=== PATIENT | female | born 1980 | race Caucasian/White ===

== ENCOUNTER → 2020-08-01 09:59 | Outpatient (BNVA) | payer OTHER, SELFPAY | PROVIDERS: Visit Provider Advanced Practice Midwife | DX: L73.9 Follicular disorder, unspecified (principal) | CPT/HCPCS: 99213 ==

== ENCOUNTER 2021-01-30 08:29 | Outpatient (REF) | payer OTHER, SELFPAY ==
[2021-01-30 10:42] LABS: HBsAGNum1 0.18 S/CO (0.00-0.99); Hepatitis B Surface Antigen Negative (Negative)
[2021-01-30 10:45] LABS: HIV AB/AG Nonreactive (Nonreactive); HIV Num 1 0.06 S/CO (0.00-0.99); ~HepC Num1 0.08 S/CO (0.00-0.79); ~Hepatitis C Antibody Nonreactive (Nonreactive)
[2021-01-31 04:30] LABS: Syphilis Screen Nonreactive (Nonreactive)
[2021-01-31 10:05] LABS: BV Int Neg Control Negative (Negative)
[2021-01-31 10:06] LABS: BV Int Pos Control Positive (Positive)
[2021-01-31 10:20] LABS: CT PCR NOT DETECTED (Not Detect.); NG PCR NOT DETECTED (Not Detect.)
[2021-02-03 18:51] LABS: HPV mRNA E6/E7 rflx Not Detected (Not Detected)
== END 2021-01-30 08:30 | disposition home or self-care (01) ==
LOC: HO.LAB 08:29
PROVIDERS: PCP Internal Medicine; Visit Provider Advanced Practice Midwife
DX: Z01.419 Encounter for gynecological examination (general) (routine) without abnormal findings (principal); Z11.51 Encounter for screening for human papillomavirus (HPV); Z11.4 Encounter for screening for human immunodeficiency virus [HIV]; Z11.3 Encounter for screening for infections with a predominantly sexual mode of transmission; Z01.84 Encounter for antibody response examination; Z20.2 Contact with and (suspected) exposure to infections with a predominantly sexual mode of transmission; Z87.42 Personal history of other diseases of the female genital tract
CPT/HCPCS: 36415; 86780; 86803; 87340; 87389; 87480; 87491; 87510; 87591; 87624; 87660; 88142

== ENCOUNTER 2021-03-29 08:30 | Outpatient (REF) | payer OTHER, SELFPAY ==
--- NOTE | ~2021-03-29 | MM_ITS ---
EXAMINATION: MM SCREENING DIGITAL BREAST TOMOSYNTHESIS, BILATERAL CLINICAL INFORMATION: Screening. Asymptomatic. Age 40. Family history breast cancer, mother. No prior breast imaging. The lifetime risk of breast cancer based on the Tyrer-Cuzick Model is 13%. COMPARISON: None (current study represents initial baseline exam). TECHNIQUE: Digital breast tomosynthesis is performed in both the craniocaudal and mediolateral oblique views along with computer-aided detection (CAD). Synthesized 2D images are generated from the tomosynthesis. FINDINGS: There are scattered areas of fibroglandular density (ACR BI-RADS breast composition Category b). Breast tissue composition borders on heterogeneously dense. There are no significant masses, abnormal calcifications, or other abnormalities. The axilla and skin contours are unremarkable. MM/MM tomosynthesis screening BI IMPRESSION: No mammographic evidence of malignancy. ASSESSMENT: BI-RADS 1: Negative RECOMMENDATION: Routine annual mammography screening, by age 40 or earlier as clinical risk factors warrant. This patient's information was entered into a reminder system with a target due date for their next mammogram.
== END 2021-03-29 08:31 | disposition home or self-care (01) ==
LOC: HO.MAMMO 08:30
PROVIDERS: Visit Provider Internal Medicine
DX: Z12.31 Encounter for screening mammogram for malignant neoplasm of breast (principal)
CPT/HCPCS: 77063; 77067

== ENCOUNTER 2021-10-09 11:07 | Outpatient (REF) | payer OTHER, SELFPAY ==
[2021-10-09 11:24] LABS: MANUAL DIFF FLAG NO
[2021-10-09 11:46] LABS: Basophils Percent Auto 0.2 % (0-2); Eosinophils Absolute Auto 0.1 X10*3/uL (0.0-0.4); Eosinophils Percent Auto 0.9 % (0-4); Hematocrit 40.1 % (37.0-47.0); Hemoglobin 13.2 g/dl (12.0-16.0); Imm Gran Abs Auto 0.01 X10*3/uL (0.00-0.03); Imm Gran Pct Auto 0.2 % (0.0-0.4); Lymphocytes Absolute Auto 1.5 X10*3/uL (1.2-4.9); Lymphocytes Percent Auto 22.3 % (20-40); Mean Corpuscular HGB Conc 32.9 g/dl (31.0-35.0); Mean Corpuscular Hemoglobin 27.3 pg (27.0-33.0); Mean Platelet Volume 10.3 fL (9.4-12.3); Monocytes Absolute Auto 0.5 X10*3/uL (0.1-1.2); Monocytes Percent Auto 7.7 % (2-11); Neutrophils Absolute Auto 4.5 x10*3/uL (2.0-8.3); Neutrophils Percent Auto 68.7 % (45-73); Platelet Count 237 X10*3/uL (160-400); Red Blood Count 4.83 X10*6/uL (4.20-5.50); Red Cell Distribution Width 13.7 % (11.0-16.0); White Blood Count 6.5 X10*3/uL (4.8-10.8)
[2021-10-09 12:06] LABS: Appearance Urine CLEAR; Color Urine YELLOW; Glucose Urine UA NEG (NEG); Leukocyte Esterase Urine NEG (NEG); Nitrite Urine NEG (NEG); Specific Gravity - Urine >= 1.030 (1.005-1.025); Urine Blood NEG (NEG); Urine Ketones NEG (NEG); Urine Protein NEG (NEG-TRACE)
[2021-10-09 12:10] LABS: Alanine Aminotransferase 18 U/L (0-31); Albumin Level 4.3 g/dL (3.5-5.0); Alkaline Phosphatase 80 U/L (39-117); Anion Gap 9 (12-20); Aspartate Amino Transferase 18 U/L (5-31); Bilirubin Total 0.5 mg/dL (0.0-1.0); Blood Urea Nitrogen 11 mg/dL (9-16); Calcium 9.8 mg/dL (8.4-10.2); Carbon Dioxide 26 mmol/L (22-29); Chloride 107 mmol/L (96-108); Cholesterol 169 mg/dL; Estimated Glomerular Filt Rate > 60; Glucose Fasting 95 mg/dL (60-99); HDL Cholesterol 46 mg/dL; LDL Cholesterol Calculated 105 mg/dl; Potassium 5.1 mmol/L (3.3-5.1); Sodium 137 mmol/L (135-145); Triglycerides 91 mg/dL
[2021-10-09 12:32] LABS: TSH reflex Free T4 0.94 uIU/mL (0.32-4.0); Vitamin D 25-OH Total 12.6 ng/mL (>30)
== END 2021-10-09 11:08 | disposition home or self-care (01) ==
LOC: HO.LAB 11:07
PROVIDERS: PCP Internal Medicine; Visit Provider Internal Medicine
DX: Z00.00 Encounter for general adult medical examination without abnormal findings (principal); E55.9 Vitamin D deficiency, unspecified
CPT/HCPCS: 36415; 80053; 80061; 81003; 82306; 84443; 85025

== ENCOUNTER 2022-02-02 08:25 | Outpatient (REF) | payer OTHER, SELFPAY ==
[2022-02-02 15:40] LABS: CT PCR NOT DETECTED (Not Detect.); NG PCR NOT DETECTED (Not Detect.)
[2022-02-03 15:27] LABS: BV Int Neg Control Negative (Negative); BV Int Pos Control Positive (Positive)
[2022-02-04 19:21] LABS: HPV mRNA E6/E7 rflx Not Detected (Not Detected)
== END 2022-02-02 08:26 | disposition home or self-care (01) ==
LOC: HO.LAB 08:25
PROVIDERS: PCP Internal Medicine; Visit Provider Advanced Practice Midwife
DX: Z01.411 Encounter for gynecological examination (general) (routine) with abnormal findings (principal); Z11.51 Encounter for screening for human papillomavirus (HPV); Z20.2 Contact with and (suspected) exposure to infections with a predominantly sexual mode of transmission; L65.9 Nonscarring hair loss, unspecified; R53.83 Other fatigue; Z98.890 Other specified postprocedural states; Z80.8 Family history of malignant neoplasm of other organs or systems
CPT/HCPCS: 87480; 87491; 87510; 87591; 87624; 87660; 88142

== ENCOUNTER 2022-02-04 10:51 | Outpatient (REF) | payer OTHER, SELFPAY ==
[2022-02-04 11:37] LABS: Hematocrit 40.7 % (37.0-47.0); Mean Corpuscular HGB Conc 31.9 g/dl (31.0-35.0); Mean Corpuscular Hemoglobin 26.7 pg (27.0-33.0); Mean Corpuscular Volume 83.7 fL (80.0-98.0); Mean Platelet Volume 10.2 fL (9.4-12.3); Platelet Count 249 X10*3/uL (160-400); Red Blood Count 4.86 X10*6/uL (4.20-5.50); White Blood Count 6.2 X10*3/uL (4.8-10.8)
[2022-02-04 12:19] LABS: HBsAGNum1 0.17 S/CO (0.00-0.99); HIV AB/AG Nonreactive (Nonreactive); HIV Num 1 0.06 S/CO (0.00-0.99); Hepatitis B Surface Antigen Negative (Negative); ~HepC Num1 0.08 S/CO (0.00-0.79); ~Hepatitis C Antibody Nonreactive (Nonreactive)
[2022-02-04 12:35] LABS: Syphilis Screen Nonreactive (Nonreactive)
[2022-02-04 12:49] LABS: Thyroid Stimulating Hormone 1.32 uIU/mL (0.32-4.0)
== END 2022-02-04 10:52 | disposition home or self-care (01) ==
LOC: HO.LAB 10:51
PROVIDERS: PCP Internal Medicine; Visit Provider Advanced Practice Midwife
DX: Z01.419 Encounter for gynecological examination (general) (routine) without abnormal findings (principal); Z11.4 Encounter for screening for human immunodeficiency virus [HIV]; Z11.59 Encounter for screening for other viral diseases; Z11.8 Encounter for screening for other infectious and parasitic diseases; Z13.29 Encounter for screening for other suspected endocrine disorder; R53.83 Other fatigue; L65.9 Nonscarring hair loss, unspecified; Z98.890 Other specified postprocedural states
CPT/HCPCS: 36415; 84443; 85027; 86780; 86803; 87340; 87389

== ENCOUNTER 2022-11-24 09:56 | Outpatient (REF) | payer OTHER, SELFPAY ==
[2022-11-24 10:16] LABS: MANUAL DIFF FLAG NO
[2022-11-24 10:30] LABS: Basophils Percent Auto 0.4 % (0-2); Eosinophils Absolute Auto 0.1 X10*3/uL (0.0-0.4); Hematocrit 40.8 % (37.0-47.0); Hemoglobin 13.4 g/dl (12.0-16.0); Imm Gran Abs Auto 0.02 X10*3/uL (0.00-0.03); Imm Gran Pct Auto 0.3 % (0.0-0.4); Lymphocytes Absolute Auto 2.4 X10*3/uL (1.2-4.9); Lymphocytes Percent Auto 33.3 % (20-40); Mean Corpuscular HGB Conc 32.8 g/dl (31.0-35.0); Mean Corpuscular Hemoglobin 27.3 pg (27.0-33.0); Mean Corpuscular Volume 83.3 fL (80.0-98.0); Mean Platelet Volume 10.2 fL (9.4-12.3); Monocytes Absolute Auto 0.5 X10*3/uL (0.1-1.2); Monocytes Percent Auto 6.3 % (2-11); Neutrophils Absolute Auto 4.3 x10*3/uL (2.0-8.3); Neutrophils Percent Auto 58.7 % (45-73); Platelet Count 260 X10*3/uL (160-400); Red Cell Distribution Width 13.8 % (11.0-16.0); White Blood Count 7.3 X10*3/uL (4.8-10.8)
[2022-11-24 10:44] LABS: Appearance Urine Clear; Color Urine Yellow; Glucose Urine UA Negative (Negative); Leukocyte Esterase Urine Negative (Negative); Nitrite Urine Negative (Negative); PH 6.5 (5.0-9.0); Urine Blood Negative (Negative); Urine Ketones Negative (Negative); Urine Protein Negative (Neg-Trace)
[2022-11-24 11:08] LABS: Erythrocyte Sedimentation Rate 12 MM/HR (0-20)
[2022-11-24 11:22] LABS: Alanine Aminotransferase 26 U/L (0-31); Albumin Level 4.2 g/dL (3.5-5.0); Alkaline Phosphatase 91 U/L (39-117); Anion Gap 12 (12-20); Aspartate Amino Transferase 19 U/L (5-31); Bilirubin Total 0.6 mg/dL (0.0-1.0); Blood Urea Nitrogen 10 mg/dL (9-16); C Reactive Protein 0.51 mg/dL (< or = 0.50); Calcium 9.5 mg/dL (8.4-10.2); Carbon Dioxide 26 mmol/L (22-29); Chloride 105 mmol/L (96-108); Cholesterol 201 mg/dL; Estimated Glomerular Filt Rate > 60; Glucose Fasting 97 mg/dL (60-99); HDL Cholesterol 50 mg/dL; LDL Cholesterol Calculated 124 mg/dl; Potassium 4.3 mmol/L (3.3-5.1); Sodium 139 mmol/L (135-145); Total Protein 6.9 g/dL (6.5-8.0); Triglycerides 139 mg/dL
[2022-11-24 11:39] LABS: Folate 6.5 ng/mL (> or = 4.0); TSH reflex Free T4 0.95 uIU/mL (0.32-4.0); Vitamin B12 374 pg/mL (200-900); Vitamin D 25-OH Total 10.8 ng/mL (>30)
[2022-11-26 15:04] LABS: Anti Nuclear Antibody Screen NEGATIVE (NEGATIVE)
== END 2022-11-24 09:57 | disposition home or self-care (01) ==
LOC: HO.LAB 09:56
PROVIDERS: PCP Internal Medicine; Visit Provider Internal Medicine
DX: Z00.00 Encounter for general adult medical examination without abnormal findings (principal); R53.83 Other fatigue; R30.0 Dysuria; M25.50 Pain in unspecified joint; E55.9 Vitamin D deficiency, unspecified; E78.00 Pure hypercholesterolemia, unspecified; E53.8 Deficiency of other specified B group vitamins
CPT/HCPCS: 36415; 80053; 80061; 81003; 82306; 82607; 82746; 84443; 85025; 85652; 86038; 86039; 86140

== ENCOUNTER 2022-12-04 15:30 | Outpatient (REF) | payer OTHER, SELFPAY ==
--- NOTE | ~2022-12-04 | MM_ITS ---
EXAMINATION: MM SCREENING DIGITAL BREAST TOMOSYNTHESIS, BILATERAL CLINICAL INFORMATION: Screening. Asymptomatic. The lifetime risk of breast cancer based on the Tyrer-Cuzick Model is 13%. COMPARISON: Mammography: 03/29/2021 (baseline) TECHNIQUE: Digital breast tomosynthesis is performed in both the craniocaudal and mediolateral oblique views along with computer-aided detection (CAD). Synthesized 2D images are generated from the tomosynthesis. FINDINGS: The breasts are heterogeneously dense, which may obscure small masses (ACR BI-RADS breast composition Category c). There are no significant masses, abnormal calcifications, or other abnormalities. Parenchymal pattern is similar to prior baseline exam. No architectural abnormality or significant changes. The axilla are unremarkable. MM/MM tomosynthesis screening BI IMPRESSION: No mammographic evidence of malignancy. ASSESSMENT: BI-RADS 1: Negative RECOMMENDATION: Routine annual mammography screening. This patient's information was entered into a reminder system with a target due date for their next mammogram.
== END 2022-12-04 15:31 | disposition home or self-care (01) ==
LOC: HO.MAMMO 15:30
PROVIDERS: PCP Internal Medicine; Visit Provider Internal Medicine
DX: Z12.31 Encounter for screening mammogram for malignant neoplasm of breast (principal)
CPT/HCPCS: 77063; 77067

== ENCOUNTER 2023-04-08 13:31 | Outpatient (REF) | payer OTHER, SELFPAY ==
[2023-04-09 00:54] LABS: CT PCR NOT DETECTED (Not Detect.); NG PCR NOT DETECTED (Not Detect.)
[2023-04-09 09:33] LABS: BV Int Neg Control Negative (Negative); BV Int Pos Control Positive (Positive)
[2023-04-13 22:13] LABS: HPV mRNA E6/E7 rflx Not Detected (Not Detected)
== END 2023-04-08 13:32 | disposition home or self-care (01) ==
LOC: HO.LNP 13:31
PROVIDERS: PCP Internal Medicine; Visit Provider Advanced Practice Midwife
DX: Z01.419 Encounter for gynecological examination (general) (routine) without abnormal findings (principal); E66.9 Obesity, unspecified; M25.50 Pain in unspecified joint; R53.83 Other fatigue; Z20.2 Contact with and (suspected) exposure to infections with a predominantly sexual mode of transmission; Z80.8 Family history of malignant neoplasm of other organs or systems; Z80.3 Family history of malignant neoplasm of breast; Z98.890 Other specified postprocedural states; Z79.899 Other long term (current) drug therapy
CPT/HCPCS: 0353U; 87480; 87510; 87624; 87660; 88142

== ENCOUNTER 2023-04-21 10:19 | Outpatient (REF) | payer OTHER, SELFPAY ==
[2023-04-21 11:01] LABS: Hematocrit 40.9 % (37.0-47.0); Hemoglobin 13.2 g/dl (12.0-16.0); Mean Corpuscular HGB Conc 32.3 g/dl (31.0-35.0); Mean Corpuscular Hemoglobin 26.8 pg (27.0-33.0); Mean Platelet Volume 10.7 fL (9.4-12.3); Platelet Count 236 X10*3/uL (160-400); Red Blood Count 4.93 X10*6/uL (4.20-5.50); Red Cell Distribution Width 14.5 % (11.0-16.0); White Blood Count 7.8 X10*3/uL (4.8-10.8)
[2023-04-21 11:23] LABS: Glucose Random 93 mg/dL (60-115)
[2023-04-21 11:42] LABS: HBsAGNum1 0.36 S/CO (0.00-0.99); HIV AB/AG Nonreactive (Nonreactive); HIV Num 1 0.05 S/CO (0.00-0.99); Hepatitis B Surface Antigen Negative (Negative); ~HepC Num1 0.09 S/CO (0.00-0.79); ~Hepatitis C Antibody Nonreactive (Nonreactive)
[2023-04-21 11:43] LABS: Syphilis Screen Nonreactive (Nonreactive)
[2023-04-21 11:46] LABS: Thyroid Stimulating Hormone 0.78 uIU/mL (0.32-4.0)
== END 2023-04-21 10:20 | disposition home or self-care (01) ==
LOC: HO.LAB 10:19
PROVIDERS: PCP Internal Medicine; Visit Provider Advanced Practice Midwife
DX: Z12.31 Encounter for screening mammogram for malignant neoplasm of breast (principal); M25.50 Pain in unspecified joint; Z80.8 Family history of malignant neoplasm of other organs or systems; Z98.890 Other specified postprocedural states; R53.83 Other fatigue; Z80.3 Family history of malignant neoplasm of breast; Z20.2 Contact with and (suspected) exposure to infections with a predominantly sexual mode of transmission; E66.9 Obesity, unspecified; Z01.419 Encounter for gynecological examination (general) (routine) without abnormal findings
CPT/HCPCS: 36415; 82947; 84443; 85027; 86780; 86803; 87340; 87389

== ENCOUNTER 2023-05-18 09:47 | Outpatient (AMB) | payer OTHER, SELFPAY ==
--- NOTE | 2023-05-18 09:47 | MHC.PC.OV ---
Vital Signs 05/18/23 09:48 Height 4 ft 11 in Weight 165 lb BMI 33.3 BP 128/80 Blood Pressure Location Lt brachial Position Sitting Pulse 84 Pulse Source Pulse Oximeter Pulse Oximetry (%) 97 Oxygen Delivery Method Room Air Intake Visit Reasons: 6m F/U anxiety, asthma, migraine Forms Designer Required: No Accompanied by: Self / Same As Patient Allergies mold Allergy (Severe, Verified 05/18/23 10:23) SOB, feels really sick Medication List - Last Reconciled 05/18/23 by Samuel Villalta MD baclofen 10 mg PO TID PRN bupropion HCl 150 mg PO QAM 90 days famotidine (Pepcid) 40 mg PO BEDTIME loratadine (Allergy Relief (loratadine)) 10 mg PO DAILY PRN 90 days magnesium citrate 200 mg PO DAILY nicotine 1 patch transdermal Q24H 14 days riboflavin (vitamin B2) ER 200 mg PO DAILY Ventolin HFA 90 mcg/actuation (albuterol sulfate) 2 puffs inhalation Q6H PRN 30 days NS Tobacco use date assessed: 05/18/23 Dental Screening Dental Screen Date: 05/18/23 Did you have a dental visit in the last 12 months?: Yes Did you have a dental problem in the last 6 months where you did not have access to dental care?: No Was dental information given to patient?: Patient has dentist HPI 6m F/U anxiety, asthma, migraine HPI Details Patient comes in today for her follow up visit States that she has been experiencing a lot of problems with her stomach for the past several months Relates that her stools/bowel movements have been erratic and often loose for the past 6 to 7 months (bowel movements were fairly regular previously) States that she has noticed (+) blood in her stool at times over the past couple of months Adds that she's had trouble swallowing at times for past 6 months and notes that this has been occurring more frequently lately States that she's had problems with acid reflux in the past Would like to see if she can be referred for evaluation of her stomach and bowels She has also noticed that the top of both of her feet now feel numb all the time States that she still has noticeable left-sided weakness and increased low back pain lately - has been taking a lot of Ibuprofen over the past few weeks to help relieve her pain and thinks that this is starting to affect her stomach Had an MRI of the lumbar spine done back in 2014 that revealed (+) disc protrusion She denies any headaches or dizziness Denies any chest pains, no shortness of breath No nausea /vomiting and denies any acute urinary symptoms PFSH Medical History Allergic rhinitis Anxiety Asthma History of abnormal cervical Pap smear History of active tuberculosis History of cholelithiasis History of sciatica Migraine Neck pain on left side Obesity (BMI 30-39.9) Seasonal allergies Smoker Surgical History History of bilateral tubal ligation History of loop electrical excision procedure (LEEP) Hx laparoscopic cholecystectomy Family History Father HTN (hypertension) CVD (cardiovascular disease) Diabetes mellitus Prostate cancer Mother Breast cancer Thyroid cancer CVD (cardiovascular disease) Brother Thyroid cancer Social History Housing: Apartment Alcohol intake: current Alcohol intake frequency: a few times a week Alcohol type: wine Patient Tobacco Use Status: Current everyday Tobacco user Cigarettes Per Day: 5 e-Cigarette/Vaping Use: Never Used Second Hand Smoke Exposure: Yes service: No Current 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 status: employed Gender identity: Female Cognitive needs: No Hearing needs: No Vision needs: No Female Reproductive History Menstrual Age of Menarche: 16 Questionnaire PHQ-9 Over the last 2 weeks, how often have you been bothered by any of the following problems? 1. Little interest or pleasure in doing things: not at all 2. Feeling down, depressed, or hopeless: not at all 3. Trouble falling or staying asleep, or sleeping too much: not at all 4. Feeling tired or having little energy: not at all 5. Poor appetite or overeating: not at all 6. Feeling bad about yourself - or that you are a failure or have let yourself or your family down: not at all 7. Trouble concentrating on things, such as reading the newspaper or watching television: not at all 8. Moving or speaking so slowly that other people could have noticed. Or the opposite - being so fidgety or restless that you have been moving around a lot more than usual: not at all 9. Thoughts that you would be better off or of hurting yourself in some way: not at all Total score: 0 Depression Screening Interpretation: Negative 72501 - PHQ-9 Billing: Yes Source: Developed by Drs. Hari Lopez, Thania Pelayo, Koby Arreola and colleagues, with an educational kaitlin from [employer]. Thrive Questionnaire Date Thrive assessed: 05/18/23 I am a: Patient What is your living situation today?: I have a steady place to live Within the past 12 months, did the food you bought not last and you didn't have the money to get more?: Never true Within the past 12 months, did you worry whether your food would run out before you got money to buy more?: Never true Do you have trouble paying for medicines?: No Do you have trouble getting transportation to medical appointments?: No Do you have trouble paying your heating and electricity bill?: No Do you have trouble taking care of your child, family member or friend?: No Do you have trouble with day-to-day activities such as bathing, preparing meals, shopping, managing finances, etc.?: No Are you currently unemployed and looking for a job?: No Are you interested in more education?: No Please select the resources that you would like help with: None Currently or been in a relationship where the following occur: no concerns reported AUDIT C Alcohol Use Questionnaire (AUDIT-C) 1. How often do you have a drink containing alcohol?: 2-3 times a week 2. How many drinks containing alcohol do you have on a typical day when you are drinking?: 1 or 2 3. How often do you have six or more drinks on one occasion?: Never Total Score: 3 Score Reviewed/Action Taken: Yes LATRELL-7 AMB Questionnaire LATRELL-7 Date LATRELL - 7 assessed: 05/18/23 Feeling nervous, anxious, or on edge: 0 = Not at all Not being able to stop or control worryin = Not at all Worrying too much about different things: 0 = Not at all Trouble relaxin = Not at all Being so restless that it is hard to sit still: 0 = Not at all Becoming easily annoyed or irritable: 0 = Not at all Feeling afraid as if something awful might happen: 0 = Not at all Total LATRELL-7 score (0-4 normal; 5-9 mild; 10-14 moderate; 15-21 severe): 0 Source: Developed by Drs. Hari Lopez, Thania Pelayo, Koby Arreola and colleagues, with an educational kaitlin from [employer]. Review of Systems Const Denies chills, Reports fatigue, Denies fever(s), Denies headache(s) and Reports weakness (left-sided) ENT Reports dysphagia (occurring more often lately - see HPI), Denies dizziness, Denies otalgia, Denies headache(s), Denies neck pain, Denies odynophagia and Denies sore throat Card Denies chest pain, Denies palpitations and Denies dyspnea Resp Denies cough and Denies dyspnea GI Reports abdominal pain (on and off), Reports hematochezia (on and off over the past couple of months), Denies constipation, Reports dysphagia (occurring more often lately - see HPI), Denies heartburn, Reports diarrhea (at times), Reports loose stools (often), Denies nausea, Denies odynophagia and Denies vomiting Denies difficulty voiding, Denies nocturia and Denies dysuria Musc Details: (+) left-sided weakness - chronic Reports back pain (over the lower back - chronic), Denies neck pain and Reports numbness (over dorsum of both feet - constant now) Skin/Breast Denies rash Neuro Denies dizziness, Denies headache(s), Reports numbness (over dorsum of both feet - constant now) and Reports weakness (left-sided) Endo Reports fatigue and Denies palpitations Physical exam (Primary Care) Vital Signs: Last Vital Signs Pulse 84 05/18/23 09:48 BP 128/80 05/18/23 09:48 Pulse Ox 97 05/18/23 09:48 Oxygen Delivery Method Room Air 05/18/23 09:48 BMI result Body Mass Index 33.3 Tobacco/Smoking Status: Tobacco use Status Tobacco use date assessed 05/18/23 05/18/23 09:57 Patient Tobacco Use Status Current everyday Tobacco 05/18/23 09:57 e-Cigarette/Vaping Use Never Used 05/18/23 09:57 PHQ-9: PHQ-9 Score PHQ-9: Total score 0 05/18/23 10:26 Depression Screening Interpretation: Negative Thrive Assessment: Date of Thrive Assessment Date Thrive assessed 05/18/23 05/18/23 09:57 Currently or been in a relationship where the following occur: no concerns reported Const General: no acute distress and alert HENMT Throat: Yes posterior oropharynx normal and Yes tonsils normal (no TP congestion) Neck Neck: Yes no lymphadenopathy and Yes supple Resp Auscultation: clear to auscultation bilaterally, no rales and no wheezes Cardio Rate: regular rate Rhythm: regular rhythm Heart sounds: no murmurs GI Palpation (GI): Soft to palpation, nontender and No hepatosplenomegaly present Back/Spine/Pelvis Thoracic/Lumbar Spine: straight leg raise negative bilaterally and lumbar spinal tenderness Skin General skin exam: no rashes or lesions noted Extrem General: Yes no clubbing, cyanosis or edema Assessment and Plan Assessment & Plan (1) Dysphagia: Code(s): R13.10 - Dysphagia, unspecified Qualifiers: Dysphagia type: unspecified Qualified Code(s): R13.10 - Dysphagia, unspecified Plan: Will refer patient to GI for further evaluation and management of both her swallowing as well as her recently increasing stomach and bowel issues (2) Intermittent diarrhea: Code(s): R19.7 - Diarrhea, unspecified Plan: Suspect IBS although her recent (+) blood in her stool as well as her Hx of GERD raises some concerns Will refer her to GI [facility] for further evaluation and management - may need EGD for further evaluation Have advised patient for now to avoid taking any NSAIDs until she is properly evaluated by GI (3) Lumbar disc herniation with radiculopathy: Code(s): M51.16 - Intervertebral disc disorders with radiculopathy, lumbar region Plan: (+) left L3-L4 disc protrusion on MRI done back in 2014 Due to her chronic low back pain, persistent left-sided weakness and bilateral feet numbness, will try sending her for a repeat lumbar spine MRI for further evaluation (4) Bilateral leg numbness: Code(s): R20.0 - Anesthesia of skin Plan: MRI of the brain done back in 2016 came back normal EMG & NCV done in 04/2017 revealed (+) mild left ulnar neuropathy across the elbow, 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 and left mid to lower lumbar radiculopathy Will send patient for a repeat lumbar spine MRI for now for further evaluation Will also send her for some labs [facility] for further evaluation Advised that if her labs and lumbar spine MRI are unrevealing, may need to refer her back to Neurology as well as repeat EMG and NCV for further evaluation (5) Asthma: Code(s): J45.909 - Unspecified asthma, uncomplicated Qualifiers: Asthma severity: mild Asthma persistence: intermittent Asthma complication type: uncomplicated Qualified Code(s): J45.20 - Mild intermittent asthma, uncomplicated Plan: Stable - continue Flovent HFA 44 mcg 1 puff BID and Albuterol HFA 2 puffs 4 times a day as needed (6) Migraine: Code(s): G43.909 - Migraine, unspecified, not intractable, without status migrainosus Qualifiers: Migraine type: unspecified Status migrainosus presence: without status migrainosus Intractability: not intractable Qualified Code(s): G43.909 - Migraine, unspecified, not intractable, without status migrainosus Plan: Continue OTC Excedrin Migraine PRN Follow up with neurology (sees Dr. Reza) as scheduled (7) Allergic rhinitis: Code(s): J30.9 - Allergic rhinitis, unspecified Qualifiers: Allergic rhinitis trigger: fungal spores Allergic rhinitis seasonality: non-seasonal Qualified Code(s): J30.89 - Other allergic rhinitis Plan: Continue Loratadine 10 mg QD PRN (8) Urticaria: Code(s): L50.9 - Urticaria, unspecified Plan: Still has on and off urticaria but states that Loratadine helps keep it in check Was referred back to allergy & immunology for further evaluation and management at her previous visit but patient states that she was never contacted to schedule her appointment and did not wish to pursue this again for now (9) Anxiety: Code(s): F41.9 - Anxiety disorder, unspecified Plan: Continue Bupropion XL 150 mg QD (10) Smoker: Code(s): F17.200 - Nicotine dependence, unspecified, uncomplicated Plan: Counseled again on smoking cessation (11) Obesity (BMI 30-39.9): Code(s): E66.9 - Obesity, unspecified Plan: Reinforced diet/exercise as tolerated/lose weight Plan Follow up in 3 months Orders: Orders MR lumbar spine wo con 05/18/23 M51.16 - Intervertebral disc disorders with radiculopathy, lumbar region, R20.0 - Anesthesia of skin Comprehensive Met. Panel 05/18/23 R20.0 - Anesthesia of skin, R53.83 - Other fatigue Magnesium 05/18/23 E83.42 - Hypomagnesemia, R20.0 - Anesthesia of skin TSH reflex Free T4 05/18/23 R20.0 - Anesthesia of skin, R53.83 - Other fatigue Complete Blood Count Auto Diff 05/18/23 R20.0 - Anesthesia of skin, R53.83 - Other fatigue Erythrocyte Sedimentation Rate 05/18/23 R20.0 - Anesthesia of skin UA CC w/rflx Micro + Cult 05/18/23 R20.0 - Anesthesia of skin, R30.0 - Dysuria Referrals Gastroenterology Referral K92.1 - Melena, R10.9 - Unspecified abdominal pain, R13.10 - Dysphagia, unspecified, R19.7 - Diarrhea, unspecified Coding Level of Care Code Est Pt Level 4 (19709) Diagnoses Dysphagia R13.10 Dysphagia type: unspecified Intermittent diarrhea R19.7 Lumbar disc herniation with radiculopathy M51.16 Bilateral leg numbness R20.0 Asthma J45.20 Asthma severity: mild Asthma persistence: intermittent Asthma complication type: uncomplicated Migraine G43.909 Migraine type: unspecified Status migrainosus presence: without status migrainosus Intractability: not intractable Allergic rhinitis J30.89 Allergic rhinitis trigger: fungal spores Allergic rhinitis seasonality: non-seasonal Urticaria L50.9 Anxiety F41.9 Smoker F17.200 Obesity (BMI 30-39.9) E66.9
[2023-05-18 09:48] VITALS: BP 128/80; PULSE 84; O2SAT 97; BMI 33.3
== END 2023-05-18 10:39 | disposition home or self-care (01) ==
PROVIDERS: PCP Internal Medicine; Visit Provider Internal Medicine
DX: R13.10 Dysphagia, unspecified (principal); G43.909 Migraine, unspecified, not intractable, without status migrainosus; F41.9 Anxiety disorder, unspecified; Z68.33 Body mass index [BMI] 33.0-33.9, adult; E66.9 Obesity, unspecified; R19.7 Diarrhea, unspecified; R20.0 Anesthesia of skin; M51.16 Intervertebral disc disorders with radiculopathy, lumbar region; F17.200 Nicotine dependence, unspecified, uncomplicated; J45.20 Mild intermittent asthma, uncomplicated; J30.89 Other allergic rhinitis; L50.9 Urticaria, unspecified
CPT/HCPCS: 99214

== ENCOUNTER 2023-05-26 14:31 | Outpatient (REF) | payer OTHER, SELFPAY ==
[2023-05-26 16:09] LABS: Alanine Aminotransferase 23 U/L (0-31); Albumin Level 4.1 g/dL (3.5-5.0); Alkaline Phosphatase 89 U/L (39-117); Anion Gap 15 (12-20); Aspartate Amino Transferase 22 U/L (5-31); Bilirubin Total 0.5 mg/dL (0.0-1.0); Blood Urea Nitrogen 8 mg/dL (9-16); Calcium 9.4 mg/dL (8.4-10.2); Carbon Dioxide 20 mmol/L (22-29); Chloride 108 mmol/L (96-108); Estimated Glomerular Filt Rate > 60; Glucose Random 86 mg/dL (60-115); Magnesium 2.1 mg/dL (1.6-2.6); Potassium 3.9 mmol/L (3.3-5.1); Sodium 139 mmol/L (135-145); Total Protein 7.3 g/dL (6.5-8.0)
[2023-05-26 16:27] LABS: TSH reflex Free T4 1.32 uIU/mL (0.32-4.0)
[2023-05-26 18:13] LABS: Appearance Urine Clear; Color Urine Yellow; Glucose Urine UA Negative (Negative); Leukocyte Esterase Urine Trace (Negative); Nitrite Urine Negative (Negative); PH 5.5 (5.0-9.0); UMIC TRIGGER UACC YES; Urine Blood Large (3+) (Negative); Urine Ketones Negative (Negative); Urine Protein Negative (Neg-Trace)
[2023-05-26 18:24] LABS: Bacteria Urine None Seen (None Seen); Hyaline Casts Urine 0-2 /LPF (0-2); RBC Urine >20 /HPF (0-2); UACC Culture Trigger YES
== END 2023-05-26 14:32 | disposition home or self-care (01) ==
LOC: HO.LAB 14:31
PROVIDERS: PCP Internal Medicine; Visit Provider Internal Medicine
DX: K58.2 Mixed irritable bowel syndrome (principal); K21.9 Gastro-esophageal reflux disease without esophagitis; K92.1 Melena; R20.0 Anesthesia of skin; R53.83 Other fatigue; R13.10 Dysphagia, unspecified; R10.9 Unspecified abdominal pain; E55.9 Vitamin D deficiency, unspecified
CPT/HCPCS: 36415; 80053; 81001; 83735; 84443; 87086; 99202

== ENCOUNTER 2023-05-26 15:17 | Outpatient (AMB) | payer OTHER, SELFPAY ==
--- NOTE | 2023-05-26 15:34 | A.OFFVIS_ITS ---
Intake Vital Signs 05/26/23 15:36 Height 4 ft 11 in Weight 166 lb 3.657 oz BMI 33.6 BP 145/88 H Blood Pressure Location Lt brachial Position Sitting Pulse 72 Intake Visit Reasons: dysphagia, abd pain, diarrhea, melena Intake Note: Gladys presents in office as anew.patient for dysphagia, abd pain, diarrhea, melena PT CC: pt reports having dysphagia , abd pain , diarrhea, vomiting, GERD. 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 Patient was sent to us by her PCP for evaluation of multiple GI symptoms. Patient reports postprandial abdominal pain with dyspepsia, heartburn without dysphagia or odynophagia. Patient reports that no matter what she eats she will have epigastric discomfort. Patient reports occasional nausea no vomiting. Patient reports that she will experience postprandial loose stools and then being constipated. Patient also reports postprandial abdominal bloating. Patient reports occasional blood when wiping after bowel movement. Patient denies actual melena or hematochezia. Denies unintentional weight loss or ribbon like stools. Patient states that she is not on any particular diet. PFSH Medical History Allergic rhinitis Anxiety Asthma History of abnormal cervical Pap smear History of active tuberculosis History of cholelithiasis History of sciatica Low back pain Migraine Neck pain on left side Obesity (BMI 30-39.9) Seasonal allergies Smoker Surgical History History of bilateral tubal ligation History of loop electrical excision procedure (LEEP) Hx laparoscopic cholecystectomy Family History Father HTN (hypertension) CVD (cardiovascular disease) Diabetes mellitus Prostate cancer Mother Breast cancer Thyroid cancer CVD (cardiovascular disease) Brother Thyroid cancer Social History Housing: Apartment Alcohol intake: current Alcohol intake frequency: a few times a week Alcohol type: wine Patient Tobacco Use Status: Current everyday Tobacco user Cigarettes Per Day: 5 e-Cigarette/Vaping Use: Never Used Second Hand Smoke Exposure: Yes service: No Current 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 status: employed Gender identity: Female Cognitive needs: No Hearing needs: No Vision needs: No Female Reproductive History Menstrual Age of Menarche: 16 Review of Systems Const Denies weight gain and Denies weight loss ENT Reports no additional complaints, Denies dysphagia and Denies odynophagia Card Reports no additional complaints Resp Reports no additional complaints GI Reports abdominal pain, Denies belching, Denies melena, Reports bloating, Reports constipation, Denies dysphagia, Denies excessive flatus, Reports dyspepsia, Reports heartburn, Denies diarrhea, Reports loose stools, Reports nausea (Occasional), Denies odynophagia and Denies vomiting Reports no additional complaints Musc Reports no additional complaints Neuro Reports no additional complaints Psych Reports no additional complaints Endo Reports no additional complaints Physical Exam Vital Signs: Last Vital Signs Pulse 72 05/26/23 15:36 BP 145/88 H 05/26/23 15:36 BMI result Body Mass Index 33.6 Const General: healthy appearing, no acute distress and well developed Nutritional Appearance: obese Orientation/consciousness: patient oriented x3 HEENT Head: Yes normal to inspection, Yes normocephalic and Yes atraumatic Face and sinus: Yes normal facial exam Mouth: Normal oral and palatal mucosa present Throat: Yes posterior oropharynx normal, Yes tonsils normal and Yes uvula midline Eyes General: appearance normal, both eyes and all related structures Neck Neck: Yes normal visual inspection, Yes full ROM and Yes trachea midline Thyroid: Thyroid normal Resp Effort & Inspection: normal respiratory effort, able to speak in complete sentences, no tracheal deviation and symmetric chest movement Auscultation: clear to auscultation bilaterally Cardio Rate: regular rate Heart sounds: S1 normal heart sound present and S2 normal heart sound present GI Inspection: Yes normal to inspection, No distended and Yes obesity Palpation (GI): Soft to palpation, not firm, nontender and No hepatosplenomegaly present Auscultation: normal bowel sounds General: Yes no CVA tenderness Back/Spine/Pelvis Back: no CVA tenderness Skin General skin exam: elasticity normal, turgor normal and dry skin Neuro General: patient oriented x3 Psych Appearance: grossly normal Mental Status: mental status grossly normal Speech and movement: Normal speech and movement present Assessment & Plan Assessment & Plan (1) Abdominal pain: Code(s): R10.9 - Unspecified abdominal pain Qualifiers: Abdominal location: generalized Qualified Code(s): R10.84 - Generalized abdominal pain Plan: Occasional postprandial abdominal pain. Sometimes patient reports that the pain is the even few hours after she eats. She reports postprandial abdominal bloating. Will check lipase, transglutaminase to rule out pancreatitis and celiac. (2) Dysphagia: Code(s): R13.10 - Dysphagia, unspecified Qualifiers: Dysphagia type: unspecified Qualified Code(s): R13.10 - Dysphagia, unspecified Plan: Patient reports having trouble swallowing certain food. Will start patient on P PI, however patient will wait to take PPI until she does H pylori breath test.. Will do H pylori breath test in the office in 2 weeks. Will treat empirically if positive. (3) GERD (gastroesophageal reflux disease): Code(s): K21.9 - Gastro-esophageal reflux disease without esophagitis Qualifiers: Esophagitis presence: esophagitis presence not specified Qualified Code(s): K21.9 - Gastro-esophageal reflux disease without esophagitis Plan: Epigastric discomfort and occasional dyspepsia with dysphagia. Will start patient on omeprazole daily. Patient is to start that after she does H pylori testing. Patient was encouraged to avoid dietary triggers in late night snacking. Staying upright for minimal 3 hours after meals discussed with patient. (4) IBS (irritable bowel syndrome): Code(s): K58.9 - Irritable bowel syndrome without diarrhea Qualifiers: Irritable bowel syndrome type: with both diarrhea and constipation Qualified Code(s): K58.2 - Mixed irritable bowel syndrome Plan: Occasional postprandial loose stools and then constipation. Patient can start Citrucel in the morning and Senokot at night time to help her eliminate her bowels better. I will see patient in 2 months, sooner on as needed basis. Patient is agreeable to this plan and verbalizes understanding of instructions. She was given the opportunity to ask questions and all questions answered. Thank you for allowing me to participate in her care Orders: Orders H Pylori Breath Test 05/26/23 Vitamin B12 and Folate 05/26/23 R19.7 - Diarrhea, unspecified Hemoglobin A1c 05/26/23 R10.9 - Unspecified abdominal pain, R13.10 - Dysphagia, unspecified Lipase 05/26/23 R10.9 - Unspecified abdominal pain Vitamin D 25-OH (D2 and D3) 05/26/23 E55.9 - Vitamin D deficiency, unspecified Transglutaminase IgA 05/26/23 R10.9 - Unspecified abdominal pain Transglutaminase Ab IgG 05/26/23 R10.9 - Unspecified abdominal pain Medications: New methylcellulose (laxative) (Citrucel) 500 mg PO DAILY 30 tabs 2RF K59.00 - Constipation, unspecified sennosides (Natural Senna Laxative) 8.6 mg PO BEDTIME 90 tabs 3RF constipation K59.00 - Constipation, unspecified omeprazole 20 mg PO DAILY 30 caps 3RF K21.9 - Gastro-esophageal reflux disease without esophagitis Coding Level of Care Code New Pt Level 4 (48012) Diagnoses Abdominal pain R10.84 Abdominal location: generalized Dysphagia R13.10 Dysphagia type: unspecified GERD (gastroesophageal reflux disease) K21.9 Esophagitis presence: esophagitis presence not specified IBS (irritable bowel syndrome) K58.2 Irritable bowel syndrome type: with both diarrhea and constipation Time Spent (min) 45 Comment 30 minutes spent with patient and additional 15 minutes spent reviewing her records
[2023-05-26 15:36] VITALS: BP 145/88; PULSE 72; BMI 33.6
== END 2023-05-26 16:17 | disposition home or self-care (01) ==
PROVIDERS: PCP Internal Medicine; Visit Provider Nurse Practitioner Family
DX: R10.84 Generalized abdominal pain (principal); R13.10 Dysphagia, unspecified; K21.9 Gastro-esophageal reflux disease without esophagitis; K58.2 Mixed irritable bowel syndrome
CPT/HCPCS: 99204

== ENCOUNTER 2023-06-08 08:06 | Outpatient (REF) | payer OTHER, SELFPAY ==
[2023-06-11 16:43] LABS: H Pylori Breath Test Negative (Negative)
== END 2023-06-08 08:07 | disposition home or self-care (01) ==
LOC: HO.LNP 08:06
PROVIDERS: PCP Internal Medicine; Visit Provider Nurse Practitioner Family
DX: Z12.2 Encounter for screening for malignant neoplasm of respiratory organs (principal)
CPT/HCPCS: 83013; 99211

== ENCOUNTER 2023-08-04 15:32 | Outpatient (AMB) | payer OTHER, SELFPAY ==
[2023-08-04 15:40] VITALS: BP 140/84; PULSE 91; BMI 32.9
--- NOTE | 2023-08-04 15:40 | A.OFFVIS_ITS ---
Intake Vital Signs 08/04/23 15:40 Height 4 ft 11 in Weight 163 lb 2.273 oz BMI 32.9 BP 140/84 H Blood Pressure Location Rt brachial Position Sitting Pulse 91 Intake Visit Reasons: 2 month follow up Intake Note: Patient returns to in office visit today in 2 months follow up of diarrhea. CC: Patient c/o epigastric pain, diarrhea, nausea, and vomiting. She states she has try to avoid greasy food and eating better and is doing better from vomits but continues to have nausea.Pt reports Omeprazole has helped with acid reflux, and heartburn. She also states that the bleeding has stopped. 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 Sometimes patient reports that the pain is the even few hours after she eats. She reports postprandial abdominal bloating. Will check lipase, transglutaminase to rule out pancreatitis and celiac. Dysphagia Patient reports having trouble swallowing certain food. Will start patient on PPI, however patient will wait to take PPI until she does H pylori breath test.. Will do H pylori breath test in the office in 2 weeks. Will treat empirically if positive. GERD (gastroesophageal reflux disease) Epigastric discomfort and occasional dyspepsia with dysphagia. Will start patient on omeprazole daily. Patient is to start that after she does H pylori testing. Patient was encouraged to avoid dietary triggers in late night snacking. Staying upright for minimal 3 hours after meals discussed with patient. IBS (irritable bowel syndrome) Occasional postprandial loose stools and then constipation. Patient can start Citrucel in the morning and Senokot at night time to help her eliminate her bowels better. I will see patient in 2 months, sooner on as needed basis. Patient is agreeable to this plan and verbalizes understanding of instructions. She was given the opportunity to ask questions and all questions answered. TODAY'S VISIT Patient is here today for follow-up. Patient reports that since last time I have seen her she has been doing little better. Her symptoms of acid reflux are suppressed for the most part, however she continued to have occasional epigastric discomfort with heartburn with occasional dyspepsia. She no longer feels like she is having trouble swallowing food. Patient states that her symptoms are worse at night time. Sometimes in the morning when she wakes up she feels very nauseous. Patient denies any vomiting. Patient reports that she is moving her bowels better now. Denies melena, hematochezia, unintentional weight loss or ribbon like stools. Patient states that she is trying to change her diet and eating food that it is healthier. Occasional postprandial abdominal bloating depending on what she eats. [facility] Medical History Low back pain Anxiety Neck pain on left side Smoker Obesity (BMI 30-39.9) Allergic rhinitis Migraine Asthma Seasonal allergies History of sciatica History of cholelithiasis History of active tuberculosis History of abnormal cervical Pap smear Surgical History Hx laparoscopic cholecystectomy History of bilateral tubal ligation History of loop electrical excision procedure (LEEP) Family History Father HTN (hypertension) CVD (cardiovascular disease) Diabetes mellitus Prostate cancer Mother Breast cancer Thyroid cancer CVD (cardiovascular disease) Brother Thyroid cancer Social History Housing: Apartment Alcohol intake: current Alcohol intake frequency: a few times a week Alcohol type: wine Patient Tobacco Use Status: Current everyday Tobacco user Cigarettes Per Day: 5 e-Cigarette/Vaping Use: Never Used Second Hand Smoke Exposure: Yes service: No Current 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 status: employed Gender identity: Female Cognitive needs: No Hearing needs: No Vision needs: No Female Reproductive History Menstrual Age of Menarche: 16 Review of Systems Const Denies weight gain and Denies weight loss ENT Reports no additional complaints, Denies dysphagia and Denies odynophagia Card Reports no additional complaints Resp Reports no additional complaints GI Reports abdominal pain (Epigastric), Denies belching, Denies melena, Reports bloating, Denies change in bowel habits, Denies dysphagia, Denies excessive flatus, Denies dyspepsia, Reports heartburn, Denies diarrhea, Denies loose stools, Reports nausea, Denies odynophagia and Denies vomiting Reports no additional complaints Musc Reports no additional complaints Neuro Reports no additional complaints Psych Reports no additional complaints Endo Reports no additional complaints Physical Exam Vital Signs: Last Vital Signs Pulse 91 08/04/23 15:40 BP 140/84 H 08/04/23 15:40 BMI result Body Mass Index 32.9 Const General: healthy appearing, no acute distress and well developed Nutritional Appearance: obese Orientation/consciousness: patient oriented x3 HEENT Head: Yes normal to inspection, Yes normocephalic and Yes atraumatic Face and sinus: Yes normal facial exam Mouth: Normal oral and palatal mucosa present Throat: Yes posterior oropharynx normal, Yes tonsils normal and Yes uvula midline Eyes General: appearance normal, both eyes and all related structures Neck Neck: Yes normal visual inspection, Yes full ROM and Yes trachea midline Thyroid: Thyroid normal Resp Effort & Inspection: normal respiratory effort, able to speak in complete sentences, no tracheal deviation and symmetric chest movement Auscultation: clear to auscultation bilaterally Cardio Rate: regular rate Heart sounds: S1 normal heart sound present and S2 normal heart sound present GI Inspection: Yes normal to inspection, No distended and Yes obesity Palpation (GI): Soft to palpation, not firm, nontender and No hepatosplenomegaly present Auscultation: normal bowel sounds General: Yes no CVA tenderness Back/Spine/Pelvis Back: no CVA tenderness Skin General skin exam: elasticity normal, turgor normal and dry skin Neuro General: patient oriented x3 Psych Appearance: grossly normal Mental Status: mental status grossly normal Assessment & Plan Assessment & Plan (1) Abdominal pain: Code(s): R10.9 - Unspecified abdominal pain Qualifiers: Abdominal location: generalized Qualified Code(s): R10.84 - Generalized abdominal pain (2) Dysphagia: Code(s): R13.10 - Dysphagia, unspecified Qualifiers: Dysphagia type: unspecified Qualified Code(s): R13.10 - Dysphagia, unspecified (3) Intermittent diarrhea: Code(s): R19.7 - Diarrhea, unspecified (4) Blood in stool: Code(s): K92.1 - Melena (5) GERD (gastroesophageal reflux disease): Code(s): K21.9 - Gastro-esophageal reflux disease without esophagitis Qualifiers: Esophagitis presence: esophagitis presence not specified Qualified Code(s): K21.9 - Gastro-esophageal reflux disease without esophagitis (6) IBS (irritable bowel syndrome): Code(s): K58.9 - Irritable bowel syndrome without diarrhea Qualifiers: Irritable bowel syndrome type: with both diarrhea and constipation Qualified Code(s): K58.2 - Mixed irritable bowel syndrome Plan Occasional epigastric discomfort depending on what patient eats. Patient will stop taking famotidine at bedtime and we will start her on sucralfate. Patient was encouraged to eat small meals. I will send her for upper endoscopy to rule out gastritis, duodenitis, esophagitis, gastric or peptic ulcers, H pylori, Weaver's. I will see her after the procedure, sooner on as needed basis. Patient is agreeable to this plan and verbalizes understanding of instructions. She was given the opportunity to ask questions and all questions answered. Thank you for allowing me to participate in her care Medications: New sucralfate 1 g PO BEDTIME 30 tabs 4RF R19.7 - Diarrhea, unspecified Discontinued famotidine Discontinued Reason: Doctor's Order 40 mg PO BEDTIME 30 tabs 2RF Coding Level of Care Code Est Pt Level 4 (73852) Diagnoses Generalized abdominal pain R10.84 Abdominal location: generalized Dysphagia, unspecified type R13.10 Dysphagia type: unspecified Intermittent diarrhea R19.7 Blood in stool K92.1 Gastroesophageal reflux disease, unspecified whether esophagitis present K21.9 Esophagitis presence: esophagitis presence not specified Irritable bowel syndrome with both constipation and diarrhea K58.2 Irritable bowel syndrome type: with both diarrhea and constipation Time Spent (min) 35 Comment 20 minutes spent with patient and additional 15 minutes spent reviewing her records.
== END 2023-08-04 16:10 | disposition home or self-care (01) ==
PROVIDERS: PCP Internal Medicine; Visit Provider Nurse Practitioner Family
DX: R10.84 Generalized abdominal pain (principal); R13.10 Dysphagia, unspecified; R19.7 Diarrhea, unspecified; K92.1 Melena; K21.9 Gastro-esophageal reflux disease without esophagitis; K58.2 Mixed irritable bowel syndrome
CPT/HCPCS: 99214

== ENCOUNTER → 2023-08-04 15:32 | Outpatient (BNVA) | payer OTHER, SELFPAY | PROVIDERS: PCP Internal Medicine; Visit Provider Nurse Practitioner Family | DX: R10.84 Generalized abdominal pain (principal); R19.7 Diarrhea, unspecified; R13.10 Dysphagia, unspecified; K92.1 Melena; K21.9 Gastro-esophageal reflux disease without esophagitis; K58.2 Mixed irritable bowel syndrome | CPT/HCPCS: 99212 ==

== ENCOUNTER 2023-08-13 11:46 | Outpatient (REF) | payer OTHER, SELFPAY ==
--- NOTE | ~2023-08-13 | XR_ITS ---
EXAMINATION: XR LUMBOSACRAL SPINE CLINICAL INFORMATION: Lower back pain. COMPARISON: None available. TECHNIQUE: AP and lateral views of the lumbar spine and lateral view of the lumbosacral junction. FINDINGS: The vertebral bodies and posterior elements are normal. The disc spaces are preserved and the vertebral alignment is normal. The paraspinal soft tissues are normal. There are right upper quadrant surgical clips. XR/XR lumbar spine 2-3V IMPRESSION: Unremarkable examination.
== END 2023-08-13 11:47 | disposition home or self-care (01) ==
LOC: HO.XRAY 11:46
PROVIDERS: PCP Internal Medicine; Visit Provider Internal Medicine
DX: M54.50 Low back pain, unspecified (principal); M51.16 Intervertebral disc disorders with radiculopathy, lumbar region
CPT/HCPCS: 72100

== ENCOUNTER 2023-08-18 10:25 | Outpatient (AMB) | payer OTHER, SELFPAY ==
[2023-08-18 10:27] VITALS: BP 120/80; PULSE 76; O2SAT 98; BMI 33.0
--- NOTE | 2023-08-18 10:27 | MHC.PC.OV ---
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 Accompanied by: Self / Same As Patient Allergies mold Allergy (Severe, Verified 08/18/23 10:27) SOB, feels really sick No Known Drug Allergies Allergy (Unknown, Verified 08/18/23 10:27) none Tobacco use date assessed: 08/18/23 Dental Screening Dental Screen Date: 08/18/23 Did you have a dental visit in the last 12 months?: Yes Did you have a dental problem in the last 6 months where you did not have access to dental care?: No Was dental information given to patient?: Patient has dentist HPI 3mth f/u HPI Details Patient comes in today for her follow up visit States that she continues to experience recurrent abdominal pain and bloating, especially after eating Has been trialed on PPI but states that the Rx has not helped so far Was recently started on Carafate Q HS by GI and she is now scheduled for EGD next month for further evaluation She denies any headaches or dizziness Denies any chest pains, no SOB No nausea/vomiting; still has intermitted loose stools and at other times, has constipation Also still has chronic low back pain and would like to know how her lumbar spine x-rays done last week came out Adds that she also needs to have her immunization titers checked again for school and a chest x-ray repeated due to her Hx of positive PPD PFSH Medical History Low back pain Anxiety Neck pain on left side Smoker Obesity (BMI 30-39.9) Allergic rhinitis Migraine Asthma Seasonal allergies History of sciatica History of cholelithiasis History of active tuberculosis History of abnormal cervical Pap smear Surgical History Hx laparoscopic cholecystectomy History of bilateral tubal ligation History of loop electrical excision procedure (LEEP) Family History Father HTN (hypertension) CVD (cardiovascular disease) Diabetes mellitus Prostate cancer Mother Breast cancer Thyroid cancer CVD (cardiovascular disease) Brother Thyroid cancer Social History Housing: Apartment Alcohol intake: current Alcohol intake frequency: a few times a week Alcohol type: wine Patient Tobacco Use Status: Current everyday Tobacco user Cigarettes Per Day: 5 e-Cigarette/Vaping Use: Never Used Second Hand Smoke Exposure: Yes service: No Current 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 status: employed Gender identity: Female Cognitive needs: No Hearing needs: No Vision needs: No Female Reproductive History Menstrual Age of Menarche: 16 Questionnaire PHQ-9 Over the last 2 weeks, how often have you been bothered by any of the following problems? 1. Little interest or pleasure in doing things: not at all 2. Feeling down, depressed, or hopeless: not at all 3. Trouble falling or staying asleep, or sleeping too much: not at all 4. Feeling tired or having little energy: not at all 5. Poor appetite or overeating: not at all 6. Feeling bad about yourself - or that you are a failure or have let yourself or your family down: not at all 7. Trouble concentrating on things, such as reading the newspaper or watching television: not at all 8. Moving or speaking so slowly that other people could have noticed. Or the opposite - being so fidgety or restless that you have been moving around a lot more than usual: not at all 9. Thoughts that you would be better off or of hurting yourself in some way: not at all Total score: 0 Depression Screening Interpretation: Negative Depression Screening Done: Yes 20400 - PHQ-9 Billing: Yes Source: Developed by Drs. Hari Lopez, Thania Pelayo, Koby Arreola and colleagues, with an educational kaitlin from [employer]. Thrive Questionnaire Date Thrive assessed: 08/18/23 I am a: Patient What is your living situation today?: I have a steady place to live Within the past 12 months, did the food you bought not last and you didn't have the money to get more?: Never true Within the past 12 months, did you worry whether your food would run out before you got money to buy more?: Never true Do you have trouble paying for medicines?: No Do you have trouble getting transportation to medical appointments?: No Do you have trouble paying your heating and electricity bill?: No Do you have trouble taking care of your child, family member or friend?: No Do you have trouble with day-to-day activities such as bathing, preparing meals, shopping, managing finances, etc.?: No Are you currently unemployed and looking for a job?: No Are you interested in more education?: No Please select the resources that you would like help with: None Currently or been in a relationship where the following occur: no concerns reported AUDIT C Alcohol Use Questionnaire (AUDIT-C) 1. How often do you have a drink containing alcohol?: 2-3 times a week 2. How many drinks containing alcohol do you have on a typical day when you are drinking?: 1 or 2 3. How often do you have six or more drinks on one occasion?: Never Total Score: 3 Score Reviewed/Action Taken: Yes LATRELL-7 AMB Questionnaire LATRELL-7 Date LATRELL - 7 assessed: 08/18/23 Feeling nervous, anxious, or on edge: 0 = Not at all Not being able to stop or control worryin = Not at all Worrying too much about different things: 0 = Not at all Trouble relaxin = Not at all Being so restless that it is hard to sit still: 0 = Not at all Becoming easily annoyed or irritable: 0 = Not at all Feeling afraid as if something awful might happen: 0 = Not at all Total LATRELL-7 score (0-4 normal; 5-9 mild; 10-14 moderate; 15-21 severe): 0 Source: Developed by Drs. Hari Lopez, Thania Pelayo, Koby Arreola and colleagues, with an educational kaitlin from [employer]. Review of Systems Const Denies chills, Reports fatigue, Denies fever(s), Denies headache(s) and Reports weakness (left-sided, occasionally) Eyes Denies change in vision ENT Reports dysphagia (on and off), Denies dizziness, Denies otalgia, Denies headache(s), Denies neck pain, Denies odynophagia and Denies sore throat Card Denies chest pain, Denies palpitations and Denies dyspnea Resp Denies cough and Denies dyspnea GI Reports abdominal pain (on and off), Reports bloating (on and off), Denies constipation, Reports dysphagia (on and off), Denies heartburn, Reports diarrhea (at times, usually after eating), Reports loose stools (often), Denies nausea, Denies odynophagia and Denies vomiting Denies difficulty voiding, Denies nocturia and Denies dysuria Musc Details: (+) left-sided weakness - chronic Reports back pain (over the lower back - chronic), Denies neck pain and Reports numbness (over dorsum of both feet - constant now) Skin/Breast Denies rash Neuro Denies dizziness, Denies headache(s), Reports numbness (over dorsum of both feet - constant now) and Reports weakness (left-sided, occasionally) Endo Reports fatigue and Denies palpitations Physical exam (Primary Care) Vital Signs: Last Vital Signs Pulse 76 08/18/23 10:27 BP 120/80 08/18/23 10:27 Pulse Ox 98 08/18/23 10:27 Oxygen Delivery Method Room Air 08/18/23 10:27 BMI result Body Mass Index 33.0 Tobacco/Smoking Status: Tobacco use Status Tobacco use date assessed 08/18/23 08/18/23 10:36 Patient Tobacco Use Status Current everyday Tobacco 08/18/23 10:36 e-Cigarette/Vaping Use Never Used 08/18/23 10:36 PHQ-9: PHQ-9 Score PHQ-9: Total score 0 08/18/23 10:36 Depression Screening Interpretation: Negative Thrive Assessment: Date of Thrive Assessment Date Thrive assessed 08/18/23 08/18/23 10:36 Currently or been in a relationship where the following occur: no concerns reported Const General: no acute distress and alert HENMT Ears: TM's normal bilaterally and EAC's normal Throat: Yes posterior oropharynx normal and Yes tonsils normal (no TP congestion) Neck Neck: Yes no lymphadenopathy and Yes supple Resp Auscultation: clear to auscultation bilaterally, no rales and no wheezes Cardio Rate: regular rate Rhythm: regular rhythm Heart sounds: no murmurs GI Palpation (GI): Soft to palpation and nontender Auscultation: normal bowel sounds Back/Spine/Pelvis Thoracic/Lumbar Spine: straight leg raise negative bilaterally and lumbar spinal tenderness Skin Rashes: no rashes Extrem General: Yes no clubbing, cyanosis or edema Results Reviewed Results Reviewed: Laboratory Tests 04/21/23 05/26/23 05/26/23 10:40 15:12 15:12 WBC 7.8 Hgb 13.2 Hct 40.9 Plt Count 236 Sodium 139 Potassium 3.9 Creatinine Estimated GFR Random Glucose 86 Calcium 9.4 Magnesium 2.1 AST 22 ALT 23 TSH 1.32 Ur Specific [place] Urine Protein Urine Glucose (UA) Urine Blood 05/26/23 05/26/23 05/26/23 15:12 16:10 16:10 WBC Hgb Hct Plt Count Sodium Potassium Creatinine 0.76 Estimated GFR > 60 Random Glucose Calcium Magnesium AST ALT TSH Ur Specific [place] 1.010 Urine Protein Negative Urine Glucose (UA) Negative Urine Blood Large (3+) H Assessment and Plan Assessment & Plan (1) Dysphagia: Code(s): R13.10 - Dysphagia, unspecified Qualifiers: Dysphagia type: unspecified Qualified Code(s): R13.10 - Dysphagia, unspecified Plan: She was referred to and is now seeing GI for further evaluation and management of her GI issues H.pylori breath test done back in May 2023 came back negative She has been started on Omeprazole 20 mg QD - seems to have helped with her dysphagia somewhat but not so much with her other stomach symptoms She was started on Carafate 1 gm Q HS by GI recently and is now scheduled for EGD next month (2) Intermittent diarrhea: Code(s): R19.7 - Diarrhea, unspecified Plan: Suspect IBS although the (+) blood in her stool as well as her Hx of GERD raises some concerns She has been referred to GI and is now scheduled for EGD next month for further evaluation Have advised patient to continue avoiding any NSAIDs (3) Lumbar disc herniation with radiculopathy: Code(s): M51.16 - Intervertebral disc disorders with radiculopathy, lumbar region Plan: (+) left L3-L4 disc protrusion on MRI done back in 2014 Due to her chronic low back pain, persistent left-sided weakness and bilateral feet numbness, we have tried sending her for a repeat lumbar spine MRI for further evaluation but this was denied by insurance She had repeat lumbar spine x-rays done at [facility] last week - report is still pending at this time (4) Bilateral leg numbness: Code(s): R20.0 - Anesthesia of skin Plan: MRI of the brain done back in 2016 came back normal EMG & NCV done in 04/2017 revealed (+) mild left ulnar neuropathy across the elbow, 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 and left mid to lower lumbar radiculopathy Repeat lumbar spine MRI requested recently for further evaluation was denied by her insurance Labs done a few months ago came back grossly normal May need to consider repeat EMG and NCV for further evaluation if her symptoms persist (5) Asthma: Code(s): J45.909 - Unspecified asthma, uncomplicated Qualifiers: Asthma severity: mild Asthma persistence: intermittent Asthma complication type: uncomplicated Qualified Code(s): J45.20 - Mild intermittent asthma, uncomplicated Plan: Stable - continue Flovent HFA 44 mcg 1 puff BID and Albuterol HFA 2 puffs 4 times a day as needed (6) Migraine: Code(s): G43.909 - Migraine, unspecified, not intractable, without status migrainosus Qualifiers: Migraine type: unspecified Status migrainosus presence: without status migrainosus Intractability: not intractable Qualified Code(s): G43.909 - Migraine, unspecified, not intractable, without status migrainosus Plan: Continue OTC Excedrin Migraine PRN Follow up with neurology (sees Dr. Reza) as scheduled (7) Allergic rhinitis: Code(s): J30.9 - Allergic rhinitis, unspecified Qualifiers: Allergic rhinitis trigger: fungal spores Allergic rhinitis seasonality: non-seasonal Qualified Code(s): J30.89 - Other allergic rhinitis Plan: Continue Loratadine 10 mg QD PRN (8) Urticaria: Code(s): L50.9 - Urticaria, unspecified Plan: Still has on and off urticaria but states that Loratadine helps keep it in check Was referred back to allergy & immunology for further evaluation and management at her previous visit but patient states that she was never contacted to schedule her appointment and did not wish to pursue this again for now (9) Anxiety: Code(s): F41.9 - Anxiety disorder, unspecified Plan: Continue Bupropion XL 150 mg QD (10) Smoker: Code(s): F17.200 - Nicotine dependence, unspecified, uncomplicated Plan: Counseled again on smoking cessation (11) Obesity (BMI 30-39.9): Code(s): E66.9 - Obesity, unspecified Plan: Reinforced diet/exercise as tolerated/lose weight (12) History of positive PPD: Code(s): Z92.89 - Personal history of other medical treatment Plan: Will send patient for repeat (yearly) chest x-rays for further evaluation due to her Hx of positive PPD (13) Incomplete immunization status: Code(s): Z28.39 - Other underimmunization status Plan: Per request, will send her to the lab to recheck her immunization titers (for school enrollment purposes) Plan Follow up in 4 months Orders: Orders Varicella IgG Antibody Today Z28.39 - Other underimmunization status MMR IgG Measles Mumps Rubella Today Z28.39 - Other underimmunization status Hepatitis B Profile Today Z.39 - Other underimmunization status XR chest 2V Today Z92.89 - Personal history of other medical treatment Coding Level of Care Code Est Pt Level 4 (48098) Diagnoses Dysphagia, unspecified type R13.10 Dysphagia type: unspecified Intermittent diarrhea R19.7 Lumbar disc herniation with radiculopathy M51.16 Bilateral leg numbness R20.0 Mild intermittent asthma without complication J45.20 Asthma severity: mild Asthma persistence: intermittent Asthma complication type: uncomplicated Migraine without status migrainosus, not intractable, unspecified migraine type G43.909 Migraine type: unspecified Status migrainosus presence: without status migrainosus Intractability: not intractable Non-seasonal allergic rhinitis due to fungal spores J30.89 Allergic rhinitis trigger: fungal spores Allergic rhinitis seasonality: non-seasonal Urticaria L50.9 Anxiety F41.9 Smoker F17.200 Obesity (BMI 30-39.9) E66.9 History of positive PPD Z92.89 Incomplete immunization status Z28.39
== END 2023-08-18 11:09 | disposition home or self-care (01) ==
PROVIDERS: PCP Internal Medicine; Visit Provider Internal Medicine
DX: R13.10 Dysphagia, unspecified (principal); R19.7 Diarrhea, unspecified; M51.16 Intervertebral disc disorders with radiculopathy, lumbar region; R20.0 Anesthesia of skin; J45.20 Mild intermittent asthma, uncomplicated; G43.909 Migraine, unspecified, not intractable, without status migrainosus; J30.89 Other allergic rhinitis; L50.9 Urticaria, unspecified; F41.9 Anxiety disorder, unspecified; F17.200 Nicotine dependence, unspecified, uncomplicated; E66.9 Obesity, unspecified; Z92.89 Personal history of other medical treatment
CPT/HCPCS: 99214

== ENCOUNTER 2023-08-18 11:18 | Outpatient (REF) | payer OTHER, SELFPAY ==
--- NOTE | ~2023-08-18 | XR_ITS ---
EXAMINATION: XR CHEST CLINICAL INFORMATION: Personal history of other medical treatment. COMPARISON: Prior chest radiographs, most recently 08/05/2018. TECHNIQUE: Frontal and lateral views of the chest were obtained. FINDINGS: The heart, great vessels, pulmonary vasculature and mediastinum are normal. The lungs show no focal infiltrate, effusion or pneumothorax. There is linear scar/subsegmental atelectasis in the right perihilar region and the bases. No acute osseous abnormality is seen. There are right upper quadrant surgical clips. XR/XR chest 2V IMPRESSION: 1. No focal infiltrate or congestive heart failure is seen. 2. There is interim appearance of bilateral scattered foci of linear scar/subsegmental atelectasis, most pronounced in the right perihilar region. Recommend short-term follow-up chest radiographs to ensure stability/clearance and exclude the possibility of underlying obstructive process.
[2023-08-18 11:33] LABS: MANUAL DIFF FLAG NO
[2023-08-18 11:58] LABS: Basophils Percent Auto 0.5 % (0-2); Eosinophils Absolute Auto 0.2 X10*3/uL (0.0-0.4); Eosinophils Percent Auto 2.1 % (0-4); Hematocrit 40.2 % (37.0-47.0); Imm Gran Abs Auto 0.02 X10*3/uL (0.00-0.03); Imm Gran Pct Auto 0.2 % (0.0-0.4); Lymphocytes Absolute Auto 2.4 X10*3/uL (1.2-4.9); Lymphocytes Percent Auto 29.3 % (20-40); Mean Corpuscular HGB Conc 32.3 g/dl (31.0-35.0); Mean Corpuscular Volume 83.6 fL (80.0-98.0); Mean Platelet Volume 10.3 fL (9.4-12.3); Monocytes Absolute Auto 0.6 X10*3/uL (0.1-1.2); Monocytes Percent Auto 7.1 % (2-11); Neutrophils Percent Auto 60.8 % (45-73); Platelet Count 282 X10*3/uL (160-400); Red Blood Count 4.81 X10*6/uL (4.20-5.50); Red Cell Distribution Width 14.3 % (11.0-16.0); White Blood Count 8.2 X10*3/uL (4.8-10.8)
[2023-08-18 12:34] LABS: Appearance Urine Clear; Color Urine Yellow; Glucose Urine UA Negative (Negative); Leukocyte Esterase Urine Negative (Negative); Nitrite Urine Negative (Negative); Urine Blood Negative (Negative); Urine Ketones Negative (Negative); Urine Protein Negative (Neg-Trace)
[2023-08-18 12:51] LABS: Erythrocyte Sedimentation Rate 13 MM/HR (0-20)
[2023-08-18 13:10] LABS: HBS Num1 > 1000.00 mIU/mL (0-7.99); HBc Num1 0.07 S/CO (0.00-0.79); HBsAGNum1 0.42 S/CO (0.00-0.99); Hepatitis B Core Antibody Nonreactive (Nonreactive); Hepatitis B Surface Antigen Negative (Negative); ~Hepatitis B Surface Antibody REACTIVE (Nonreactive)
[2023-08-20 17:39] LABS: Rubella IgG Antibody 2.77 Index
== END 2023-08-18 11:19 | disposition home or self-care (01) ==
LOC: HO.XRAY 11:18
PROVIDERS: PCP Internal Medicine; Visit Provider Internal Medicine
DX: R20.0 Anesthesia of skin (principal); R53.83 Other fatigue; R30.0 Dysuria; Z28.39 Other underimmunization status; Z92.89 Personal history of other medical treatment
CPT/HCPCS: 36415; 71046; 81003; 85025; 85652; 86704; 86706; 86735; 86762; 86765; 86787; 87340

== ENCOUNTER 2023-10-07 08:48 | Day surgery (SDC) | payer OTHER, SELFPAY ==
[2023-10-05 14:50] VITALS: BMI 32.9
--- NOTE | 2023-10-06 09:42 | P.CONAN_ITS ---
Documented by User: Haylee Mcclure NP 10/06/23 09:43 HPI - Anesthesia Eval Consult details Narrative: 43yo F for Upper Endoscopy PMFSH Active Problems Active Problems: All Active Problems (Updated 10/05/23 @ 14:47 by Nydia Jiménez RN) Incomplete immunization status (Acute) History of positive PPD (Acute) Bilateral leg numbness (Acute) Lumbar disc herniation with radiculopathy (Acute) Blood in stool (Acute) Intermittent diarrhea (Acute) Abdominal pain (Acute) Dysphagia (Acute) Breast cancer screening by mammogram (Acute) Arthralgia (Acute) Family history of thyroid cancer (Acute) Hair thinning (Acute) Fatigue (Acute) Annual physical exam (Acute) Vaginal itching (Acute) Well woman exam with routine gynecological exam (Acute) Family history of breast cancer (Acute) Potential exposure to STD (Acute) Urticaria (Acute) Folliculitis (Acute) Migraine headache with aura (Acute) Low back pain (Acute) History of loop electrical excision procedure (LEEP) (Acute) Anxiety (Acute) Neck pain on left side (Acute) Smoker (Acute) Obesity (BMI 30-39.9) (Acute) Allergic rhinitis (Acute) Migraine (Acute) Asthma (Acute) Seasonal allergies (Acute) Past Medical History Medical History Positive PPD Low back pain Anxiety Neck pain on left side Smoker Obesity (BMI 30-39.9) Allergic rhinitis Migraine Asthma Seasonal allergies History of sciatica History of cholelithiasis History of active tuberculosis History of abnormal cervical Pap smear Family History Family History Father HTN (hypertension) CVD (cardiovascular disease) Diabetes mellitus Prostate cancer Mother Breast cancer Thyroid cancer CVD (cardiovascular disease) Brother Thyroid cancer Surgical History Surgical History Hx laparoscopic cholecystectomy History of bilateral tubal ligation History of loop electrical excision procedure (LEEP) Social History Social History Housing: Apartment Alcohol intake: current Alcohol intake frequency: a few times a week Alcohol type: wine Patient Tobacco Use Status: Current everyday Tobacco user Tobacco use type: Cigarette Cigarettes Per Day: 5 Smoked in Last 30 Days: Yes e-Cigarette/Vaping Use: Never Used Patient Interested in Nicotine Replacement: No Second Hand Smoke Exposure: Yes Are you DNR?: No Advance Directives: No Advance Directives Information Provided: Yes Nutrition Risks: No Nutritional Risk FDLMP: currently menstruati service: No Current 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 status: employed Gender identity: Female Cognitive needs: No Hearing needs: No Vision needs: No Meds Allergies Allergy/AdvReac Type Severity Reaction Status Date / Time mold Allergy Severe SOB, feels Verified 10/07/23 09:11 really sick No Known Drug Allergies Allergy Unknown none Verified 08/18/23 10:27 Home Medications Medication Instructions Recorded Confirmed Last Taken Type magnesium citrate 100 mg tablet 200 mg PO DAILY 08/01/20 05/18/23 Unknown History riboflavin (vitamin B2) 250 mg 200 mg PO DAILY 08/01/20 05/18/23 Unknown History tablet,extended release latanoprost 0.005 % eye drops 1 drp ophthalmic (eye) BEDTIME 08/04/23 Unknown History Exam Height,Weight and Vital Signs: Height 4 ft 11 in Weight 73.936 kg Pertinent Lab Results Pertinent Lab Results: Laboratory Tests 05/26/23 08/18/23 15:12 11:32 WBC 8.2 Hgb 13.0 Hct 40.2 Plt Count 282 Sodium 139 Potassium 3.9 Chloride 108 Carbon Dioxide 20 L BUN 8 L Creatinine 0.76 Assessment and Plan Assessment Anesthesia Assessment: Chart Reviewed Documented by User: Jad Barth MD 10/07/23 09:13 PENDING SALE TO [facility] Past Medical History Medical History Positive PPD Low back pain Anxiety Neck pain on left side Smoker Obesity (BMI 30-39.9) Allergic rhinitis Migraine Asthma Seasonal allergies History of sciatica History of cholelithiasis History of active tuberculosis History of abnormal cervical Pap smear Family History Family History Father HTN (hypertension) CVD (cardiovascular disease) Diabetes mellitus Prostate cancer Mother Breast cancer Thyroid cancer CVD (cardiovascular disease) Brother Thyroid cancer Family history of problems with anesthesia: No Surgical History Surgical History Hx laparoscopic cholecystectomy History of bilateral tubal ligation History of loop electrical excision procedure (LEEP) History of Problems with Anesthesia: No Social History Social History Housing: Apartment Alcohol intake: current Alcohol intake frequency: a few times a week Alcohol type: wine Patient Tobacco Use Status: Current everyday Tobacco user Tobacco use type: Cigarette Cigarettes Per Day: 5 Smoked in Last 30 Days: Yes e-Cigarette/Vaping Use: Never Used Patient Interested in Nicotine Replacement: No Second Hand Smoke Exposure: Yes Are you DNR?: No Advance Directives: No Advance Directives Information Provided: Yes Nutrition Risks: No Nutritional Risk FDLMP: currently menstruati service: No Current 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 status: employed Gender identity: Female Cognitive needs: No Hearing needs: No Vision needs: No Meds Allergies Allergy/AdvReac Type Severity Reaction Status Date / Time mold Allergy Severe SOB, feels Verified 10/07/23 09:11 really sick No Known Drug Allergies Allergy Unknown none Verified 08/18/23 10:27 Home Medications Medication Instructions Recorded Confirmed Last Taken Type magnesium citrate 100 mg tablet 200 mg PO DAILY 08/01/20 05/18/23 Unknown History riboflavin (vitamin B2) 250 mg 200 mg PO DAILY 08/01/20 05/18/23 Unknown History tablet,extended release latanoprost 0.005 % eye drops 1 drp ophthalmic (eye) BEDTIME 08/04/23 Unknown History Exam Airway Mallampati Class: III TM Dist: <=3cm Neck ROM: Limited Heart: rrr Lungs: cta Assessment and Plan Assessment Anesthesia Assessment: Anesthesia Plan Discussed Final Anesthetic Review Family History of Problems with Anesthesia: No History of Problems with Anesthesia: No NPO: Yes ASA Class: III Final Preanesthetic Review: No Changes in Pt Med Stat, Meds/Allgs Chart Reviewed, Consent Obtained/Reviewed and Anes Risks/Benef Reviewed Patient Risk: Intermediate Procedure Risk: Intermediate Anesthetic Plan Anesthetic Plan: GA and Agree w/ Assess. and Plan Disposition: Standard PACU
[2023-10-07 09:09] VITALS: BMI 33.3
[2023-10-07] MEDS: Lactated Ringers 1,000 ML 100 ML IVCONT (09:21)
[2023-10-07 09:32] VITALS: BP 133/69; PULSE 64; RESP 18; TEMP 36.6; O2SAT 98
--- NOTE | 2023-10-07 10:34 | MHC.SHP ---
Pre-Procedural Eval Section A Date of Service: 10/07/23 Section B Chief Complaint: Epigastric pain Details of Present Illness: dysphagia, Fh thyroid cancer Relevant Family History (Specify if Yes): Yes Relevant Social History: Tobacco Use Present Medications: see Short Stay Collaborative assessment Medical History: Significant History (Positive PPD Low back pain Anxiety Neck pain on left side Smoker Obesity (BMI 30-39.9) Allergic rhinitis Migraine Asthma Seasonal allergies History of sciatica History of cholelithiasis History of active tuberculosis History of abnormal cervical Pap smear) History of Previous Operations: Relevant previous surgery/procedure and date(s) ( Hx laparoscopic cholecystectomy History of bilateral tubal ligation History of loop electrical excision procedure (LEEP)) Allergies: Allergies Allergy/AdvReac Type Severity Reaction Status Date / Time mold Allergy Severe SOB, feels Verified 10/07/23 09:11 really sick No Known Drug Allergies Allergy Unknown none Verified 08/18/23 10:27 Review of Systems Sugical H&P ROS: Negative: Constitution, Cardiovascular, Respiratory, Neurological, Psychiatric, Hem-Onc, Allergic/Immunologic, Gastrointestinal, Genitourinary, Musculoskeletal, Integumentary, Endocrine and Eyes/Ears/Nose/Throat Exam Surgical H&P Exam: Normal: HEENT, Normal: Heart, Normal: Lungs, Normal: Extremities, Normal: Abdomen, Normal: Skin and Normal: Neurological Plan Diagnosis/Plan: Unchanged I have reviewed the history and physical and performed a pertinent physical examination on my patient. No changes have occurred unless specified. Time Spent With Patient Time: Total time managing care of this patient today ____ minutes.
--- NOTE | 2023-10-07 10:57 | W.PM.OPN ---
Operative Note Operative Note Date of Service: 10/07/23 Narrative: Procedure Description: EGD Indication: dysphagia, epigastric pain Anesthesia: MAC FLEXIBLE TRANSORAL UPPER GASTROINTESTINAL ENDOSCOPY UPPER ENDOSCOPY Consent: Indications for the procedure and potential complications of bleeding, perforation, reaction to medications and missed diagnosis were discussed with the patient and informed consent was obtained. Instrument: Olympus GIF H 190 J mid size upper endoscope Monitoring: Vital signs and clinical assessment, continuous EKG monitoring, Pulse oximetry, Carbon Dioxide monitoring and blood pressure monitoring were done throughout the procedure. Procedure: The patient was placed in the left lateral decubitis position and pre-procedure medications were administered and a bite block was placed. The endoscope was inserted into the mouth and advanced under direct vision to the third part of duodenum. A careful inspection was made as the upper endoscope was withdrawn including a retroflexed examination of the proximal stomach; Findings and interventions are described below. Findings: Larynx:normal Esophagus: GE junction at 33 cm, diaphragm hiatus at 35 cm, consistent with 2 cm sliding hiatal hernia, schatzki ring noted, balloon dilation doen at LES and UES to 20 mm, no tears seen Stomach: normal mucosa. Biopsies were obtained. Grade 2 flap valve on retroflexed examination of the cardia. there was reduced motility, pylorus was dilated to 20 mm, no tears seen. Duodenum: Mild bulbar duodenitis, bx taken Intervention: Biopsies as noted above, balloon dilation Impression/Findings: hiatal hernia schatzki ring duodenitis possible gastroparesis PLAN: await BX consider GES if ongoing sx GERd precautions smoking cessation
[2023-10-07 11:04] VITALS: BP 111/73; PULSE 91; RESP 16; TEMP 36.5; O2SAT 97
[2023-10-07 11:19] VITALS: BP 130/91; PULSE 92; RESP 18; TEMP 36.5; O2SAT 94
== END 2023-10-07 12:01 | disposition home or self-care (01) ==
PROVIDERS: PCP Internal Medicine; Visit Provider Internal Medicine Gastroenterology
PROC: 0DJ08ZZ Inspection of Upper Intestinal Tract, Via Natural or Artificial Opening Endoscopic (ICD-10-PCS; CPT 43235; principal; 2023-10-07 11:50)
DX: K29.80 Duodenitis without bleeding (principal); K22.2 Esophageal obstruction; K44.9 Diaphragmatic hernia without obstruction or gangrene; K21.9 Gastro-esophageal reflux disease without esophagitis; R13.10 Dysphagia, unspecified; J45.909 Unspecified asthma, uncomplicated; K92.1 Melena; K58.9 Irritable bowel syndrome, unspecified; F17.210 Nicotine dependence, cigarettes, uncomplicated; E66.9 Obesity, unspecified; Z68.32 Body mass index [BMI] 32.0-32.9, adult; Z79.899 Other long term (current) drug therapy
CPT/HCPCS: 43249; 43245; 43239; 88305; 88342; C1726; J2704

== ENCOUNTER → 2023-10-07 08:48 | Outpatient (BNV) | payer OTHER, SELFPAY | PROVIDERS: PCP Internal Medicine; Visit Provider Internal Medicine Gastroenterology | DX: K22.2 Esophageal obstruction (principal); K29.80 Duodenitis without bleeding | CPT/HCPCS: 43239; 43245; 43249 ==

== ENCOUNTER 2023-10-29 13:36 | Outpatient (AMB) | payer OTHER, SELFPAY ==
--- NOTE | 2023-10-29 13:50 | A.OFFVIS_ITS ---
Intake Vital Signs 10/29/23 13:54 Height 4 ft 11 in Weight 160 lb BMI 32.3 BP 118/75 Blood Pressure Location Lt brachial Position Sitting Pulse 69 Intake Visit Reasons: s/P EGD;; Dr. Ash Intake Note: Patient follow up for EGD results. Patient cc: N/V, abdominal pain with bloating also between diarrhea and constipation. 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 Ash HPI Details LAST VISIT: Abdominal pain Dysphagia Intermittent diarrhea Blood in stool GERD (gastroesophageal reflux disease) IBS (irritable bowel syndrome) Plan Occasional epigastric discomfort depending on what patient eats. Patient will stop taking famotidine at bedtime and we will start her on sucralfate. Patient was encouraged to eat small meals. I will send her for upper endoscopy to rule out gastritis, duodenitis, esophagitis, gastric or peptic ulcers, H pylori, Weaver's. I will see her after the procedure, sooner on as needed basis. Patient is agreeable to this plan and verbalizes understanding of instructions. She was given the opportunity to ask questions and all questions answered. ? Thank you for allowing me to participate in her care Medications New sucralfate 1 g PO BEDTIME 30 tabs 4RF R19.7 Discontinued famotidine Discontinued Reason: Doctor's Order 40 mg PO BEDTIME 30 tabs 2RF UPPER ENDOSCOPY Findings: Larynx:normal Esophagus: GE junction at 33 cm, diaphragm hiatus at 35 cm, consistent with 2 cm sliding hiatal hernia, schatzki ring noted, balloon dilation doen at LES and UES to 20 mm, no tears seen Stomach: normal mucosa. Biopsies were obtained. Grade 2 flap valve on retroflexed examination of the cardia. there was reduced motility, pylorus was dilated to 20 mm, no tears seen. Duodenum: Mild bulbar duodenitis, bx taken Intervention: Biopsies as noted above, balloon dilation Impression/Findings: hiatal hernia schatzki ring duodenitis possible gastroparesis PLAN: await BX consider GES if ongoing sx GERd precautions smoking cessation PATHOLOGY RESULTS Diagnosis A. Duodenum, biopsy: Duodenal mucosa with predominantly preserved villi and focal mild changes consistent with chronic/non-specific duodenitis. B. Stomach, biopsy: Gastric antral mucosa with focal minimal chronic inactive inflamation; negative for H pylori, intestinal metaplasia and dysplasia. C. Esophago-gastric junction, biopsy: Squamous mucosa with no specific changes; no columnar mucosa present. D. Esophagus, distal, biopsy: Squamous mucosa with no specific changes; no columnar mucosa present. E. Esophagus, proximal, biopsy: Squamous mucosa with no specific changes; no columnar mucosa present TODAY'S VISIT: Patient is here today for follow-up and to discuss upper endoscopy results. Patient reports that he continue stool have symptoms of epigastric discomfort postprandially. Occasional nausea. Postprandial abdominal bloating. Patient does report occasional loose stools and then constipation. Patient reports that omeprazole has been helping, however she continues to have epigastric pain. Patient is trying to avoid spicy or fried food. Take sucralfate at bedtime and reports that her symptoms are better. Upper endoscopy and biopsy results discussed with patient. As mentioned above balloon dilation performed, hiatal hernia found. Gastric emptying study ordered by Dr. Ash, awaiting appointment. [facility] Medical History Positive PPD Low back pain Anxiety Neck pain on left side Smoker Obesity (BMI 30-39.9) Allergic rhinitis Migraine Asthma Seasonal allergies History of sciatica History of cholelithiasis History of active tuberculosis History of abnormal cervical Pap smear Surgical History (Updated 10/29/23 @ 09:07 by Reba Mo) History of esophagogastroduodenoscopy (EGD) Hx laparoscopic cholecystectomy History of bilateral tubal ligation History of loop electrical excision procedure (LEEP) Family History Father HTN (hypertension) CVD (cardiovascular disease) Diabetes mellitus Prostate cancer Mother Breast cancer Thyroid cancer CVD (cardiovascular disease) Brother Thyroid cancer Social History Housing: Apartment Alcohol intake: current Alcohol intake frequency: a few times a week Alcohol type: wine Patient Tobacco Use Status: Current everyday Tobacco user Tobacco use type: Cigarette Cigarettes Per Day: 5 e-Cigarette/Vaping Use: Never Used Second Hand Smoke Exposure: Yes service: No Current 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 status: employed Gender identity: Female Cognitive needs: No Hearing needs: No Vision needs: No Female Reproductive History Menstrual Age of Menarche: 16 Physical Exam Vital Signs: Last Vital Signs Pulse 69 10/29/23 13:54 BP 118/75 10/29/23 13:54 BMI result Body Mass Index 32.3 Const General: healthy appearing, no acute distress and well developed Nutritional Appearance: obese Orientation/consciousness: patient oriented x3 Resp Effort & Inspection: normal respiratory effort, able to speak in complete sentences, no tracheal deviation and symmetric chest movement Auscultation: clear to auscultation bilaterally Cardio Rate: regular rate GI Inspection: Yes normal to inspection, No distended and Yes obesity Palpation (GI): Soft to palpation, not firm, nontender and No hepatosplenomegaly present Auscultation: normal bowel sounds General: Yes no CVA tenderness Back/Spine/Pelvis Back: no CVA tenderness Skin General skin exam: elasticity normal, turgor normal and dry skin Neuro General: patient oriented x3 Psych Appearance: grossly normal Mental Status: mental status grossly normal Assessment & Plan Assessment & Plan (1) Intermittent diarrhea: Code(s): R19.7 - Diarrhea, unspecified (2) Abdominal pain: Code(s): R10.9 - Unspecified abdominal pain Qualifiers: Abdominal location: generalized Qualified Code(s): R10.84 - Generalized abdominal pain (3) Dysphagia: Code(s): R13.10 - Dysphagia, unspecified Qualifiers: Dysphagia type: unspecified Qualified Code(s): R13.10 - Dysphagia, unspecified (4) GERD (gastroesophageal reflux disease): Code(s): K21.9 - Gastro-esophageal reflux disease without esophagitis Qualifiers: Esophagitis presence: without esophagitis Qualified Code(s): K21.9 - Gastro-esophageal reflux disease without esophagitis (5) IBS (irritable bowel syndrome): Code(s): K58.9 - Irritable bowel syndrome without diarrhea Qualifiers: Irritable bowel syndrome type: with both diarrhea and constipation Qualified Code(s): K58.2 - Mixed irritable bowel syndrome (6) Hiatal hernia: Code(s): K44.9 - Diaphragmatic hernia without obstruction or gangrene (7) Schatzki's ring: Code(s): K22.2 - Esophageal obstruction Plan Continue Citrucel once or twice a day to help bulk stools. Will change PPI to Nexium. Patient can take sucralfate twice a day. Avoid dietary triggers and late night snacking. Staying upright for minimum 3 hours after meals discussed with patient. Patient will continue taking senna at bedtime to help her eliminate her bowels better. Please help patient schedule gastric emptying study, I will see her in 3 months, sooner on as needed basis. Patient is agreeable to this plan and verbalizes understanding of instructions. She was given the opportunity to ask questions and all questions answered. Thank you for allowing me to participate in her care Medications: New esomeprazole magnesium (Nexium) 40 mg PO DAILY 30 caps 5RF K21.9 - Gastro- esophageal reflux disease without esophagitis Changed From sucralfate 1 g PO BEDTIME 30 tabs 4RF R19.7 - Diarrhea, unspecified To sucralfate 1 g PO BID 60 tabs 4RF R19.7 - Diarrhea, unspecified Discontinued omeprazole Discontinued Reason: Doctor's Order 20 mg PO DAILY 90 caps 1RF K21.9 - Gastro-esophageal reflux disease without esophagitis Coding Level of Care Code Est Pt Level 4 (24411) Diagnoses Intermittent diarrhea R19.7 Generalized abdominal pain R10.84 Abdominal location: generalized Dysphagia, unspecified type R13.10 Dysphagia type: unspecified Gastroesophageal reflux disease without esophagitis K21.9 Esophagitis presence: without esophagitis Irritable bowel syndrome with both constipation and diarrhea K58.2 Irritable bowel syndrome type: with both diarrhea and constipation Hiatal hernia K44.9 Schatzki's ring K22.2 Time Spent (min) 35 Comment 20 minutes spent with patient and additional 15 minutes spent reviewing her records
[2023-10-29 13:54] VITALS: BP 118/75; PULSE 69; BMI 32.3
== END 2023-10-29 14:16 | disposition home or self-care (01) ==
PROVIDERS: PCP Internal Medicine; Visit Provider Nurse Practitioner Family
DX: R19.7 Diarrhea, unspecified (principal); R10.84 Generalized abdominal pain; R13.10 Dysphagia, unspecified; K21.9 Gastro-esophageal reflux disease without esophagitis; K58.2 Mixed irritable bowel syndrome; K44.9 Diaphragmatic hernia without obstruction or gangrene; K22.2 Esophageal obstruction
CPT/HCPCS: 99214

== ENCOUNTER → 2023-10-29 13:36 | Outpatient (BNVA) | payer OTHER, SELFPAY | PROVIDERS: PCP Internal Medicine; Visit Provider Nurse Practitioner Family | DX: K21.9 Gastro-esophageal reflux disease without esophagitis (principal); K58.2 Mixed irritable bowel syndrome; K44.9 Diaphragmatic hernia without obstruction or gangrene; K22.2 Esophageal obstruction; R19.7 Diarrhea, unspecified; R10.84 Generalized abdominal pain; R13.10 Dysphagia, unspecified | CPT/HCPCS: 99212 ==

== ENCOUNTER → 2023-11-30 08:24 | Outpatient (REF) | payer OTHER, SELFPAY ==
--- NOTE | ~2023-11-30 | NM_ITS ---
EXAMINATION: NM RADIONUCLIDE SOLID FOOD GASTRIC EMPTYING 4-HOUR STUDY CLINICAL INFORMATION: Early satiety. COMPARISON: None TECHNIQUE: A standard meal consisting of 4 oz of Egg Beaters brand tagged with 1000 microcuries Tc-99m Sulfur Colloid, 8 oz water and 2 slices of toast with jelly was administered orally to the patient. Images were obtained using a dual head gamma camera in the anterior and posterior projections over of the stomach immediately post ingestion and at hourly intervals up to 4 hours post ingestion. The anterior and posterior counts at each time interval were averaged using the geometric mean and expressed as percentage of the immediate post ingestion counts. FINDINGS: There is good visualization of activity in the stomach immediately post ingestion. As the study progresses, there is good clearance of activity from the stomach and visualization of progressively increasing small bowel activity. By the end of the study, there is almost no retention noted in the stomach. Retention in the stomach at each time interval was: 1 hour 69% (normal 37%-90%) 2 hours 19% (normal 30%-60%) 3 hours 2% 4 hours estimation was not performed since only 2% retention was noted at 3 hours interval. NM/NM gastric emptying study IMPRESSION: Normal 4-hour solid food gastric emptying study. For solid meal, rapid gastric emptying is less than 30% at 60 minutes. Delayed gastric emptying criteria is more than 60% remaining at 120 minutes or more than 10% at 240 minutes. The 4-hour value is the best discriminator of a normal or abnormal result). Gastric emptying study grading per JNMT Consensus Recommendations in 2008 (https://tech.snmjournals.org/content/36/1/44) Grade 1 (mild retention): 11-20% at 4h Grade 2 (moderate retention): 21-35% at 4h Grade 3 (severe retention): 36-50% at 4h Grade 4 (very severe retention): >50% retention at 4h
== END ==
LOC: HO.NUCMED 08:24
PROVIDERS: PCP Internal Medicine; Visit Provider Internal Medicine Gastroenterology
DX: R68.81 Early satiety (principal)
CPT/HCPCS: 78264; A9541

== ENCOUNTER 2023-12-18 09:36 | Outpatient (REF) | payer OTHER, SELFPAY | END 2023-12-18 09:37 | disposition home or self-care (01) | LOC: HO.MAMMO 09:36 | PROVIDERS: PCP Internal Medicine; Visit Provider Internal Medicine | DX: Z12.31 Encounter for screening mammogram for malignant neoplasm of breast (principal) | CPT/HCPCS: 77063; 77067 ==

== ENCOUNTER → 2023-12-18 10:00 | Outpatient (BNV) | payer OTHER, SELFPAY | PROVIDERS: PCP Internal Medicine; Visit Provider Radiology Diagnostic Radiology | DX: Z12.31 Encounter for screening mammogram for malignant neoplasm of breast (principal) | CPT/HCPCS: 77063; 77067 ==

== ENCOUNTER 2023-12-20 10:30 | Outpatient (AMB) | payer OTHER, SELFPAY ==
--- NOTE | 2023-12-20 10:33 | MHC.PC.OV ---
Vital Signs 12/20/23 10:41 Height 4 ft 11 in Weight 164 lb 2 oz BMI 33.1 BP 120/64 Blood Pressure Location Lt brachial Position Sitting Pulse 91 Pulse Source Pulse Oximeter Pulse Oximetry (%) 98 Oxygen Delivery Method Room Air Intake Visit Reasons: 4mth f/u Intake Note: Patient is here to follow up on lower back pain, migraine, Asthma. Db2 Dba Required: No Stubber: Not Required per policy Accompanied by: Self / Same As Patient Allergies mold Allergy (Severe, Verified 02/01/26 08:01) SOB, feels really sick lisinopril Allergy (Unknown, Verified 02/01/26 08:01) Cough No Known Drug Allergies Allergy (Unknown, Verified 02/01/26 08:01) none Tobacco use date assessed: 12/20/23 Dental Screening Dental Screen Date: 12/20/23 Did you have a dental visit in the last 12 months?: Yes Did you have a dental problem in the last 6 months where you did not have access to dental care?: No Was dental information given to patient?: Patient has dentist COUNTS INCLUDE 234 BEDS AT [facility] Medical History Positive PPD History of sciatica History of cholelithiasis History of active tuberculosis History of abnormal cervical Pap smear Surgical History Hx of colonoscopy History of esophagogastroduodenoscopy (EGD) Hx laparoscopic cholecystectomy History of bilateral tubal ligation Family History Father HTN (hypertension) CVD (cardiovascular disease) Diabetes mellitus Prostate cancer Mother Breast cancer Thyroid cancer CVD (cardiovascular disease) Brother Thyroid cancer Social History Housing: Apartment Alcohol intake: current Alcohol intake frequency: holidays/special occasions only Alcohol type: wine Patient Tobacco Use Status: Current everyday Tobacco user Tobacco use type: Cigarette Cigarette Packs Per Day: 0.25 Cigarettes Per Day: 3 e-Cigarette/Vaping Use: Never Used Second Hand Smoke Exposure: Yes service: No 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 2. Feeling down, depressed, or hopeless: not at all 3. Trouble falling or staying asleep, or sleeping too much: not at all 4. Feeling tired or having little energy: not at all 5. Poor appetite or overeating: not at all 6. Feeling bad about yourself - or that you are a failure or have let yourself or your family down: not at all 7. Trouble concentrating on things, such as reading the newspaper or watching television: not at all 8. Moving or speaking so slowly that other people could have noticed. Or the opposite - being so fidgety or restless that you have been moving around a lot more than usual: not at all Depression Screening Interpretation: Negative Depression Screening Done: Yes Source: Developed by Drs. Hari Lopez, Thania Pelayo, Koby Arreola and colleagues, with an educational kaitlin from [employer]. Thrive Questionnaire Date Thrive assessed: 08/18/23 I am a: Patient What is your living situation today?: I have a steady place to live Within the past 12 months, did the food you bought not last and you didn't have the money to get more?: Never true Within the past 12 months, did you worry whether your food would run out before you got money to buy more?: Never true Do you have trouble paying for medicines?: No Do you have trouble getting transportation to medical appointments?: No Do you have trouble paying your heating and electricity bill?: No Do you have trouble taking care of your child, family member or friend?: No Do you have trouble with day-to-day activities such as bathing, preparing meals, shopping, managing finances, etc.?: No Are you currently unemployed and looking for a job?: No Are you interested in more education?: No Currently or been in a relationship where the following occur: no concerns reported THRIVE Score: 0 AUDIT C Alcohol Use Questionnaire (AUDIT-C) 1. How often do you have a drink containing alcohol?: 2-4 times a month 2. How many drinks containing alcohol do you have on a typical day when you are drinking?: 1 or 2 3. How often do you have six or more drinks on one occasion?: Never Total Score: 2 LATRELL-7 AMB Questionnaire LATRELL-7 Date LATRELL - 7 assessed: 12/20/23 Feeling nervous, anxious, or on edge: 0 = Not at all Not being able to stop or control worryin = Not at all Worrying too much about different things: 0 = Not at all Trouble relaxin = Not at all Being so restless that it is hard to sit still: 0 = Not at all Becoming easily annoyed or irritable: 0 = Not at all Feeling afraid as if something awful might happen: 0 = Not at all Total LATRELL-7 score (0-4 normal; 5-9 mild; 10-14 moderate; 15-21 severe): 0 Source: Developed by Drs. Hari Lopez, Thania Pelayo, Koby Arreola and colleagues, with an educational kaitlin from [employer]. Physical exam (Primary Care) Vital Signs: Last Vital Signs Pulse 91 12/20/23 10:41 BP 120/64 12/20/23 10:41 Pulse Ox 98 12/20/23 10:41 Oxygen Delivery Method Room Air 12/20/23 10:41 BMI result Body Mass Index 33.1 Tobacco/Smoking Status: Tobacco use Status Tobacco use date assessed 12/20/23 12/20/23 10:46 Patient Tobacco Use Status Current everyday Tobacco 12/20/23 10:46 Tobacco use type Cigarette 12/20/23 10:46 e-Cigarette/Vaping Use Never Used 12/20/23 10:46 Depression Screening Interpretation: Negative Thrive Assessment: Date of Thrive Assessment Date Thrive assessed 08/18/23 12/20/23 10:46 Currently or been in a relationship where the following occur: no concerns reported Coding Level of Care Code Admin Sign Off/No Billing Diagnoses Dysphagia, unspecified type R13.10 Dysphagia type: unspecified Intermittent diarrhea R19.7 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
[2023-12-20 10:41] VITALS: BP 120/64; PULSE 91; O2SAT 98; BMI 33.1
== END 2023-12-20 11:33 | disposition home or self-care (01) ==
PROVIDERS: PCP Internal Medicine; Visit Provider Internal Medicine
DX: R13.10 Dysphagia, unspecified (principal); R19.7 Diarrhea, unspecified; M51.16 Intervertebral disc disorders with radiculopathy, lumbar region; R20.0 Anesthesia of skin; J45.20 Mild intermittent asthma, uncomplicated; G43.909 Migraine, unspecified, not intractable, without status migrainosus; J30.89 Other allergic rhinitis; L50.9 Urticaria, unspecified; F41.9 Anxiety disorder, unspecified; F17.200 Nicotine dependence, unspecified, uncomplicated; E66.9 Obesity, unspecified
CPT/HCPCS: 99499

== ENCOUNTER 2023-12-21 11:31 | Outpatient (REF) | payer OTHER, SELFPAY ==
--- NOTE | ~2023-12-21 | XR_ITS ---
EXAMINATION: XR CHEST CLINICAL INFORMATION: Atelectasis, bilateral perihilar infiltrates. Patient had COVID in June 2023. COMPARISON: Chest of 08/18/2023. TECHNIQUE: 2 views of the chest were obtained. FINDINGS: Lung volumes are low. There is no gross pneumothorax. Heart size is normal. No pleural effusion. Increased streaky opacities best appreciated in the retrocardiac region on the lateral view may represent subsegmental scar/atelectasis although an infectious/inflammatory process cannot be excluded. The right perihilar linear scar/atelectasis is identified on the exam of 08/20/2023 shows some improvement. No pleural effusion. Surgical clips in the upper abdomen. XR/XR chest 2V IMPRESSION: 1. Increased streaky opacities best appreciated in the retrocardiac region on the lateral view may represent subsegmental scar/atelectasis although an infectious/inflammatory process cannot be excluded. 2. The right perihilar linear scar/atelectasis is identified on the exam of 08/20/[address] scan of the chest could be considered for further evaluation.
== END 2023-12-21 11:32 | disposition home or self-care (01) ==
LOC: HO.XRAY 11:31
PROVIDERS: PCP Internal Medicine; Visit Provider Internal Medicine
DX: J98.11 Atelectasis (principal)
CPT/HCPCS: 71046

== ENCOUNTER 2023-12-31 13:39 | Outpatient (AMB) | payer OTHER, SELFPAY ==
[2023-12-31 13:42] VITALS: BP 125/82; PULSE 101; BMI 33.2
--- NOTE | 2023-12-31 13:42 | MHC.OFFVIS ---
Intake Vital Signs 12/31/23 13:42 Height 4 ft 11 in Weight 164 lb 7.437 oz BMI 33.2 BP 125/82 Blood Pressure Location Rt brachial Position Sitting Pulse 101 H Pulse Source Pulse Oximeter Intake Visit Reasons: 2 month follow up Intake Note: Patient here for 2m f/u IBS. Reports she does get constipation occassionally but states she has more issues with diarrhea than constipation. She states her GERD is doing better as long as so is aware of the foods that bother her. Pt states she will sometimes get nausea and vomiting but states it usually happens more in the morning time. Patient c/o: Allergies mold Allergy (Severe, Verified 12/31/23 13:43) SOB, feels really sick No Known Drug Allergies Allergy (Unknown, Verified 12/31/23 13:43) none HPI 2 month follow up HPI Details LAST VIVIT: Intermittent diarrhea Abdominal pain Dysphagia GERD (gastroesophageal reflux disease) IBS (irritable bowel syndrome) Hiatal hernia Schatzki's ring Plan Continue Citrucel once or twice a day to help bulk stools. Will change PPI to Nexium. Patient can take sucralfate twice a day. Avoid dietary triggers and late night snacking. Staying upright for minimum 3 hours after meals discussed with patient. Patient will continue taking senna at bedtime to help her eliminate her bowels better. Please help patient schedule gastric emptying study, I will see her in 3 months, sooner on as needed basis. Patient is agreeable to this plan and verbalizes understanding of instructions. She was given the opportunity to ask questions and all questions answered. ? Thank you for allowing me to participate in her care Medications New esomeprazole magnesium (Nexium) 40 mg PO DAILY 30 caps 5RF K21.9 Changed Changed From sucralfate 1 g PO BEDTIME 30 tabs 4RF R19.7 Changed To sucralfate 1 g PO BID 60 tabs 4RF R19.7 Discontinued omeprazole Discontinued Reason: Doctor's Order 20 mg PO DAILY 90 caps 1RF K21.9 TODAY'S VISIT Patient is here today for follow-up. Patient reports that she is doing little better than before. Taking Nexium in the morning and sucralfate at noon and at bedtime. Patient does report however occasional dyspepsia with nausea. Trouble swallowing at times and epigastric discomfort. Patient had upper endoscopy in September where she had pyloric stricture dilated as well as Schatzki ring. Patient reports with occasionally loose stools then constipation. Patient does report occasional blood in his stool. Patient reports that her brother was diagnosed with colon polyps and was told that he required to go for colonoscopies every year. Patient denies any issues with anesthesia in the past. No history of sleep apnea. Not on any anticoagulation medication. No cardiac or respiratory symptoms. [facility] Medical History Positive PPD Low back pain Anxiety Neck pain on left side Smoker Obesity (BMI 30-39.9) Allergic rhinitis Migraine Asthma Seasonal allergies History of sciatica History of cholelithiasis History of active tuberculosis History of abnormal cervical Pap smear Surgical History History of esophagogastroduodenoscopy (EGD) Hx laparoscopic cholecystectomy History of bilateral tubal ligation History of loop electrical excision procedure (LEEP) Family History Father HTN (hypertension) CVD (cardiovascular disease) Diabetes mellitus Prostate cancer Mother Breast cancer Thyroid cancer CVD (cardiovascular disease) Brother Thyroid cancer Social History Housing: Apartment Alcohol intake: current Alcohol intake frequency: a few times a week Alcohol type: wine Patient Tobacco Use Status: Current everyday Tobacco user Tobacco use type: Cigarette Cigarettes Per Day: 5 e-Cigarette/Vaping Use: Never Used Second Hand Smoke Exposure: Yes service: No 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 Gender identity: Female Cognitive needs: No Hearing needs: No Vision needs: Yes (Glass) Female Reproductive History Menstrual Age of Menarche: 16 Review of Systems Const Denies weight gain and Denies weight loss ENT Reports no additional complaints, Denies dysphagia and Denies odynophagia Card Reports no additional complaints Resp Reports no additional complaints GI Denies abdominal pain, Denies belching, Denies melena, Reports bloating, Denies change in bowel habits, Denies dysphagia, Denies excessive flatus, Denies dyspepsia, Reports heartburn, Denies diarrhea, Reports loose stools, Reports nausea, Denies odynophagia and Denies vomiting Reports no additional complaints Musc Reports no additional complaints Neuro Reports no additional complaints Psych Reports no additional complaints Endo Reports no additional complaints Physical Exam Vital Signs: Last Vital Signs Pulse 101 H 12/31/23 13:42 BP 125/82 12/31/23 13:42 BMI result Body Mass Index 33.2 Const General: healthy appearing, no acute distress and well developed Nutritional Appearance: obese Orientation/consciousness: patient oriented x3 Resp Effort & Inspection: normal respiratory effort, able to speak in complete sentences, no tracheal deviation and symmetric chest movement Auscultation: clear to auscultation bilaterally Cardio Rate: regular rate GI Inspection: Yes normal to inspection, No distended and Yes obesity Palpation (GI): Soft to palpation, not firm, nontender and No hepatosplenomegaly present Auscultation: normal bowel sounds General: Yes no CVA tenderness Back/Spine/Pelvis Back: no CVA tenderness Skin General skin exam: elasticity normal, turgor normal and dry skin Neuro General: patient oriented x3 Psych Appearance: grossly normal Mental Status: mental status grossly normal Assessment & Plan Assessment & Plan (1) Intermittent diarrhea: Code(s): R19.7 - Diarrhea, unspecified (2) Abdominal pain: Code(s): R10.9 - Unspecified abdominal pain Qualifiers: Abdominal location: generalized Qualified Code(s): R10.84 - Generalized abdominal pain (3) Dysphagia: Code(s): R13.10 - Dysphagia, unspecified Qualifiers: Dysphagia type: unspecified Qualified Code(s): R13.10 - Dysphagia, unspecified (4) GERD (gastroesophageal reflux disease): Code(s): K21.9 - Gastro-esophageal reflux disease without esophagitis Qualifiers: Esophagitis presence: esophagitis presence not specified Qualified Code(s): K21.9 - Gastro-esophageal reflux disease without esophagitis (5) IBS (irritable bowel syndrome): Code(s): K58.9 - Irritable bowel syndrome without diarrhea Qualifiers: Irritable bowel syndrome type: with both diarrhea and constipation Qualified Code(s): K58.2 - Mixed irritable bowel syndrome (6) Hiatal hernia: Code(s): K44.9 - Diaphragmatic hernia without obstruction or gangrene (7) Schatzki's ring: Code(s): K22.2 - Esophageal obstruction Plan Patient will continue Nexium and sucralfate. Continue avoiding dietary triggers in late night snacking. Patient continues to have epigastric discomfort feeling like she is having trouble swallowing. Will send her for upper endoscopy to see if she needs to be dilated again. Patient continues with irregular bowels and occasional rectal bleeding. Patient will be sent for colonoscopy. Patient reports that his brother was told he has polyps and he have to return for colonoscopies every year. What to expect before during and after the procedure discussed with patient. Clear liquid diet day before procedure as well as good bowel prep discussed with patient. Patient denies any cardiac or respiratory symptoms. No issues with anesthesia in the past. No history of sleep apnea. Not on any anticoagulation medication. Medications: New bisacodyl (Dulcolax (bisacodyl)) take 4 tabs at noon the day before your colonoscopy 20 mg (4 x 5 mg) PO ONCE 1 day 4 tabs 0RF Z12.11 - Encounter for screening for malignant neoplasm of colon polyethylene glycol 3350 (Miralax) As directed by gastroenterology department at [facility] 238 grams PO ONCE 238 grams 0RF Z12.11 - Encounter for screening for malignant neoplasm of colon Coding Level of Care Code Est Pt Level 4 (08986) Diagnoses Intermittent diarrhea R19.7 Generalized abdominal pain R10.84 Abdominal location: generalized Dysphagia, unspecified type R13.10 Dysphagia type: unspecified Gastroesophageal reflux disease, unspecified whether esophagitis present K21.9 Esophagitis presence: esophagitis presence not specified Irritable bowel syndrome with both constipation and diarrhea K58.2 Irritable bowel syndrome type: with both diarrhea and constipation Hiatal hernia K44.9 Schatzki's ring K22.2 Time Spent (min) 40 Comment 25 minutes spent with patient and additional 15 minutes spent reviewing her records
== END 2023-12-31 14:12 | disposition home or self-care (01) ==
PROVIDERS: PCP Internal Medicine; Visit Provider Nurse Practitioner Family
DX: R19.7 Diarrhea, unspecified (principal); R10.84 Generalized abdominal pain; R13.10 Dysphagia, unspecified; K21.9 Gastro-esophageal reflux disease without esophagitis; K58.2 Mixed irritable bowel syndrome; K44.9 Diaphragmatic hernia without obstruction or gangrene; K22.2 Esophageal obstruction
CPT/HCPCS: 99214

== ENCOUNTER → 2023-12-31 13:39 | Outpatient (BNVA) | payer OTHER, SELFPAY | PROVIDERS: PCP Internal Medicine; Visit Provider Nurse Practitioner Family | DX: K21.9 Gastro-esophageal reflux disease without esophagitis (principal); K58.2 Mixed irritable bowel syndrome; K44.9 Diaphragmatic hernia without obstruction or gangrene; K22.2 Esophageal obstruction; R19.7 Diarrhea, unspecified; R10.84 Generalized abdominal pain | CPT/HCPCS: 99212 ==

== ENCOUNTER 2024-03-30 09:32 | Day surgery (SDC) | payer OTHER, SELFPAY ==
[2024-03-28 15:55] VITALS: BMI 33.2
--- NOTE | 2024-03-29 10:45 | HO.ANESPROP2 ---
Documented by User: aHylee Mcclure NP 03/29/24 10:46 HPI - Anesthesia Eval Consult details Narrative: 43yo F for Upper Endoscopy and Colonoscopy PMFSH Active Problems Active Problems: All Active Problems Incomplete immunization status (Acute) History of positive PPD (Acute) Bilateral leg numbness (Acute) Lumbar disc herniation with radiculopathy (Acute) Blood in stool (Acute) Intermittent diarrhea (Acute) Abdominal pain (Acute) Dysphagia (Acute) Breast cancer screening by mammogram (Acute) Arthralgia (Acute) Family history of thyroid cancer (Acute) Hair thinning (Acute) Fatigue (Acute) Annual physical exam (Acute) Vaginal itching (Acute) Well woman exam with routine gynecological exam (Acute) Family history of breast cancer (Acute) Potential exposure to STD (Acute) Urticaria (Acute) Folliculitis (Acute) Migraine headache with aura (Acute) Low back pain (Acute) History of loop electrical excision procedure (LEEP) (Acute) Anxiety (Acute) Neck pain on left side (Acute) Smoker (Acute) Obesity (BMI 30-39.9) (Acute) Allergic rhinitis (Acute) Migraine (Acute) Asthma (Acute) Seasonal allergies (Acute) Past Medical History Medical History Positive PPD Low back pain Anxiety Neck pain on left side Smoker Obesity (BMI 30-39.9) Allergic rhinitis Migraine Asthma Seasonal allergies History of sciatica History of cholelithiasis History of active tuberculosis History of abnormal cervical Pap smear Family History Family History Father HTN (hypertension) CVD (cardiovascular disease) Diabetes mellitus Prostate cancer Mother Breast cancer Thyroid cancer CVD (cardiovascular disease) Brother Thyroid cancer Family history of problems with anesthesia: No Surgical History Surgical History History of esophagogastroduodenoscopy (EGD) Hx laparoscopic cholecystectomy History of bilateral tubal ligation History of loop electrical excision procedure (LEEP) History of Problems with Anesthesia: No Social History Social History Housing: Apartment Alcohol intake: current Alcohol intake frequency: holidays/special occasions only Alcohol type: wine Patient Tobacco Use Status: Former Tobacco user Tobacco use type: Cigarette Cigarettes Per Day: 5 e-Cigarette/Vaping Use: Never Used Second Hand Smoke Exposure: Yes Are you DNR?: No Advance Directives: No Advance Directives Information Provided: Yes Patient : No service: No 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 Gender identity: Female Cognitive needs: No Hearing needs: No Vision needs: Yes (Glass) Meds Allergies Allergy/AdvReac Type Severity Reaction Status Date / Time mold Allergy Severe SOB, feels Verified 12/31/23 13:43 really sick No Known Drug Allergies Allergy Unknown none Verified 12/31/23 13:43 Home Medications ?Medication ?Instructions ?Recorded ?Confirmed ?Last Taken ?Type magnesium citrate 100 mg tablet 200 mg PO DAILY 08/01/20 05/18/23 Unknown History riboflavin (vitamin B2) 250 mg 200 mg PO DAILY 08/01/20 05/18/23 Unknown History tablet,extended release latanoprost 0.005 % eye drops 1 drp ophthalmic (eye) BEDTIME 08/04/23 Unknown History Exam Height,Weight and Vital Signs: Height 4 ft 11 in Weight 74.6 kg Assessment and Plan Assessment Anesthesia Assessment: Chart Reviewed Final Anesthetic Review Family History of Problems with Anesthesia: No History of Problems with Anesthesia: No Documented by User: Mary Amor MD 03/30/24 10:51 HPI - Anesthesia Eval Consult details Narrative: 43yo F for Upper Endoscopy and Colonoscopy. EGD 09/2023 for abdominal pain. Now also diarrhea sometimes blood streaked. PMFSH Active Problems Active Problems: All Active Problems Incomplete immunization status (Acute) History of positive PPD (Acute) Bilateral leg numbness (Acute) Lumbar disc herniation with radiculopathy (Acute) Blood in stool (Acute) Intermittent diarrhea (Acute) Abdominal pain (Acute) Dysphagia (Acute) Breast cancer screening by mammogram (Acute) Arthralgia (Acute) Family history of thyroid cancer (Acute) Hair thinning (Acute) Fatigue (Acute) Annual physical exam (Acute) Vaginal itching (Acute) Well woman exam with routine gynecological exam (Acute) Family history of breast cancer (Acute) Potential exposure to STD (Acute) Urticaria (Acute) Folliculitis (Acute) Migraine headache with aura (Acute) Low back pain (Acute) History of loop electrical excision procedure (LEEP) (Acute) Anxiety (Acute) Neck pain on left side (Acute) Smoker (Acute)- Quit 3 months ago Obesity (BMI 30-39.9) (Acute) Allergic rhinitis (Acute) Migraine (Acute). Tylenol prn Asthma (Acute). Stable. No attacks for years Seasonal allergies (Acute) Past Medical History Medical History Positive PPD Low back pain Anxiety Neck pain on left side Smoker Obesity (BMI 30-39.9) Allergic rhinitis Migraine Asthma Seasonal allergies History of sciatica History of cholelithiasis History of active tuberculosis History of abnormal cervical Pap smear Family History Family History Father HTN (hypertension) CVD (cardiovascular disease) Diabetes mellitus Prostate cancer Mother Breast cancer Thyroid cancer CVD (cardiovascular disease) Brother Thyroid cancer Family history of problems with anesthesia: No Surgical History Surgical History History of esophagogastroduodenoscopy (EGD) Hx laparoscopic cholecystectomy History of bilateral tubal ligation History of loop electrical excision procedure (LEEP) History of Problems with Anesthesia: No Social History Social History Housing: Apartment Alcohol intake: current Alcohol intake frequency: holidays/special occasions only Alcohol type: wine Patient Tobacco Use Status: Former Tobacco user Tobacco use type: Cigarette Cigarettes Per Day: 5 e-Cigarette/Vaping Use: Never Used Second Hand Smoke Exposure: Yes Are you DNR?: No Advance Directives: No Advance Directives Information Provided: Yes Patient : No service: No 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 Gender identity: Female Cognitive needs: No Hearing needs: No Vision needs: Yes (Glass) Meds Allergies Allergy/AdvReac Type Severity Reaction Status Date / Time mold Allergy Severe SOB, feels Verified 12/31/23 13:43 really sick No Known Drug Allergies Allergy Unknown none Verified 12/31/23 13:43 Home Medications ?Medication ?Instructions ?Recorded ?Confirmed ?Last Taken ?Type magnesium citrate 100 mg tablet 200 mg PO DAILY 08/01/20 05/18/23 Unknown History riboflavin (vitamin B2) 250 mg 200 mg PO DAILY 08/01/20 05/18/23 Unknown History tablet,extended release latanoprost 0.005 % eye drops 1 drp ophthalmic (eye) BEDTIME 08/04/23 Unknown History Exam Height,Weight and Vital Signs: Height 4 ft 11 in Weight 74.6 kg Vital Signs Temp Pulse Resp BP Pulse Ox O2 Del Method 03/30/24 09:49 134/82 03/30/24 09:42 98.4 F 84 18 98 Room Air Airway Mallampati Class: II TM Dist: >3cm Neck ROM: Full Loose/Missing/Broken Teeth: Yes (Missing teeth back. Denies broken, loose, missing teeth) Heart: RRR Lungs: CTAB Assessment and Plan Assessment Anesthesia Assessment: Anesthesia Plan Discussed and Chart Reviewed Final Anesthetic Review Family History of Problems with Anesthesia: No History of Problems with Anesthesia: No NPO: Yes ASA Class: II Final Preanesthetic Review: No Changes in Pt Med Stat, Meds/Allgs Chart Reviewed, Consent Obtained/Reviewed and Anes Risks/Benef Reviewed Patient Risk: Intermediate Procedure Risk: Low Assessment/Block/Sedation in SS: Assess/Block/Sedation-SS Anesthetic Plan Anesthetic Plan: GA and TIVA Disposition: Standard PACU
[2024-03-30 09:42] VITALS: PULSE 84; RESP 18; TEMP 36.9; O2SAT 98; BMI 33.7
[2024-03-30 09:49] VITALS: BP 134/82
[2024-03-30] MEDS: Lactated Ringers 1,000 ML 100 ML IVCONT (09:53)
--- NOTE | 2024-03-30 10:39 | MHC.SHP ---
Pre-Procedural Eval Section A - 24 Hr Update-Section A only Date of Service: 03/30/24 Section B - Complete if H&P > 30 days Chief Complaint: IBS,gerd Details of Present Illness: dysphagia Relevant Family History (Specify if Yes): No Relevant Social History: None Present Medications: see Short Stay Collaborative assessment Medical History: Significant History (Positive PPD Low back pain Anxiety Neck pain on left side Smoker Obesity (BMI 30-39.9) Allergic rhinitis Migraine Asthma Seasonal allergies History of sciatica History of cholelithiasis History of active tuberculosis History of abnormal cervical Pap smear) History of Previous Operations: Relevant previous surgery/procedure and date(s) (History of esophagogastroduodenoscopy (EGD) Hx laparoscopic cholecystectomy History of bilateral tubal ligation History of loop electrical excision procedure (LEEP)) Allergies: Allergies Allergy/AdvReac Type Severity Reaction Status Date / Time mold Allergy Severe SOB, feels Verified 12/31/23 13:43 really sick No Known Drug Allergies Allergy Unknown none Verified 12/31/23 13:43 Review of Systems Sugical H&P ROS: Negative: Constitution, Cardiovascular, Respiratory, Neurological, Psychiatric, Hem-Onc, Allergic/Immunologic, Gastrointestinal, Genitourinary, Musculoskeletal, Integumentary, Endocrine and Eyes/Ears/Nose/Throat Exam Surgical H&P Exam: Normal: HEENT, Normal: Heart, Normal: Lungs, Normal: Extremities, Normal: Abdomen, Normal: Skin and Normal: Neurological Plan Diagnosis/Plan: Unchanged I have reviewed the history and physical and performed a pertinent physical examination on my patient. No changes have occurred unless specified. Time Spent With Patient Time: Total time managing care of this patient today ____ minutes.
--- NOTE | 2024-03-30 11:32 | P.OPN-COLO_ITS ---
Colonoscopy Operative Note Operative Note Date of Service: 03/30/24 Narrative: Operative Information Procedure Description: EGD, Colonoscopy Indication: abn bowel habit, rectal bleeding, and dysphagia Anesthesia: MAC FLEXIBLE TRANSORAL UPPER GASTROINTESTINAL ENDOSCOPY AND COLONOSCOPY PROCEDURE NOTE UPPER ENDOSCOPY Consent: Indications for the procedure and potential complications of bleeding, perforation, reaction to medications and missed diagnosis were discussed with the patient and informed consent was obtained. Instrument: Olympus GIF H 190 J mid size upper endoscope Monitoring: Vital signs and clinical assessment, continuous EKG monitoring, Pulse oximetry, Carbon Dioxide monitoring and blood pressure monitoring were done throughout the procedure. Procedure: The patient was placed in the left lateral decubitis position and pre-procedure medications were administered and a bite block was placed. The endoscope was inserted into the mouth and advanced under direct vision to the third part of duodenum. A careful inspection was made as the upper endoscope was withdrawn including a retroflexed examination of the proximal stomach; Findings and interventions are described below. Findings: Larynx:normal Esophagus: GE junction at 31 cm, diaphragm hiatus at 34 cm, consistent with 3 cm sliding hiatal hernia, schatzki ring noted, balloon dilation done at UES and LES to 20 mm, no tears seen--bx taken from GEJ, distal and proximal esophagus Stomach: Mild erythema. Biopsies were obtained. Grade 2 flap valve on retroflexed examination of the cardia. Duodenum: Normal bulb and descending duodenum, Intervention: Biopsies as noted above, balloon dilation COLONOSCOPY Instrument: Olympus variable stiffness pediatric scope 190L Colonoscopy Monitoring: Vital signs and clinical assessment, continuous EKG monitoring, Pulse oximetry, Carbon Dioxide monitoring and blood pressure monitoring were done throughout the procedure. Colon withdrawal time was 9 minutes. Procedure: The patient was placed in the left lateral decubitis position and pre-procedure medications were administered. After a digital rectal examination of the ano-rectum, the video colonoscope was inserted into the rectum and advanced through the colon to the cecum/TI. The colonoscope was slowly withdrawn in a retrograde panoramic fashion and the colon mucosa was carefully examined including a retroflexed view of the rectum. Findings and interventions are described below. Procedure Difficulty:moderate Findings: Terminal Ileum-normal, randombx taken Random bx taken from right and left colon and rectum in spearate jars Cecum:normal Right sided retroflexion- normal Ascending Colon: normal Transverse Colon -normal Descending Colon:normal Sigmoid Colon: normal Rectum: Retroflexion with small internal hemorrhoids, grade I, patchy erythema and nodularity bx taken Anorectum - normal Colon preparation: [place] Bowel Preparation Scale Right colon; 3 Transverse colon: 3 Left colon; 3 (0 = Unprepared colon segment with mucosa not seen due to solid stool that cannot be cleared. 1 = Portion of mucosa of the colon segment seen, but other areas of the colon segment not well seen due to staining, residual stool and/or opaque liquid. 2 = Minor amount of residual staining, small fragments of stool and/or opaque liquid, but mucosa of colon segment seen well. 3 = Entire mucosa of colon segment seen well with no residual staining, small fragments of stool or opaque liquid) Impression and Post Procedure Diagnosis: Endoscopy Findings: schatzki ring hiatal hernia gastritis Colonoscopy Findings: non specific erythema, rectum ? prep artifact internal hemorrhoids Plan: Await Pathology results Repeat Colonoscopy in 5 years deu to [facility] of colon polyps or earlier if clinically indicated High fiber diet leaflet avoid straining at stool, epsom salts and sitz bath, anusol supps or cream if h pylori pos then treat Above findings were reviewed with the patient and relevant handouts were provided if indicated.
[2024-03-30 11:43] VITALS: BP 107/72; PULSE 89; RESP 16; TEMP 36.4; O2SAT 99
[2024-03-30 11:58] VITALS: BP 118/73; PULSE 75; RESP 18; TEMP 36.6; O2SAT 95
== END 2024-03-30 13:00 | disposition home or self-care (01) ==
PROVIDERS: PCP Internal Medicine; Visit Provider Internal Medicine Gastroenterology
PROC: (CPT 45380; principal; 2024-03-30 12:20)
DX: K62.5 Hemorrhage of anus and rectum (principal); R19.4 Change in bowel habit; K64.8 Other hemorrhoids; K22.2 Esophageal obstruction; K29.70 Gastritis, unspecified, without bleeding; K44.9 Diaphragmatic hernia without obstruction or gangrene; K21.9 Gastro-esophageal reflux disease without esophagitis
CPT/HCPCS: 45380; 43249; 43239; 88305; 88313; 88342; C1726

== ENCOUNTER → 2024-03-30 09:32 | Outpatient (BNV) | payer OTHER, SELFPAY | PROVIDERS: PCP Internal Medicine; Visit Provider Internal Medicine Gastroenterology | DX: R19.4 Change in bowel habit (principal); K62.5 Hemorrhage of anus and rectum; K62.89 Other specified diseases of anus and rectum; K64.0 First degree hemorrhoids; K22.2 Esophageal obstruction; K29.70 Gastritis, unspecified, without bleeding | CPT/HCPCS: 43239; 43249; 45380 ==

== ENCOUNTER 2024-04-18 12:32 | Outpatient (AMB) | payer OTHER, SELFPAY ==
[2024-04-18 11:54] VITALS: BP 126/88; PULSE 96; O2SAT 99; BMI 33.3
--- NOTE | 2024-04-18 11:54 | A.OFFPC_ITS ---
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 Required: No Allergies mold Allergy (Severe, Verified 04/18/24 12:55) SOB, feels really sick No Known Drug Allergies Allergy (Unknown, Verified 04/18/24 12:55) none Medication List - Last Reconciled 04/18/24 by Samuel Villalta MD baclofen 10 mg PO TID PRN bupropion HCl XL 150 mg PO QAM 90 days esomeprazole magnesium (Nexium) 40 mg PO DAILY latanoprost 0.005% 1 drp ophthalmic (eye) BEDTIME loratadine (Allergy Relief (loratadine)) 10 mg PO DAILY PRN 90 days magnesium citrate 200 mg PO DAILY riboflavin (vitamin B2) ER 200 mg PO DAILY sennosides (Natural Senna Laxative) 8.6 mg PO BEDTIME sucralfate 1 g PO BID Ventolin HFA 90 mcg/actuation (albuterol sulfate) 2 puffs inhalation Q6H PRN 30 days NS Tobacco use date assessed: 12/20/23 Dental Screening Dental Screen Date: 12/20/23 HPI 4 month f/u- REPEAT PHQ9 HPI0 Details Patient comes in today for her follow up visit States that she currently feels okay Had EGD done back in September 2023 and was advised that her procedure came out okay other than some findings of gastritis States that her abdominal symptoms have improved a lot on her current Rx - is on Nexium 40 mg QD and Carafate 1 gm BID She also apparently had dilatation of the esophagus done, which relieved her swallowing symptoms and she's had no issues with her swallowing since She denies any headaches or dizziness Denies any chest pains, no SOB No nausea/vomiting and no change in bowel habits noted Adds that she's had some prominent veins on both of her lower legs for a couple of years now and has noticed that some of them appear to have gotten bigger recently and they are now painful at times - would like to see if she can be referred to a specialist to have these addressed Also needs her Bupropion XL Rx refilled [facility] Medical History Positive PPD Low back pain Anxiety Neck pain on left side Obesity (BMI 30-39.9) Allergic rhinitis Migraine Asthma Seasonal allergies History of sciatica History of cholelithiasis History of active tuberculosis History of abnormal cervical Pap smear Surgical History Hx of colonoscopy History of esophagogastroduodenoscopy (EGD) Hx laparoscopic cholecystectomy History of bilateral tubal ligation History of loop electrical excision procedure (LEEP) Family History Father HTN (hypertension) CVD (cardiovascular disease) Diabetes mellitus Prostate cancer Mother Breast cancer Thyroid cancer CVD (cardiovascular disease) Brother Thyroid cancer Social History Housing: Apartment Alcohol intake: current Alcohol intake frequency: holidays/special occasions only Alcohol type: wine Patient Tobacco Use Status: Former Tobacco user Tobacco use type: Cigarette Cigarettes Per Day: 5 e-Cigarette/Vaping Use: Never Used Second Hand Smoke Exposure: Yes service: No 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 1. Little interest or pleasure in doing things: not at all 2. Feeling down, depressed, or hopeless: not at all 3. Trouble falling or staying asleep, or sleeping too much: not at all 4. Feeling tired or having little energy: not at all 5. Poor appetite or overeating: not at all 6. Feeling bad about yourself - or that you are a failure or have let yourself or your family down: not at all 7. Trouble concentrating on things, such as reading the newspaper or watching television: not at all 8. Moving or speaking so slowly that other people could have noticed. Or the opposite - being so fidgety or restless that you have been moving around a lot more than usual: not at all 9. Thoughts that you would be better off or of hurting yourself in some way: not at all Total score: 0 Depression Screening Interpretation: Negative Depression Screening Done: Yes 36441 - PHQ-9 Billing: Yes Source: Developed by Drs. Hari Lopez, Thania Pelayo, Koby Arreola and colleagues, with an educational kaitlin from [employer]. Thrive Questionnaire Date Thrive assessed: 04/18/24 I am a: Patient What is your living situation today?: I have a steady place to live Within the past 12 months, did the food you bought not last and you didn't have the money to get more?: Never true Within the past 12 months, did you worry whether your food would run out before you got money to buy more?: Never true Do you have trouble paying for medicines?: No Do you have trouble getting transportation to medical appointments?: No Do you have trouble paying your heating and electricity bill?: No Do you have trouble taking care of your child, family member or friend?: No Do you have trouble with day-to-day activities such as bathing, preparing meals, shopping, managing finances, etc.?: No Are you currently unemployed and looking for a job?: No Are you interested in more education?: No Currently or been in a relationship where the following occur: no concerns reported THRIVE Score: 0 AUDIT C Alcohol Use Questionnaire (AUDIT-C) 1. How often do you have a drink containing alcohol?: 2-4 times a month 2. How many drinks containing alcohol do you have on a typical day when you are drinking?: 1 or 2 3. How often do you have six or more drinks on one occasion?: Never Total Score: 2 Score Reviewed/Action Taken: Yes LATRELL-7 AMB Questionnaire LATRELL-7 Date LATRELL - 7 assessed: 04/18/24 Feeling nervous, anxious, or on edge: 0 = Not at all Not being able to stop or control worryin = Not at all Worrying too much about different things: 0 = Not at all Trouble relaxin = Not at all Being so restless that it is hard to sit still: 0 = Not at all Becoming easily annoyed or irritable: 0 = Not at all Feeling afraid as if something awful might happen: 0 = Not at all Total LATRELL-7 score (0-4 normal; 5-9 mild; 10-14 moderate; 15-21 severe): 0 Source: Developed by Drs. Hari Lopez, Thania Pelayo, Koby Arreola and colleagues, with an educational kaitlin from [employer]. LATRELL-7 Assessment Billing LATRELL-7 Assessment Tool: LATRELL-7 Assessment 62188 Review of Systems Const Denies chills, Denies fatigue, Denies fever(s) and Denies headache(s) ENT Denies dysphagia (improved with dilatation), Denies dizziness, Denies otalgia, Denies headache(s), Denies neck pain, Denies odynophagia and Denies sore throat Card Denies chest pain, Denies palpitations and Denies dyspnea Resp Denies cough and Denies dyspnea GI Denies abdominal pain, Denies bloating, Denies constipation, Denies dysphagia (improved with dilatation), Denies heartburn, Reports diarrhea (at times, usually after eating), Denies nausea, Denies odynophagia and Denies vomiting Denies difficulty voiding, Denies nocturia, Denies dysuria and Denies urinary urgency Musc Details: (+) left-sided weakness - chronic Reports back pain (over the lower back - chronic), Denies neck pain and Reports numbness (over dorsum of both feet - constant ) Skin/Breast Denies rash Neuro Denies dizziness, Denies headache(s) and Reports numbness (over dorsum of both feet - constant ) Endo Denies fatigue and Denies palpitations Physical exam (Primary Care) Vital Signs: Last Vital Signs Pulse 96 04/18/24 11:54 BP 126/88 04/18/24 11:54 Pulse Ox 99 04/18/24 11:54 Oxygen Delivery Method Room Air 04/18/24 11:54 BMI result Body Mass Index 33.3 Tobacco/Smoking Status: Tobacco use Status Tobacco use date assessed 12/20/23 04/18/24 11:56 Patient Tobacco Use Status Former Tobacco user 04/18/24 13:08 Tobacco use type Cigarette 04/18/24 13:08 e-Cigarette/Vaping Use Never Used 04/18/24 13:08 PHQ-9: PHQ-9 Score PHQ-9: Total score 0 04/18/24 13:15 Depression Screening Interpretation: Negative Thrive Assessment: Date of Thrive Assessment Date Thrive assessed 04/18/24 04/18/24 11:56 Currently or been in a relationship where the following occur: no concerns reported Const General: no acute distress and alert HENMT Ears: TM's normal bilaterally and EAC's normal Throat: Yes posterior oropharynx normal and Yes tonsils normal (no TP congestion) Neck Neck: Yes no lymphadenopathy and Yes supple Thyroid: Thyroid normal Resp Auscultation: clear to auscultation bilaterally, no rales and no wheezes Cardio Rate: regular rate Rhythm: regular rhythm Heart sounds: no murmurs GI Palpation (GI): Soft to palpation and nontender Auscultation: normal bowel sounds General: Yes no CVA tenderness Back/Spine/Pelvis Back: no CVA tenderness Thoracic/Lumbar Spine: straight leg raise negative bilaterally and lumbar spinal tenderness Skin Rashes: no rashes Extrem General: Yes no clubbing, cyanosis or edema Assessment and Plan Assessment & Plan (1) Dysphagia: Code(s): R13.10 - Dysphagia, unspecified Qualifiers: Dysphagia type: unspecified Qualified Code(s): R13.10 - Dysphagia, unspecified Plan: This is mostly due to her sliding hiatal hernia and Schatzski's ring noted on her EGD Patient states that her swallowing issues have resolved with the balloon dilation that she received back in September 2023 H.pylori breath test done back in May 2023 came back negative Continue Esomeprazole 40 mg QD and Carafate 1 gm BID Follow up with GI as scheduled (2) Intermittent diarrhea: Code(s): R19.7 - Diarrhea, unspecified Plan: Possibly due to IBS; patient states that her diarrhea has subsided and have not recurred often lately EGD done in September 2023 revealed (+) hiatal hernia, Schatzki ring, duodenitis and possible gastroparesis Have advised patient again to continue to avoid taking any NSAIDs (3) Lumbar disc herniation with radiculopathy: Code(s): M51.16 - Intervertebral disc disorders with radiculopathy, lumbar region Plan: (+) left L3-L4 disc protrusion on MRI done back in 2014 Reinforced activity and weight-lifting restrictions Due to her chronic low back pain, persistent left-sided weakness and bilateral feet numbness, we have tried sending her for a repeat lumbar spine MRI for further evaluation but this was denied by insurance Repeat lumbar spine x-rays done at [facility] back in July 2023 came out normal (4) Bilateral leg numbness: Code(s): R20.0 - Anesthesia of skin Plan: MRI of the brain done back in 2016 came back normal EMG & NCV done in 04/2017 revealed (+) mild left ulnar neuropathy across the elbow, 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 and left mid to lower lumbar radiculopathy Repeat lumbar spine MRI requested recently for further evaluation was denied by her insurance Labs done a few months ago came back grossly normal May need to consider repeat EMG and NCV for further evaluation if her symptoms persist (5) Asthma: Code(s): J45.909 - Unspecified asthma, uncomplicated Qualifiers: Asthma complication type: uncomplicated Asthma persistence: intermittent Asthma severity: mild Qualified Code(s): J45.20 - Mild intermittent asthma, uncomplicated Plan: Stable - continue Albuterol HFA 2 puffs 4 times a day as needed (6) Migraine: Code(s): G43.909 - Migraine, unspecified, not intractable, without status migrainosus Qualifiers: Intractability: not intractable Migraine type: unspecified Status migrainosus presence: without status migrainosus Qualified Code(s): G43.909 - Migraine, unspecified, not intractable, without status migrainosus Plan: Continue OTC Excedrin Migraine PRN Follow up with neurology (sees Dr. Reza) as scheduled (7) Allergic rhinitis: Code(s): J30.9 - Allergic rhinitis, unspecified Qualifiers: Allergic rhinitis seasonality: non-seasonal Allergic rhinitis trigger: fungal spores Qualified Code(s): J30.89 - Other allergic rhinitis Plan: Continue Loratadine 10 mg QD PRN (8) Urticaria: Code(s): L50.9 - Urticaria, unspecified Plan: States that this has finally subsided; she was taking Loratadine QD PRN to help keep it in check when this was occurring She was referred back to allergy & immunology for further evaluation and management - states that she was eventually seen and had some testing done and was advised that she was allergic only to molds (9) Anxiety: Code(s): F41.9 - Anxiety disorder, unspecified Plan: Continue Bupropion XL 150 mg QD - Rx refilled (10) Obesity (BMI 30-39.9): Code(s): E66.9 - Obesity, unspecified Plan: Reinforced diet/exercise as tolerated/lose weight Plan To return in 4 months for her annual physical examination Will have patient get her follow up labs done in 4 months BEFORE she comes in for her annual PE Orders: Orders Complete Blood Count Auto Diff 4 Months D64.9 - Anemia, unspecified, Z00.00 - Encounter for general adult medical examination without abnormal findings Lipid Panel 4 Months E78.00 - Pure hypercholesterolemia, unspecified, Z00.00 - Encounter for general adult medical examination without abnormal findings TSH reflex Free T4 4 Months E78.00 - Pure hypercholesterolemia, unspecified, Z00.00 - Encounter for general adult medical examination without abnormal findings Comprehensive [place]. Panel Fast 4 Months E78.00 - Pure hypercholesterolemia, un specified, Z00.00 - Encounter for general adult medical examination without abnormal findings UA CC w/rflx Micro + Cult 4 Months R30.0 - Dysuria, Z00.00 - Encounter for gene ral adult medical examination without abnormal findings Vitamin D 25-OH Total 4 Months E55.9 - Vitamin D deficiency, unspecified, Z00.00 - Encounter for general adult medical examination without abnormal findings Referrals Vascular Surgery Referral I83.813 - Varicose veins of bilateral lower extremities with pain Medications: Refilled bupropion HCl XL 150 mg PO QAM 90 days 90 tabs 1RF Coding Level of Care Code Est Pt Level 4 (03719) Diagnoses Dysphagia, unspecified type R13.10 Dysphagia type: unspecified Intermittent diarrhea R19.7 Lumbar disc herniation with radiculopathy M51.16 Bilateral leg numbness R20.0 Mild intermittent asthma without complication J45.20 Asthma complication type: uncomplicated Asthma persistence: intermittent Asthma severity: mild Migraine without status migrainosus, not intractable, unspecified migraine type G43.909 Intractability: not intractable Migraine type: unspecified Status migrainosus presence: without status migrainosus Non-seasonal allergic rhinitis due to fungal spores J30.89 Allergic rhinitis seasonality: non-seasonal Allergic rhinitis trigger: fungal spores Urticaria L50.9 Anxiety F41.9 Obesity (BMI 30-39.9) E66.9 Additional Codes LATRELL-7 Assessment Billing - LATRELL-7 Assessment Tool: LATRELL-7 Assessment 61576 ([id number])
== END 2024-04-18 13:19 | disposition home or self-care (01) ==
PROVIDERS: PCP Internal Medicine; Visit Provider Internal Medicine
DX: R13.10 Dysphagia, unspecified (principal); E66.9 Obesity, unspecified; Z68.33 Body mass index [BMI] 33.0-33.9, adult; R19.7 Diarrhea, unspecified; M51.16 Intervertebral disc disorders with radiculopathy, lumbar region; R20.0 Anesthesia of skin; G43.909 Migraine, unspecified, not intractable, without status migrainosus; J45.20 Mild intermittent asthma, uncomplicated; J30.89 Other allergic rhinitis; L50.9 Urticaria, unspecified; F41.9 Anxiety disorder, unspecified
CPT/HCPCS: 99214

== ENCOUNTER 2024-04-26 11:20 | Outpatient (AMB) | payer MEDICAID, SELFPAY ==
[2024-04-26 11:33] VITALS: BP 130/72; BMI 34.1
--- NOTE | 2024-04-26 11:33 | A.OFFVIS_ITS ---
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 Document Improvement Specialist Required: No Document Improvement Specialist Services: Document Improvement Specialist Present Information Interpreted: clinical only Consumer Affairs Director: Consumer Affairs Director Present Allergies mold Allergy (Severe, Verified 04/26/24 11:33) SOB, feels really sick No Known Drug Allergies Allergy (Unknown, Verified 04/26/24 11:33) none Medication List - Last Reconciled 04/26/24 by Carmelita Mcdonnell CNM baclofen 10 mg PO TID PRN bupropion HCl XL 150 mg PO QAM 90 days esomeprazole magnesium (Nexium) 40 mg PO DAILY latanoprost 0.005% 1 drp ophthalmic (eye) BEDTIME loratadine (Allergy Relief (loratadine)) 10 mg PO DAILY PRN 90 days magnesium citrate 200 mg PO DAILY riboflavin (vitamin B2) ER 200 mg PO DAILY sennosides (Natural Senna Laxative) 8.6 mg PO BEDTIME sucralfate 1 g PO BID Ventolin HFA 90 mcg/actuation (albuterol sulfate) 2 puffs inhalation Q6H PRN 30 days NS Is last menstrual period known: Yes Last menstrual period: 04/11/24 Do you need a note to return to daycare/school/sports/work: No HPI HPI 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 She just signed up for new membership were renewed at [employer] in [place] and just went and exercised yesterday there and swam and that felt good she is hoping that helps. Her periods are regular she had a history of abnormal Pap smears but it was many years ago in her last 3 were normal. [facility] Medical History Positive PPD Low back pain Anxiety Neck pain on left side Obesity (BMI 30-39.9) Allergic rhinitis Migraine Asthma Seasonal allergies History of sciatica History of cholelithiasis History of active tuberculosis History of abnormal cervical Pap smear Surgical History Hx of colonoscopy History of esophagogastroduodenoscopy (EGD) Hx laparoscopic cholecystectomy History of bilateral tubal ligation History of loop electrical excision procedure (LEEP) Family History Father HTN (hypertension) CVD (cardiovascular disease) Diabetes mellitus Prostate cancer Mother Breast cancer Thyroid cancer CVD (cardiovascular disease) Brother Thyroid cancer Social History Housing: Apartment Alcohol intake: current Alcohol intake frequency: holidays/special occasions only Alcohol type: wine Patient Tobacco Use Status: Former Tobacco user Tobacco use type: Cigarette Cigarettes Per Day: 5 e-Cigarette/Vaping Use: Never Used Second Hand Smoke Exposure: Yes service: No 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 Gender identity: Female Cognitive needs: No Hearing needs: No Vision needs: Yes (Glass) Female Reproductive History Menstrual Age of Menarche: 16 Duration of menses: 3-5 days Date of last menstrual period: 04/11/24 control method: permanent sterilization Total pregnancies: 5 Full term: 3 Date of last pap smear: 04/09/23 (neg,previous pap, 2021,neg) History of abnormal pap smear: Yes (2010) Date of Mammogram: 12/18/23 (negative) History of abnormal mammogram: No Physical Exam Vital Signs: Last Vital Signs BP 130/72 04/26/24 11:33 BMI result Body Mass Index 34.1 Const General: healthy appearing, comfortable, no acute distress, well developed and alert Nutritional Appearance: average body habitus Orientation/consciousness: patient oriented x3 Limitations: no limitations HEENT Head: Yes normocephalic Neck Neck: Yes normal visual inspection Chest Chest palpation & inspection: normal inspection of the chest Breast/axilla inspection: normal inspection of the breasts and normal inspection of the axillae Breast/axilla palpation: normal palpation of the breasts and normal palpation of the axillae Resp Effort & Inspection: normal respiratory effort GI Inspection: Yes normal to inspection, No Abdominal wall edema and No distended Palpation (GI): Soft to palpation and nontender General: Yes bladder normal to palpation External Female Exam: normal external appearance and normal appearance of the urethra Speculum Exam - Vagina: normal appearance of the vagina, normal palpation and normal vaginal discharge Speculum Exam - Cervix: normal appearance of the cervix, normal palpation and nontender Bimanual exam- vagina & uterus: normal bimanual exam, normal palpation, uterine size normal, bladder normal to palpation, consistency normal, normal palpation, uterine mobility normal, uterine shape normal, No Cervical tenderness present, non-tender and no cervical motion tenderness Bimanual Exam- Adnexa, other: normal adnexae, no masses, normal and No adnexal tenderness Neuro General: patient oriented x3 Results Reviewed Results Reviewed: : Gladys Barcenas Age/Sex: 42/F Attending: Carmelita Mcdonnell CNM : 1980 Submitted by: Carmelita Mcdonnell CNM Copies to: Samuel Villalta MD MR #: [id number] Status: DEP REF Collected: 04/08/23 Location: [facility] Received: 04/09/23 Interpretation Satisfactory for evaluation. No endocervical cells seen. Negative for intraepithelial lesion or malignancy. HPV mRNA E6/E7: NOT DETECTED This assay detects E6/E7 viral messenger RNA (mRNA) from 14 high-risk HPV types (16, 18, 31, 33, 35, 39, 45, 51, 52, 56, 58, 59, 66, 68) HPV testing performed by [facility], [place], [place]. See reference laboratory pion of the EMR for entire report. Clinical Information LMP: 03/29/23 Previous PAP test: 02/03/22, Abnormal Material Received ThinPrep-Cervical Copies To Samuel Villalta MD [address] [place] [id number] Carmelita Mcdonnell CNM [address] [place] [address] [address] [place] [address] Electronically Signed By: RAKESH Gonzáles ([facility]) 05/03/23 4219 The Pap Test is a screening procedure with the inherent possibility of both false negative and false positive results. Results should be interpreted in the context of historic and current clinical findings. Reliability of the Pap Test is enhanced by performing the test on a regular repetitive basis. Patient: Gladys Barcenas Age/Sex: 42/F MR#: [id number] Page 1 of 1 Name: Gladys Barcenas Age/Sex: 41/F Attending: Carmelita Mcdonnell CNM : 1980 Submitted by: Carmelita Mcdonnell CNM Copies to: Samuel Villalta MD MR #: [id number] Status: DEP REF Collected: 02/02/22 Location: [facility]LAB Received: 02/03/22 Interpretation Satisfactory for evaluation. Mild inflammation. Blood. Negative for intraepithelial lesion or malignancy. HPV mRNA E6/E7: NOT DETECTED This assay detects E6/E7 viral messenger RNA (mRNA) from 14 high-risk HPV types (16, 18, 31, 33, 35, 39, 45, 51, 52, 56, 58, 59, 66, 68) HPV testing performed by [facility], [place], [place]. See reference laboratory pion of the EMR for entire report. Clinical Information LMP: 01/28/2022 Previous PAP test: 2019, WNL Other history: 2017, Abn. pap leep BEBE II Material Received ThinPrep-Cervical Copies To Samuel Villalta MD [address] [facility] [address] [place], [place] [id number] Carmelita Mcdonnell CNM [address] [place], [place] [address]Kaden Lopez [address] [place] [address] [phone] Electronically Signed By: RAKESH Gonzáles ([facility]) 02/12/22 1059 The Pap Test is a screening procedure with the inherent possibility of both false negative and false positive results. Results should be interpreted in the context of historic and current clinical findings. Reliability of the Pap Test is enhanced by performing the test on a Patient: Gladys Barcenas Age/Sex: 41/F MR#: [id number] Page 1 of 2 Name: Gladys Barcenas Age/Sex: 40/F Attending: Carmelita Mcdonnell CNM : 1980 Submitted by: Carmelita Mcdonnell CNM Copies to: Samuel Villalta MD MR #: [id number] Status: DEP REF Collected: 01/30/21 Location: [facility] Received: 01/31/21 Interpretation Satisfactory for evaluation. Negative for intraepithelial lesion or malignancy. Fungal organisms consistent with So species. HPV mRNA E6/E7: NOT DETECTED This assay detects E6/E7 viral messenger RNA (mRNA) from 14 high-risk HPV types (16, 18, 31, 33, 35, 39, 45, 51, 52, 56, 58, 59, 66, 68) HPV testing performed by [facility], [place], [place]. See reference laboratory portion of the EMR for entire report. Clinical Information LMP: 01/03/21 Previous PAP test: Unknown Date, abnormal Material Received ThinPrep Cervical Copies To Samuel Villalta MD [address] [place] [address] Lopez [address] [place] [address] [phone] Electronically Signed By: Alison Ferrari 02/07/21 8767 The Pap Test is a screening procedure with the inherent possibility of both false negative and false positive results. Results should be interpreted in the context of historic and current clinical findings. Re liability of the Pap Test is enhanced by performing the test on a regular repetitive basis. Patient: Gladys Barcenas Age/Sex: 40/F MR#: [id number] Page 1 of 1- Assessment & Plan Assessment & Plan (1) Breast cancer screening by mammogram: Comment: Patient states she had negative mammogram in November. Code(s): Z12.31 - Encounter for screening mammogram for malignant neoplasm of breast Category: Medical (2) Family history of thyroid cancer: Code(s): Z80.8 - Family history of malignant neoplasm of other organs or systems Category: Medical (3) Fatigue: Code(s): R53.83 - Other fatigue Category: Medical (4) Well woman exam with routine gynecological exam: Code(s): Z01.419 - Encounter for gynecological examination (general) (routine) without abnormal findings Category: Medical (5) History of loop electrical excision procedure (LEEP): Comment: x2, cx stenotic, pap done 01/30/21= neg, w neg hpv,, and 02/02/22= neg, neg hpv.; extremely difficult to visualize cervix though cervix palpable (smooth firm no palpable os) Pap done somewhat blindly..... 04/08/2023= negative with negative HPV. Code(s): Z98.890 - Other specified postprocedural states Category: Surgical (6) Intermittent diarrhea: Code(s): R19.7 - Diarrhea, unspecified Category: Medical (7) Encounter for screening examination for sexually transmitted disease: Code(s): Z11.3 - Encounter for screening for infections with a predominantly sexual mode of transmission Category: Medical Plan -----Discussed in this visit the following: healthy balanced diet, regular and consistent exercise, getting recommended health screens, doing the best she can for her particular health concerns, kegel exercises, pap smear screening and followup recommendations, mammography screening and SBE, normal changes in c ycles in her life stage--- . Reviewed that her last 3 Pap smears were all within normal limits. So she has not due for Pap smear today. Offered testing for STIs she was not concerned but accepted vaginal testing she and her got back together again 2 years ago and she does not have any recent concerns and believe she got tested since then but never check the results I did offer to place orders so that she can get with her fasting labs when she goes she will be getting her thyroid checked in fasting blood sugar among other things per her PCC. She has quit smoking and she has down to the smallest low-dose patch and she knows that she is probably gained weight since then. She does not know she is over weight enough to qualify for weight management programs. Discussed that perhaps it is best to check that out with her PCC and get her GI issues checked out 1st reviewed our mutual love of vegetables and healthy eating. She had good ideas for recipes with vegetables. She just renewed her membership at the gym and is trying to exercise more and work out. She does thinks she is getting enough sleep sometimes after working 3x12 hour shifts she is find she does need a day to recover from that. She is up-to-date on her mammograms. She voiced wisdom about many diagnoses being descriptive such as fibromyalgia, which she does not have the label for, and IBS, which she has been told she has. Orders: Orders Hepatitis B Surface Antigen Today Z11.3 - Encounter for screening for infections with a predominantly sexual mode of transmission Hepatitis C Antibody Today Z11.3 - Encounter for screening for infections with a predominantly sexual mode of transmission HIV Ab/Ag Today Z11.3 - Encounter for screening for infections with a predominantly sexual mode of transmission Syphilis Screen Today Z11.3 - Encounter for screening for infections with a predominantly sexual mode of transmission Coding Level of Care Code Est Pt Prev Care 40-64y([id number]) Diagnoses Breast cancer screening by mammogram Z12.31 Family history of thyroid cancer Z80.8 Fatigue R53.83 Well woman exam with routine gynecological exam Z01.419 History of loop electrical excision procedure (LEEP) Z98.890 Intermittent diarrhea R19.7 Encounter for screening examination for sexually transmitted disease Z11.3
== END 2024-04-26 11:59 | disposition home or self-care (01) ==
LOC: HO.HWSM 11:20
PROVIDERS: PCP Internal Medicine; Visit Provider Advanced Practice Midwife
DX: Z12.31 Encounter for screening mammogram for malignant neoplasm of breast (principal); Z80.8 Family history of malignant neoplasm of other organs or systems; R53.83 Other fatigue; Z01.419 Encounter for gynecological examination (general) (routine) without abnormal findings; Z98.890 Other specified postprocedural states; R19.7 Diarrhea, unspecified; Z11.3 Encounter for screening for infections with a predominantly sexual mode of transmission
CPT/HCPCS: 99396

== ENCOUNTER 2024-04-26 11:20 | Outpatient (REF) | payer MEDICAID, SELFPAY ==
[2024-04-27 05:54] LABS: CT PCR NOT DETECTED (Not Detect.); NG PCR NOT DETECTED (Not Detect.)
[2024-04-27 09:11] LABS: Bacterial Vaginosis PCR POSITIVE (Negative); Candida Group PCR NOT DETECTED (Not Detect); Candida glab krusei PCR NOT DETECTED (Not Detect); Trichomonas vaginalis PCR NOT DETECTED (Not Detect)
== END 2024-04-26 11:21 | disposition home or self-care (01) ==
LOC: HO.LAB 11:20
PROVIDERS: PCP Internal Medicine; Visit Provider Advanced Practice Midwife
DX: Z11.3 Encounter for screening for infections with a predominantly sexual mode of transmission (principal); N89.8 Other specified noninflammatory disorders of vagina; R13.10 Dysphagia, unspecified; R19.7 Diarrhea, unspecified; R10.84 Generalized abdominal pain; K21.9 Gastro-esophageal reflux disease without esophagitis; K58.0 Irritable bowel syndrome with diarrhea; K44.9 Diaphragmatic hernia without obstruction or gangrene; K22.2 Esophageal obstruction
CPT/HCPCS: 0352U; 87491; 87591; 99212; 99396

== ENCOUNTER 2024-04-26 14:48 | Outpatient (AMB) | payer MEDICAID, SELFPAY ==
--- NOTE | 2024-04-26 14:56 | MHC.OFFVIS ---
Vital Signs 04/26/24 14:57 Height 4 ft 11 in Weight 167 lb 15.876 oz BMI 33.9 BP 144/86 H Blood Pressure Location Lt brachial Position Sitting Pulse 82 Pulse Source Pulse Oximeter Pulse Oximetry (%) 98 Oxygen Delivery Method Room Air Intake Visit Reasons: s/p colo and egd Intake Note: Gladys presents in office today for a scheduled post double s/p CC; Pt reports that the procedure went well without any complications afterwards. Pt did experience minor sore throat for approximately 24 hours afterwards which quickly subsided. Hospital Insurance Representative Required: No Allergies mold Allergy (Severe, Verified 04/26/24 14:57) SOB, feels really sick No Known Drug Allergies Allergy (Unknown, Verified 04/26/24 14:57) none HPI HPI s/p colo and egd: Details: LAST VISIT: Intermittent diarrhea Abdominal pain Dysphagia GERD (gastroesophageal reflux disease) IBS (irritable bowel syndrome) Hiatal hernia Schatzki's ring Plan Patient will continue Nexium and sucralfate. Continue avoiding dietary triggers in late night snacking. Patient continues to have epigastric discomfort feeling like she is having trouble swallowing. Will send her for upper endoscopy to see if she needs to be dilated again. Patient continues with irregular bowels and occasional rectal bleeding. Patient will be sent for colonoscopy. Patient reports that his brother was told he has polyps and he have to return for colonoscopies every year. What to expect before during and after the procedure discussed with patient. Clear liquid diet day before procedure as well as good bowel prep discussed with patient. Patient denies any cardiac or respiratory symptoms. No issues with anesthesia in the past. No history of sleep apnea. Not on any anticoagulation medication. Medications New bisacodyl (Dulcolax (bisacodyl)) take 4 tabs at noon the day before your colonoscopy 20 mg (4 x 5 mg) PO ONCE 1 day 4 tabs 0RF Z12.11 polyethylene glycol 3350 (Miralax) As directed by gastroenterology department at [facility] 238 grams PO ONCE 238 grams 0RF Z12.11 UPPER ENDOSCOPY AND COLONOSCOPY Endoscopy Findings: Larynx:normal Esophagus: GE junction at 31 cm, diaphragm hiatus at 34 cm, consistent with 3 cm sliding hiatal hernia, schatzki ring noted, balloon dilation done at [facility] and LES to 20 mm, no tears seen--bx taken from GEJ, distal and proximal esophagus Stomach: Mild erythema. Biopsies were obtained. Grade 2 flap valve on retroflexed examination of the cardia. Duodenum: Normal bulb and descending duodenum, Intervention: Biopsies as noted above, balloon dilation Colonoscopy Findings: Terminal Ileum-normal, randombx taken Random bx taken from right and left colon and rectum in spearate jars Cecum:normal Right sided retroflexion- normal Ascending Colon: normal Transverse Colon -normal Descending Colon:normal Sigmoid Colon: normal Rectum: Retroflexion with small internal hemorrhoids, grade I, patchy erythema and nodularity bx taken Anorectum - normal Colon preparation: [place] Bowel Preparation Scale Right colon; 3 Transverse colon: 3 Left colon; 3 (0 = Unprepared colon segment with mucosa not seen due to solid stool that cannot be cleared. 1 = Portion of mucosa of the colon segment seen, but other areas of the colon segment not well seen due to staining, residual stool and/or opaque liquid. 2 = Minor amount of residual staining, small fragments of stool and/or opaque liquid, but mucosa of colon segment seen well. 3 = Entire mucosa of colon segment seen well with no residual staining, small fragments of stool or opaque liquid) Impression and Post Procedure Diagnosis: Endoscopy Findings: schatzki ring hiatal hernia gastritis Colonoscopy Findings: non specific erythema, rectum ? prep artifact internal hemorrhoids Plan: Await Pathology results Repeat Colonoscopy in 5 years deu to [facility] of colon polyps or earlier if clinically indicated High fiber diet leaflet avoid straining at stool, epsom salts and sitz bath, anusol supps or cream if h pylori pos then treat PATHOLOGY RESULTS Diagnosis A. Terminal ileum, biopsy: Ileal mucosa with no specific change. B. Colon, right, biopsy: Colonic mucosa with lymphoid aggregate and no specific change. C. Colon, left, biopsy: Colonic mucosa with lymphoid aggregates and no specific change. D. Colon, rectum, biopsy: Colonic mucosa with no specific change. E. Duodenum, biopsy: Duodenal mucosa with preserved villi and no specific change. F. Stomach, biopsy: Gastric antral mucosa with minimal chronic inactive gastritis; negative for H pylori, intestinal metaplasia and dysplasia. D. Esophagogastric junction, biopsy: Squamocolumnar mucosa with mild chronic inflammation; negative for intestinal metaplasia and dysplasia. H. Esophagus, distal, biopsy: Squamous mucosa with no specific change; no columnar mucosa present. I. Esophagus, proximal, biopsy: Squamous mucosa with no specific change; no columnar mucosa present. TODAY'S VISIT Patient is here today for follow-up and to discuss upper endoscopy and colonoscopy. Patient had no polyps, colonoscopy in 5 years due to family history of colon polyps. Mild chronic inflammation in patient's stomach and at the GE junction. No esophagitis. No Barretts. Patient reports that she has been feeling better. Is trying to eat better. States that Nexium has been helpful. Patient denies any epigastric pain. Denies any dyspepsia, dysphagia or odynophagia. Patient does admit to have occasional abdominal bloating and postprandial loose stools. Patient states that she is not taking sucralfate. Patient reports that she took that initially once and then she was not taking it. Patient does realize that she is post cholecystectomy and any time that she eats something that is high in fat she will have loose stools [facility] Medical History Positive PPD Low back pain Anxiety Neck pain on left side Obesity (BMI 30-39.9) Allergic rhinitis Migraine Asthma Seasonal allergies History of sciatica History of cholelithiasis History of active tuberculosis History of abnormal cervical Pap smear Surgical History Hx of colonoscopy History of esophagogastroduodenoscopy (EGD) Hx laparoscopic cholecystectomy History of bilateral tubal ligation History of loop electrical excision procedure (LEEP) Family History Father HTN (hypertension) CVD (cardiovascular disease) Diabetes mellitus Prostate cancer Mother Breast cancer Thyroid cancer CVD (cardiovascular disease) Brother Thyroid cancer Social History Housing: Apartment Alcohol intake: current Alcohol intake frequency: holidays/special occasions only Alcohol type: wine Patient Tobacco Use Status: Former Tobacco user Tobacco use type: Cigarette Cigarettes Per Day: 5 e-Cigarette/Vaping Use: Never Used Second Hand Smoke Exposure: Yes service: No 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 Gender identity: Female Cognitive needs: No Hearing needs: No Vision needs: Yes (Glass) Female Reproductive History Menstrual Age of Menarche: 16 Review of Systems Const Denies weight gain and Denies weight loss ENT Reports no additional complaints, Denies dysphagia and Denies odynophagia Card Reports no additional complaints Resp Reports no additional complaints GI Denies abdominal pain, Denies belching, Denies melena, Denies bloating, Denies change in bowel habits, Denies dysphagia, Denies excessive flatus, Denies dyspepsia, Reports heartburn, Denies diarrhea, Reports loose stools (Postprandially), Denies nausea, Denies odynophagia and Denies vomiting Musc Reports no additional complaints Neuro Reports no additional complaints Psych Reports no additional complaints Endo Reports no additional complaints Physical Exam Vital Signs: Last Vital Signs Pulse 82 04/26/24 14:57 BP 144/86 H 04/26/24 14:57 Pulse Ox 98 04/26/24 14:57 Oxygen Delivery Method Room Air 04/26/24 14:57 BMI result Body Mass Index 33.9 Assessment & Plan Assessment & Plan (1) Dysphagia: Code(s): R13.10 - Dysphagia, unspecified Category: Medical Qualifiers: Dysphagia type: unspecified Qualified Code(s): R13.10 - Dysphagia, unspecified (2) Intermittent diarrhea: Code(s): R19.7 - Diarrhea, unspecified Category: Medical (3) Abdominal pain: Code(s): R10.9 - Unspecified abdominal pain Category: Medical Qualifiers: Abdominal location: generalized Qualified Code(s): R10.84 - Generalized abdominal pain (4) GERD (gastroesophageal reflux disease): Code(s): K21.9 - Gastro-esophageal reflux disease without esophagitis Qualifiers: Esophagitis presence: esophagitis presence not specified Qualified Code(s): K21.9 - Gastro-esophageal reflux disease without esophagitis (5) IBS (irritable bowel syndrome): Code(s): K58.9 - Irritable bowel syndrome without diarrhea Qualifiers: Irritable bowel syndrome type: with diarrhea Qualified Code(s): K58.0 - Irritable bowel syndrome with diarrhea (6) Hiatal hernia: Code(s): K44.9 - Diaphragmatic hernia without obstruction or gangrene (7) Schatzki's ring: Code(s): K22.2 - Esophageal obstruction Plan Patient is not taking senna as she does have loose stools postprandially. Patient feels like she empties her bowels completely. Continue Nexium and avoiding dietary triggers and late night snacking. Staying upright for minimum 3 hours after meals discussed with patient. Continue low FODMAP diet. Avoid food high in fat even male or avocados that could also cause her postprandial loose stools. Patient can take sucralfate twice a day after lunch and after dinner. Colonoscopy endoscopy results discussed with patient. Colonoscopy in 5 years due to family history of colon polyps. Patient will return to the office in 4 months, sooner on as needed basis. She is agreeable to this plan and verbalizes understanding of instructions. She was given the opportunity to ask questions and all questions answered. Thank you for allowing me to participate in her care Medications: Discontinued sennosides (Natural Senna Laxative) Discontinued Reason: Duplicate 8.6 mg PO BEDTIME 90 tabs 3RF constipation K59.00 - Constipation, unspecified Coding Level of Care Code Est Pt Level 3 (51683) Diagnoses Dysphagia, unspecified type R13.10 Dysphagia type: unspecified Intermittent diarrhea R19.7 Generalized abdominal pain R10.84 Abdominal location: generalized Gastroesophageal reflux disease, unspecified whether esophagitis present K21.9 Esophagitis presence: esophagitis presence not specified Irritable bowel syndrome with diarrhea K58.0 Irritable bowel syndrome type: with diarrhea Hiatal hernia K44.9 Schatzki's ring K22.2 Time Spent (min) 30 Comment 20 minutes spent with patient and additional 10 minutes spent reviewing her records
[2024-04-26 14:57] VITALS: BP 144/86; PULSE 82; O2SAT 98; BMI 33.9
== END 2024-04-26 15:30 | disposition home or self-care (01) ==
PROVIDERS: PCP Internal Medicine; Visit Provider Nurse Practitioner Family
DX: R13.10 Dysphagia, unspecified (principal); R19.7 Diarrhea, unspecified; R10.84 Generalized abdominal pain; K21.9 Gastro-esophageal reflux disease without esophagitis; K58.0 Irritable bowel syndrome with diarrhea; K44.9 Diaphragmatic hernia without obstruction or gangrene; K22.2 Esophageal obstruction
CPT/HCPCS: 99213

== ENCOUNTER 2024-05-12 09:45 | Outpatient (REF) | payer OTHER, SELFPAY ==
[2024-05-13 03:31] LABS: Syphilis Screen Nonreactive (Nonreactive)
[2024-05-13 03:56] LABS: HBsAGNum1 0.25 S/CO (0.00-0.99); HIV AB/AG Nonreactive (Nonreactive); HIV Num 1 0.05 S/CO (0.00-0.99); Hepatitis B Surface Antigen Negative (Negative); ~HepC Num1 0.19 S/CO (0.00-0.79); ~Hepatitis C Antibody Nonreactive (Nonreactive)
== END 2024-05-12 09:46 | disposition home or self-care (01) ==
LOC: HO.LAB 09:45
PROVIDERS: PCP Internal Medicine; Visit Provider Advanced Practice Midwife
DX: Z11.3 Encounter for screening for infections with a predominantly sexual mode of transmission (principal)
CPT/HCPCS: 36415; 86780; 86803; 87340; 87389

== ENCOUNTER 2024-06-22 11:30 | Outpatient (AMB) | payer OTHER, SELFPAY ==
[2024-06-22 11:29] VITALS: BP 116/88; BMI 33.7
--- NOTE | 2024-06-22 11:29 | A.OFFVIS_ITS ---
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 Pt states both of her legs have been bothering her but states the right is worse. Pt states she wears support stockings but doesn't think it helps. Pt states she gets swelling especially when shes on her feet for longer periods of time. Pt states she does have itching in her legs as well. 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 Complaints include pain over varicosities, swelling of lower extremities, cramping, fatigue, and heaviness of the lower extremities. 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 It is noted more so in right leg. She notes a cluster in the posterior calf near the popliteal fossa Patient denies any previous venous surgery or injections. Patient denies any history of DVT/ PE. Patient denies any history of phlebitis. Trial of compression includes - [id number] They now present for vascular evaluation regarding their varicose veins. [facility] Medical History Positive PPD Low back pain Anxiety Neck pain on left side Obesity (BMI 30-39.9) Allergic rhinitis Migraine Asthma Seasonal allergies History of sciatica History of cholelithiasis History of active tuberculosis History of abnormal cervical Pap smear Surgical History Hx of colonoscopy History of esophagogastroduodenoscopy (EGD) Hx laparoscopic cholecystectomy History of bilateral tubal ligation History of loop electrical excision procedure (LEEP) Family History Father HTN (hypertension) CVD (cardiovascular disease) Diabetes mellitus Prostate cancer Mother Breast cancer Thyroid cancer CVD (cardiovascular disease) Brother Thyroid cancer Social History Housing: Apartment Alcohol intake: current Alcohol intake frequency: holidays/special occasions only Alcohol type: wine Patient Tobacco Use Status: Former Tobacco user Tobacco use type: Cigarette Cigarettes Per Day: 5 e-Cigarette/Vaping Use: Never Used Second Hand Smoke Exposure: Yes service: No 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 Gender identity: Female Cognitive needs: No Hearing needs: No Vision needs: Yes (Glass) Female Reproductive History Menstrual Age of Menarche: 16 Review of Systems Const Reports as per HPI ENT Reports no additional complaints Card Denies chest pain, Denies chest pain at rest and Denies chest pain with activity Resp Denies chest congestion and Denies cough GI Reports no additional complaints Musc Details: pain over varicosities, aching of lower extremities, swelling, cramping, heaviness and tiredness, itching Denies abnormal gait Skin/Breast Reports pruritus and Denies wounds Neuro Reports no additional complaints and Denies abnormal gait Psych Denies no additional complaints Physical Exam Vital Signs: Last Vital Signs BP 116/88 06/22/24 11:29 BMI result Body Mass Index 33.7 Const General: cooperative, healthy appearing and comfortable Orientation/consciousness: oriented to person, oriented to place and oriented to time Neck Carotids: no bruits Chest Chest palpation & inspection: normal inspection of the chest and normal palpation of entire chest wall Resp Effort & Inspection: normal respiratory effort and able to speak in complete sentences Cardio Rate: regular rate Heart sounds: S1 normal heart sound present and S2 normal heart sound present Peripheral pulses: Peripheral pulses 2+ throughout GI Inspection: Yes normal to inspection Skin Other: +2 edema, CEAP Classification C4 - skin color changes Ep - Etiology Primary As - superficial veins P - reflux General skin exam: dry skin Neuro General: oriented to person, oriented to place and oriented to time Extrem Right lower extremity: full ROM, normal capillary refill and edema Left lower extremity: full ROM, normal capillary refill and edema Psych Mental Status: mental status grossly normal Assessment & Plan Assessment & Plan (1) Varicose veins of right lower extremity with inflammation: Code(s): I83.11 - Varicose veins of right lower extremity with inflammation Category: Medical Plan: In short, the patient has evidence of venous insufficiency. I have discussed the pathophysiology with the patient. In addition I have provided informational material regarding venous disease to the patient. We have discussed conservative measures including compression, elevation, and exercise. I have also provided a handout regarding appropriate use of compression stockings and where to purchase good compression stockings as well. I have taken the liberty of ordering venous insufficiency testing with the patient. They will follow up with me after testing. The patient had an opportunity to ask questions regarding the treatment plan. All questions were answered. Imaging studies, laboratory studies and physical exam results were discussed and reviewed in detail. No major barriers to understanding were identified. The patient expressed understanding and agreement with the above treatment plan. The patient is aware they should contact our office by phone for worsening of the current condition or the appe arance of new symptoms. Thank you for allowing me to participate in the vascular care of this patient. If you have any questions or concerns regarding the treatment for the above condition please do not hesitate to contact me. The office telephone contact is [phone]. This note is constructed using voice recognition software. While every effort has been made to ensure accuracy, financial sales representative errors may have been included. Thank you for allowing me to participate in the care of your patient. Yours sincerely, Kemar Bernal MD, FACS, R.P.V.I. Orders: Orders US venous duplex LE BI 1 Week I83.11 - Varicose veins of right lower extremity with inflammation Coding Level of Care Code New Pt Level 4 (80420) Diagnoses Varicose veins of right lower extremity with inflammation I83.11
== END 2024-06-22 12:13 | disposition home or self-care (01) ==
PROVIDERS: PCP Internal Medicine; Visit Provider Surgery Vascular Surgery
DX: I83.11 Varicose veins of right lower extremity with inflammation (principal)
CPT/HCPCS: 99203

== ENCOUNTER → 2024-06-22 11:30 | Outpatient (BNVA) | payer OTHER, SELFPAY | PROVIDERS: PCP Internal Medicine; Visit Provider Surgery Vascular Surgery | DX: I83.11 Varicose veins of right lower extremity with inflammation (principal) | CPT/HCPCS: 99202 ==

== ENCOUNTER 2024-07-07 08:32 | Outpatient (REF) | payer OTHER, SELFPAY ==
--- NOTE | ~2024-07-07 | US_ITS ---
EXAMINATION: US LOWER EXTREMITY VENOUS (REFLUX EXAM), BILATERAL CLINICAL INDICATION: Varicose veins of right lower extremity with inflammation COMPARISON: None. TECHNIQUE: Color flow triplex imaging and compression Doppler was performed to evaluate both the deep and the superficial systems bilaterally. To evaluate the superficial system, the examination was performed in the upright position. Color-flow Doppler ultrasound and compression ultrasound were utilized. In addition, maneuvers were utilized to demonstrate reflux. FINDINGS: 1. DEEP VENOUS ULTRASOUND OF THE RIGHT LOWER EXTREMITY: Common Femoral Vein: Compressible, normal respiratory variation and augmented flow. Femoral Vein: Compressible, normal color flow and augmentation. Popliteal Vein: Compressible, normal augmentation. Deep Reflux: There is no evidence of reflux in the deep system in either the common femoral vein, superficial femoral or the popliteal vein. There is no evidence of a Sainz's cyst. 2. SUPERFICIAL ULTRASOUND WITH DOPPLER OF RIGHT LOWER EXTREMITY: GREAT SAPHENOUS VEIN: Saphenofemoral Junction: 0.4 cm; Reflux: 0 ms Proximal Thigh: 0.3 cm; Reflux: 0 ms Mid Thigh: 0.3 cm; Reflux: 0 ms Above Knee: 0.3 cm; Reflux: 0 ms At Knee: 0.2 cm; Reflux: 0 ms Below Knee: 0.2 cm; Reflux: 0 ms Mid Calf: 0.2 cm; Reflux: 0 ms Ankle: 0.2 cm; Reflux: 0 ms SMALL SAPHENOUS VEIN: Saphenopopliteal Junction: 0.2 cm; Reflux: 0 ms Proximal: 0.2 cm; Reflux: 0 ms Distal: 0.2 cm; Reflux: 0 ms VARICOSITIES: Location: Proximal thigh Size: 0.5; Reflux: 0 ms 3. DEEP VENOUS ULTRASOUND OF THE LEFT LOWER EXTREMITY: Common Femoral Vein: Compressible, normal respiratory variation and augmented flow. Femoral Vein: Compressible, normal color flow and augmentation. Popliteal Vein: Compressible, normal augmentation. Deep Reflux: There is no evidence of reflux in the deep system in either the common femoral vein, superficial femoral or the popliteal vein. There is no evidence of a Sainz's cyst. 4. SUPERFICIAL ULTRASOUND WITH DOPPLER OF LEFT LOWER EXTREMITY: GREAT SAPHENOUS VEIN: Saphenofemoral Junction: 1.0 cm; Reflux: 0 ms Proximal Thigh: 0.4 cm; Reflux: 0 ms Mid Thigh: 0.2 cm; Reflux: 0 ms Above Knee: 0.2 cm; Reflux: 0 ms At Knee: 0.3 cm; Reflux: 0 ms Below Knee: 0.2 cm; Reflux: 0 ms Mid Calf: 0.14 cm; Reflux: 0 ms Ankle: 0.15 cm; Reflux: 0 ms DUPLICATED LATERAL GREAT SAPHENOUS VEIN: Saphenofemoral Junction: 0.2 cm; Reflux: 0 ms Mid Thigh: 0.2 cm; Reflux: 0 ms SMALL SAPHENOUS VEIN: Saphenopopliteal Junction: 0.3 cm; Reflux: 0 ms Proximal: 0.3 cm; Reflux: 0 ms Distal: 0.2 cm; Reflux: 0 ms US/US venous duplex LE BI IMPRESSION: 1. No evidence of deep venous thrombosis or deep venous reflux. 2. No evidence of superficial venous reflux. 3. Small varicosity in the proximal right thigh. Electronically signed by: Ingrid Ely MD 07/11/2024 03:55 PM EDT RP Workstation: [id number]
[2024-07-07 09:39] LABS: MANUAL DIFF FLAG NO
[2024-07-07 09:56] LABS: Basophils Percent Auto 0.3 % (0-2); Eosinophils Absolute Auto 0.1 X10*3/uL (0.0-0.4); Eosinophils Percent Auto 1.1 % (0-4); Hematocrit 36.7 % (37.0-47.0); Hemoglobin 11.9 g/dl (12.0-16.0); Imm Gran Abs Auto 0.03 X10*3/uL (0.00-0.03); Imm Gran Pct Auto 0.4 % (0.0-0.4); Lymphocytes Percent Auto 29.1 % (20-40); Mean Corpuscular HGB Conc 32.4 g/dl (31.0-35.0); Mean Corpuscular Hemoglobin 25.9 pg (27.0-33.0); Monocytes Absolute Auto 0.4 X10*3/uL (0.1-1.2); Monocytes Percent Auto 5.5 % (2-11); Neutrophils Absolute Auto 4.4 x10*3/uL (2.0-8.3); Neutrophils Percent Auto 63.6 % (45-73); Platelet Count 269 X10*3/uL (160-400); Red Blood Count 4.59 X10*6/uL (4.20-5.50); Red Cell Distribution Width 14.8 % (11.0-16.0)
[2024-07-07 10:37] LABS: Alanine Aminotransferase 23 U/L (0-31); Albumin Level 4.3 g/dL (3.5-5.0); Alkaline Phosphatase 96 U/L (39-117); Anion Gap 12 (12-20); Aspartate Amino Transferase 17 U/L (5-31); Bilirubin Total 0.2 mg/dL (0.0-1.0); Blood Urea Nitrogen 12 mg/dL (9-16); Calcium 9.4 mg/dL (8.4-10.2); Carbon Dioxide 25 mmol/L (22-29); Chloride 107 mmol/L (96-108); Cholesterol 185 mg/dL (<200); Estimated Glomerular Filt Rate > 60; Glucose Fasting 98 mg/dL (60-99); HDL Cholesterol 52 mg/dL (>40); LDL Cholesterol Calculated 104 mg/dL (<100); Potassium 4.5 mmol/L (3.3-5.1); Sodium 139 mmol/L (135-145); Total Protein 7.6 g/dL (6.5-8.0); Triglycerides 147 mg/dL (<150)
[2024-07-07 10:42] LABS: Appearance Urine Clear; Color Urine Yellow; Glucose Urine UA Negative (Negative); Leukocyte Esterase Urine Negative (Negative); Nitrite Urine Negative (Negative); PH 5.5 (5.0-9.0); Specific Gravity - Urine 1.025 (1.005-1.025); Urine Blood Negative (Negative); Urine Ketones Trace mg/dL (Negative); Urine Protein Negative (Neg-Trace)
[2024-07-07 10:51] LABS: TSH reflex Free T4 1.03 uIU/mL (0.32-4.0); Vitamin D 25-OH Total 12.6 ng/mL (>30)
== END 2024-07-07 08:33 | disposition home or self-care (01) ==
LOC: HO.US 08:32
PROVIDERS: Absent Provider Internal Medicine; PCP Internal Medicine; Visit Provider Surgery Vascular Surgery
DX: Z00.00 Encounter for general adult medical examination without abnormal findings (principal); I83.11 Varicose veins of right lower extremity with inflammation; E78.00 Pure hypercholesterolemia, unspecified; R30.0 Dysuria; D64.9 Anemia, unspecified; E55.9 Vitamin D deficiency, unspecified
CPT/HCPCS: 36415; 80053; 80061; 81003; 82306; 84443; 85025; 93970

== ENCOUNTER 2024-08-01 10:51 | Outpatient (AMB) | payer OTHER, SELFPAY ==
[2024-08-01 10:53] VITALS: BMI 33.7
--- NOTE | 2024-08-01 10:53 | A.OFFVIS_ITS ---
Vital Signs 08/01/24 10:53 Height 4 ft 11 in Weight 167 lb BMI 33.7 Intake Visit Reasons: follow up 07/07/24 Intake Note: Follow up 07/07/24 for bilateral LE swelling. Pt states she gets itching in bilateral LE but Right LE worse than Left LE. Has tried compression stocking but states they cut in right where she has a VV and it's painful. LE swelling is worse when she is on her feet all day. 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 She states the pain is worse in the back of her knees, where the compression stockings push into the varicose veins. She states the right leg is slightly worse than the left. She denies any pain when she is not working. She has not been as active outside of work due to fatigue. She denies shortness of breath/diff breathing/CP. She denies any swelling of her lower extremities other than when she is working. [facility] Medical History Positive PPD Low back pain Anxiety Neck pain on left side Obesity (BMI 30-39.9) Allergic rhinitis Migraine Asthma Seasonal allergies History of sciatica History of cholelithiasis History of active tuberculosis History of abnormal cervical Pap smear Surgical History Hx of colonoscopy History of esophagogastroduodenoscopy (EGD) Hx laparoscopic cholecystectomy History of bilateral tubal ligation History of loop electrical excision procedure (LEEP) Family History Father HTN (hypertension) CVD (cardiovascular disease) Diabetes mellitus Prostate cancer Mother Breast cancer Thyroid cancer CVD (cardiovascular disease) Brother Thyroid cancer Social History Housing: Apartment Alcohol intake: current Alcohol intake frequency: holidays/special occasions only Alcohol type: wine Patient Tobacco Use Status: Former Tobacco user Tobacco use type: Cigarette Cigarettes Per Day: 5 e-Cigarette/Vaping Use: Never Used Second Hand Smoke Exposure: Yes service: No 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 Gender identity: Female Cognitive needs: No Hearing needs: No Vision needs: Yes (Glass) Female Reproductive History Menstrual Age of Menarche: 16 Review of Systems Const Reports as per HPI and Denies weakness ENT Reports Normal hearing present and Denies dizziness Card Reports as per HPI, Denies chest pain, Denies chest pain at rest, Denies chest pain with activity, Denies dyspnea and Denies dyspnea on exertion Resp Reports as per HPI, Denies cough, Denies dyspnea and Denies dyspnea on exertion GI Reports as per HPI, Denies abdominal pain, Denies nausea and Denies vomiting Musc Details: Aching/pain/fatigue of lower extremities, swelling Denies numbness Skin/Breast Reports as per HPI, Denies erythema and Denies wounds Neuro Reports Normal hearing present, Denies dizziness, Denies numbness, Denies Sensory deficit (Neuro) and Denies weakness Psych Reports no additional complaints Endo Reports no additional complaints Physical Exam Vital Signs: BMI result Body Mass Index 33.7 Const General: healthy appearing and no acute distress Orientation/consciousness: patient oriented x3 HEENT Head: Yes normal to inspection Ears: hearing grossly normal bilaterally Mouth: Normal oral and palatal mucosa present Resp Effort & Inspection: normal respiratory effort and able to speak in complete sentences Auscultation: clear to auscultation bilaterally Cardio Jugular venous distension: no JVD Rate: regular rate Rhythm: regular rhythm Heart sounds: S1 normal heart sound present and S2 normal heart sound present Bruits: no abdominal aortic bruits, no carotid bruits, no femoral bruits and no renal bruits Peripheral pulses: Peripheral pulses 2+ throughout GI Inspection: Yes normal to inspection Palpation (GI): No Abdominal aortic bruit present Skin Other: No edema noted CEAP: C - slight skin discoloration noted E - primary etiology A - superficial veins P- reflux General skin exam: no rashes or lesions noted Wounds: no wounds Hair: normal Neuro General: patient oriented x3 Cranial nerves: Yes CN's II-XII intact bilaterally and Yes Normal hearing present Cognition (Neuro): normal cognition Gait exam (Neuro): Normal gait present Motor exam (neuro): 5/5 motor strength present throughout Sensory Exam: No Sensory deficit (Neuro) Extrem General: Yes normal to inspection, Yes full ROM, Yes capillary refill normal and Yes normal gait Results Reviewed Results Reviewed: Reviewed results from [facility] from 07/07/24 Assessment & Plan Assessment & Plan (1) Varicose veins of right lower extremity with inflammation: Code(s): I83.11 - Varicose veins of right lower extremity with inflammation Category: Medical Plan: see below (2) Varicose veins of bilateral lower extremities with pain: Code(s): I83.813 - Varicose veins of bilateral lower extremities with pain Category: Medical Plan: see below Plan Gladys is presenting today for a follow up to [facility] as well as continuing bilateral lower extremity fatigue, heaviness, pain, and swelling. She has been w earing compression stockings daily, which she states helps with the pain and swelling but states has been pushing into the veins behind her knees, causing more pain. She has also been elevating her legs at night. She denies pain and swelling in her legs when she is not working. She states she needs to be more active and walk, but has not been, due to working more hours/fatigue. She denies any numbness/tingling in her legs/feet. She currently is an everyday smoker but has been using the patch and doing much better, we will encourage this. We reviewed the results of the [facility], which were negative. We discussed with the pt to continue with conservative measures, including the compression stockings, elevation, and walking. The pt is understanding and is in agreement to the plan. We discussed to obtain shorter compression stockings to avoid getting the pain in the back of her knees or using the ones she has and folding down the top portion of the stocking so it is not digging into her knee, this should help with that pain. We discussed that if the pain or swelling continues or worsens despite treatment with conservative measures, to reach back out to our office. Thank you for allowing me to participate in your care and please follow up if anything changes. Patient Instructions: Continue with compression stockings, elevation, and walking/increased activity outside of work. Follow up with us if anything changes. Coding Level of Care Code Established Pt Est Pt Level 4 (50229) Established Pt Complex EM visit Add On G2211 Patient Type Established Diagnoses Varicose veins of right lower extremity with inflammation I83.11 Varicose veins of bilateral lower extremities with pain I83.813 Time Spent (min) 25 Comment Reviewed [facility], reviewed patient education
== END 2024-08-01 11:10 | disposition home or self-care (01) ==
PROVIDERS: PCP Internal Medicine; Visit Provider Physician Assistant Surgical
DX: I83.11 Varicose veins of right lower extremity with inflammation (principal); I83.813 Varicose veins of bilateral lower extremities with pain
CPT/HCPCS: 99213; G2211

== ENCOUNTER → 2024-08-01 10:51 | Outpatient (BNVA) | payer OTHER, SELFPAY | PROVIDERS: PCP Internal Medicine; Visit Provider Surgery Vascular Surgery | DX: I83.11 Varicose veins of right lower extremity with inflammation (principal); I83.813 Varicose veins of bilateral lower extremities with pain | CPT/HCPCS: 99212 ==

== ENCOUNTER 2024-08-21 13:41 | Outpatient (AMB) | payer OTHER, SELFPAY ==
--- NOTE | 2024-08-21 13:45 | MHC.PC.OV ---
Vital Signs 08/21/24 13:46 Height 4 ft 11 in Weight 170 lb 2 oz BMI 34.4 BP 120/78 Blood Pressure Location Lt brachial Position Sitting Pulse 77 Pulse Source Pulse Oximeter Pulse Oximetry (%) 98 Oxygen Delivery Method Room Air Intake Visit Reasons: PE Intake Note: Patient is here today for a physical. Transmission Systems Operator Required: No Early Childhood Education Specialist: Not Required per policy Accompanied by: Self / Same As Patient Allergies mold Allergy (Severe, Verified 08/30/24 08:51) SOB, feels really sick No Known Drug Allergies Allergy (Unknown, Verified 08/30/24 08:51) none Medication List - Last Reconciled 08/21/24 by Samuel Villalta MD baclofen 10 mg PO TID PRN bupropion HCl XL 150 mg PO QAM 90 days esomeprazole magnesium 40 mg PO DAILY latanoprost 0.005% 1 drp ophthalmic (eye) BEDTIME loratadine (Allergy Relief (loratadine)) 10 mg PO DAILY PRN 90 days nicotine 1 patch transdermal DAILY riboflavin (vitamin B2) ER 200 mg PO DAILY sucralfate 1 g PO BID Ventolin HFA 90 mcg/actuation (albuterol sulfate) 2 puffs inhalation Q6H PRN 30 days NS Tobacco use date assessed: 08/21/24 Dental Screening Dental Screen Date: 12/20/23 HPI PE HPI Details Patient comes in today for her annual physical examination States that she feels okay She denies any headaches or dizziness Denies any chest pains, no increased SOB but reports that she has been experiencing some flare ups of her asthma symptoms often lately No nausea/vomiting, no abdominal pain No change in bowel habits noted Denies any acute urinary symptoms Patient also admits that she went back to smoking again a few months ago and would like to get a prescription again for some nicotine patches to help her quit She had her follow up labs done last month - to discuss her results She had her annual mammogram done in November 2023 and her annual gynecology exam and pap smear in April 2024 [facility] Medical History (Updated 01/08/25 @ 00:43 by Samuel Villalta MD) Vitamin D deficiency Positive PPD Low back pain Anxiety Neck pain on left side Obesity (BMI 30-39.9) Allergic rhinitis Migraine Asthma Seasonal allergies History of sciatica History of cholelithiasis History of active tuberculosis History of abnormal cervical Pap smear Surgical History Hx of colonoscopy History of esophagogastroduodenoscopy (EGD) Hx laparoscopic cholecystectomy History of bilateral tubal ligation History of loop electrical excision procedure (LEEP) Family History Father HTN (hypertension) CVD (cardiovascular disease) Diabetes mellitus Prostate cancer Mother Breast cancer Thyroid cancer CVD (cardiovascular disease) Brother Thyroid cancer Social History Housing: Apartment Alcohol intake: current Alcohol intake frequency: holidays/special occasions only Alcohol type: wine Patient Tobacco Use Status: Current everyday Tobacco user Tobacco use type: Cigarette Cigarette Packs Per Day: 0.25 Cigarettes Per Day: 3 e-Cigarette/Vaping Use: Never Used Second Hand Smoke Exposure: Yes service: No 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 1. Little interest or pleasure in doing things: nearly every day 2. Feeling down, depressed, or hopeless: not at all 3. Trouble falling or staying asleep, or sleeping too much: nearly every day 4. Feeling tired or having little energy: nearly every day 5. Poor appetite or overeating: not at all 6. Feeling bad about yourself - or that you are a failure or have let yourself or your family down: not at all 7. Trouble concentrating on things, such as reading the newspaper or watching television: nearly every day 8. Moving or speaking so slowly that other people could have noticed. Or the opposite - being so fidgety or restless that you have been moving around a lot more than usual: not at all 9. Thoughts that you would be better off or of hurting yourself in some way: not at all Total score: 12 Depression Screening Interpretation: Positive Depression Screening Follow-up: Existing condition and In treatment Depression Screening Done: Yes [id number] - PHQ-9 Billing: Yes Source: Developed by Thania HowardW. Pierce, Koby Arreola and colleagues, with an educational kaitlin from [employer]. Thrive Questionnaire Date Thrive assessed: 04/18/24 I am a: Patient What is your living situation today?: I have a steady place to live Within the past 12 months, did the food you bought not last and you didn't have the money to get more?: Never true Within the past 12 months, did you worry whether your food would run out before you got money to buy more?: Never true Do you have trouble paying for medicines?: No Do you have trouble getting transportation to medical appointments?: No Do you have trouble paying your heating and electricity bill?: No Do you have trouble taking care of your child, family member or friend?: No Do you have trouble with day-to-day activities such as bathing, preparing meals, shopping, managing finances, etc.?: No Are you currently unemployed and looking for a job?: No Are you interested in more education?: Yes Please select the resources that you would like help with: None Currently or been in a relationship where the following occur: No concerns reported THRIVE Score: 0 AUDIT C Alcohol Use Questionnaire (AUDIT-C) 1. How often do you have a drink containing alcohol?: 2-3 times a week 2. How many drinks containing alcohol do you have on a typical day when you are drinking?: 5 or 6 3. How often do you have six or more drinks on one occasion?: Weekly Total Score: 8 Score Reviewed/Action Taken: Yes LATRELL-7 AMB Questionnaire LATRELL-7 Date LATRELL - 7 assessed: 08/21/24 Feeling nervous, anxious, or on edge: 1 = Several days Not being able to stop or control worryin = Several days Worrying too much about different things: 0 = Not at all Trouble relaxin = Several days Being so restless that it is hard to sit still: 0 = Not at all Becoming easily annoyed or irritable: 1 = Several days Feeling afraid as if something awful might happen: 0 = Not at all Total LATRELL-7 score (0-4 normal; 5-9 mild; 10-14 moderate; 15-21 severe): 4 Source: Developed by Thania Howard Kurt Kroenke and colleagues, with an educational kaitlin from [employer]. Review of Systems Const Denies chills, Denies fatigue, Denies fever(s), Denies headache(s) and Denies malaise Eyes Denies blurry vision, Denies change in vision, Denies irritation and Denies itchy eyes ENT Denies dysphagia, Denies dizziness, Denies otalgia, Denies headache(s), Denies nasal congestion, Denies neck pain, Denies odynophagia, Denies sinus pain and Denies sore throat Card Denies chest pain, Denies rapid heart rate, Denies irregular heart rhythm, Denies palpitations and Reports dyspnea on exertion (mild, on and off lately) Resp Denies chest congestion (chest feels tight at times lately), Denies cough, Reports dyspnea on exertion (mild, on and off lately) and Reports wheezing (occasionally over the past few weeks) GI Denies abdominal pain, Denies bloating, Denies constipation, Denies dysphagia, Denies heartburn, Denies diarrhea, Denies nausea, Denies odynophagia and Denies vomiting Denies hematuria, Denies urinary frequency, Denies dysuria, Denies urinary incontinence and Denies urinary urgency Musc Reports back pain (on and off, chronic), Denies arthralgias, Denies joint swelling, Denies muscle weakness and Denies neck pain Skin/Breast Denies breast pain, Denies breast mass, Denies change in pigmentation, Denies lesions, Denies rash and Denies unusual bruising Neuro Denies dizziness, Denies headache(s) and Reports paresthesias (persistent numbness in both lower extremities for years) Psych Reports anxiety (at times) and Denies depression Endo Denies fatigue and Denies palpitations Geovany/Lymph Denies easy bruising Aller/Immun Denies itchy eyes and Reports wheezing (occasionally over the past few weeks) Physical exam (Primary Care) Vital Signs: Last Vital Signs Pulse 77 08/21/24 13:46 BP 120/78 08/21/24 13:46 Pulse Ox 98 08/21/24 13:46 Oxygen Delivery Method Room Air 08/21/24 13:46 BMI result Body Mass Index 34.4 Tobacco/Smoking Status: Tobacco use Status Tobacco use date assessed 08/21/24 08/21/24 13:52 Patient Tobacco Use Status Current everyday Tobacco 08/21/24 13:52 Tobacco use type Cigarette 08/21/24 13:52 e-Cigarette/Vaping Use Never Used 08/21/24 13:52 PHQ-9: PHQ-9 Score PHQ-9: Total score 12 08/21/24 14:26 Depression Screening Interpretation: Positive Depression Screening Follow-up: Existing condition and In treatment Thrive Assessment: Date of Thrive Assessment Date Thrive assessed 04/18/24 08/21/24 13:52 Currently or been in a relationship where the following occur: No concerns reported Const General: no acute distress, alert and awake Orientation/consciousness: patient oriented x3 HENMT Head: Yes normocephalic and Yes atraumatic Ears: external ears normal, TM's normal bilaterally and EAC's normal General nose exam: No nasal discharge present Face and sinus: Yes normal facial exam and Yes sinuses nontender Teeth and gingiva: dentition normal Throat: Yes posterior oropharynx normal and Yes tonsils normal (no TP congestion) Eyes Eyelids: Yes eyelids normal Conjunctivae: conjunctivae normal Pupils: Equal, round and reactive pupils present EOM: EOMs intact bilaterally Neck Neck: Yes supple and No lymphadenopathy Thyroid: Thyroid normal Resp Auscultation: clear to auscultation bilaterally, no rales, wheezes (occasional faint expiratory wheezing on forced expiration/coughing) and diminished lung sounds (slightly) bilateral Cardio Rate: regular rate Rhythm: regular rhythm Heart sounds: no murmurs GI Palpation (GI): Soft to palpation, nontender and No hepatosplenomegaly present Auscultation: normal bowel sounds General: Yes no CVA tenderness Back/Spine/Pelvis Back: no CVA tenderness Thoracic/Lumbar Spine: lumbar spinal tenderness Skin Lesions: no lesions Rashes: no rashes Neuro General: patient oriented x3, moves all extremities, no focal motor deficits and CN's II-XI intact bilaterally Cranial nerves: Yes Equal, round and reactive pupils present Cognition (Neuro): normal cognition Gait exam (Neuro): Normal gait present Extrem General: Yes no clubbing, cyanosis or edema Results Reviewed Results Reviewed: Laboratory Tests 07/07/24 09:38 WBC 7.0 Hgb 11.9 L Hct 36.7 L Plt Count 269 Sodium 139 Potassium 4.5 Creatinine 0.81 Estimated GFR > 60 Fasting Glucose 98 Calcium 9.4 AST 17 ALT 23 Triglycerides 147 Cholesterol 185 LDL Cholesterol, Calc 104 H HDL Cholesterol 52 25-OH Vitamin D Total 12.6 L TSH 1.03 Ur Specific [place] 1.025 Urine Protein Negative Urine Glucose (UA) Negative Urine Blood Negative Urine Nitrite Negative Ur Leukocyte Esterase Negative Coding Level of Care Code Est Pt Prev Care 40-64y(89829) Diagnoses Annual physical exam Z00.00 Vitamin D deficiency E55.9 Mild intermittent asthma without complication J45.20 Asthma severity: mild Asthma persistence: intermittent Asthma complication type: uncomplicated Migraine without status migrainosus, not intractable, unspecified migraine type G43.909 Migraine type: unspecified Status migrainosus presence: without status migrainosus Intractability: not intractable Non-seasonal allergic rhinitis due to fungal spores J30.89 Allergic rhinitis trigger: fungal spores Allergic rhinitis seasonality: non-seasonal Dysphagia, unspecified type R13.10 Dysphagia type: unspecified Lumbar disc herniation with radiculopathy M51.16 Bilateral leg numbness R20.0 Anxiety F41.9 Smoker F17.200 Obesity (BMI 30-39.9) E66.9 Assessment & Plan Assessment & Plan (1) Annual physical exam: Code(s): Z00.00 - Encounter for general adult medical examination without abnormal findings Category: Medical Plan: Results of her labs done last month reviewed and discussed with patient She is up-to-date with cancer screenings - she had her annual mammogram done in November 2023 and her annual gynecology exam and pap smear in April 2024 (2) Vitamin D deficiency: Code(s): E55.9 - Vitamin D deficiency, unspecified Category: Medical Plan: Patient is advised that her Vitamin D level was very low on recent labs Will go ahead and start her on Vitamin D3 2000 units QD (3) Asthma: Code(s): J45.909 - Unspecified asthma, uncomplicated Category: Medical Qualifiers: Asthma severity: mild Asthma persistence: intermittent Asthma complication type: uncomplicated Qualified Code(s): J45.20 - Mild intermittent asthma, uncomplicated Plan: Continue Albuterol HFA 1 to 2 inhalations Q 6 hours PRN As patient has been experiencing recurrent flare ups of her asthma symptoms lately, will go ahead and start her on a controller - Pulmicort Flexhaler 90 mch 1 inhalation BID Will also send her for PFTs for further evaluation (4) Migraine: Code(s): G43.909 - Migraine, unspecified, not intractable, without status migrainosus Category: Medical Qualifiers: Migraine type: unspecified Status migrainosus presence: without status migrainosus Intractability: not intractable Qualified Code(s): G43.909 - Migraine, unspecified, not intractable, without status migrainosus Plan: Stable/controlled Continue Vitamin B2 ER 200 mg QD and OTC Excedrin Migraine PRN Follow up with neurology (Dr. 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 in September 2023 Patient states that her swallowing issues have resolved with the balloon dilation that she received back in September 2023 during her EGD H.pylori breath test done back in May 2023 came back negative Continue Esomeprazole 40 mg QD and Carafate 1 gm BID Follow up with GI as scheduled (7) Lumbar disc herniation with radiculopathy: Code(s): M51.16 - Intervertebral disc disorders with radiculopathy, lumbar region Category: Medical Plan: (+) left L3-L4 disc protrusion seen on lumbar spine MRI done back in 2014 Reinforced activity and weight-lifting restrictions Due to her chronic low back pain, persistent left-sided weakness and bilateral feet numbness, we have tried sending her for a repeat lumbar spine MRI last year for further evaluation but this was denied by her insurance [place] [facility] [place] came out normal Continue Baclofen 10 mg TID PRN Have advised patient that if her low back pain persists or gets worse, can consider referring her to pain management (8) Bilateral leg numbness: Code(s): R20.0 - Anesthesia of skin Category: Medical Plan: MRI of the brain done back in 2016 came back normal EMG & NCV done in 04/2017 revealed (+) mild left ulnar neuropathy across the elbow, 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 and left mid to lower lumbar radiculopathy Repeat lumbar spine MRI requested last year for further evaluation was denied by her insurance Her labs done last month revealed no findings pertinent to these symptoms May need to consider repeat EMG and NCV for further evaluation if her symptoms persist or get worse (9) Anxiety: Code(s): F41.9 - Anxiety disorder, unspecified Category: Medical Plan: Continue Bupropion XL 150 mg QD (10) Smoker: Code(s): F17.200 - Nicotine dependence, unspecified, uncomplicated Category: Social Hx Plan: Patient is again counseled on smoking cessation Per request, we will start her back on nicotine patches to help her quit smoking (11) Obesity (BMI 30-39.9): Code(s): E66.9 - Obesity, unspecified Category: Medical Plan: Reinforced diet/exercise as tolerated/lose weight Follow-up with weight management as scheduled Plan Follow up in 4 months Orders: Orders PFT pulmonary function test 08/21/24 J45.20 - Mild intermittent asthma, uncomplicated, R06.09 - Other forms of dyspnea Medications: New cholecalciferol (vitamin D3) 50 mcg PO DAILY 90 caps 3RF 90 days E55.9 - Vitamin D deficiency, unspecified budesonide 90 mcg/actuation (Pulmicort Flexhaler) 1 inh inhalation BID 1 ea 3RF J45.20 - Mild intermittent asthma, uncomplicated Changed From nicotine 1 patch transdermal DAILY To nicotine 1 patch transdermal DAILY 7 ea 0RF 7 days
[2024-08-21 13:46] VITALS: BP 120/78; PULSE 77; O2SAT 98; BMI 34.4
== END 2024-08-21 14:41 | disposition home or self-care (01) ==
LOC: HO.HMCH 13:42
PROVIDERS: PCP Internal Medicine; Visit Provider Internal Medicine
DX: Z00.00 Encounter for general adult medical examination without abnormal findings (principal); E55.9 Vitamin D deficiency, unspecified; J45.20 Mild intermittent asthma, uncomplicated; G43.909 Migraine, unspecified, not intractable, without status migrainosus; J30.89 Other allergic rhinitis; R13.10 Dysphagia, unspecified; M51.16 Intervertebral disc disorders with radiculopathy, lumbar region; R20.0 Anesthesia of skin; F41.9 Anxiety disorder, unspecified; F17.200 Nicotine dependence, unspecified, uncomplicated; E66.9 Obesity, unspecified

== ENCOUNTER → 2024-08-21 13:41 | Outpatient (BNVA) | payer OTHER, SELFPAY | PROVIDERS: PCP Internal Medicine; Visit Provider Internal Medicine | DX: Z00.00 Encounter for general adult medical examination without abnormal findings (principal); J45.20 Mild intermittent asthma, uncomplicated; E55.9 Vitamin D deficiency, unspecified | CPT/HCPCS: 99396 ==

== ENCOUNTER 2024-08-30 08:31 | Outpatient (AMB) | payer MEDICAID, SELFPAY ==
[2024-08-30 08:49] VITALS: BP 126/90; PULSE 74; O2SAT 98; BMI 34.5
--- NOTE | 2024-08-30 08:49 | MHC.OFFVIS ---
Vital Signs 08/30/24 08:49 Height 4 ft 11 in Weight 170 lb 10.205 oz BMI 34.5 BP 126/90 H Blood Pressure Location Rt brachial Position Sitting Pulse 74 Pulse Source Pulse Oximeter Pulse Oximetry (%) 98 Oxygen Delivery Method Room Air Intake Visit Reasons: 4 month follow up Abdominal pain Intake Note: Relevant Flags or Indicators ? Requires [place]? Shannan Graham presents in office today for a scheduled 4 mos FUV. CC; Pt reports having recent labs through PCP. No other orders placed recently. ? Relevant GI Sx as reported per pt? Nausea ? Vomiting w/o bleeding. ? Reflux ? Dysphagia ? Fecal abnormalities - Intermittent changes. o?? Constipation o?? Diarrhea ? Abdominal Pain -- typically umbilical in location but can be generalized. Pt reports this is typically related to BM. ? Hx of any recent surgeries? None [place] Required: No Allergies mold Allergy (Severe, Verified 08/30/24 08:51) SOB, feels really sick No Known Drug Allergies Allergy (Unknown, Verified 08/30/24 08:51) none HPI HPI 4 month follow up Abdominal pain: Details: LAST VISIT: Dysphagia Intermittent diarrhea Abdominal pain GERD (gastroesophageal reflux disease) IBS (irritable bowel syndrome) Hiatal hernia Schatzki's ring Plan Patient is not taking senna as she does have loose stools postprandially. Patient feels like she empties her bowels completely. Continue Nexium and avoiding dietary triggers and late night snacking. Staying upright for minimum 3 hours after meals discussed with patient. Continue low FODMAP diet. Avoid food high in fat even male or avocados that could also cause her postprandial loose stools. Patient can take sucralfate twice a day after lunch and after dinner. Colonoscopy endoscopy results discussed with patient. Colonoscopy in 5 years due to family history of colon polyps. Patient will return to the office in 4 months, sooner on as needed basis. She is agreeable to this plan and verbalizes understanding of instructions. She was given the opportunity to ask questions and all questions answered. ? Thank you for allowing me to participate in her care Medications Discontinued sennosides (Natural Senna Laxative) Discontinued Reason: Duplicate 8.6 mg PO BEDTIME 90 tabs 3RF constipation K59.00 TODAY'S VISIT Patient is here today for follow-up. Patient reports that she is feeling little better, however she will continue to have symptoms of postprandial abdominal bloating epigastric pain and occasional loose stools. Patient is taking esomeprazole in the morning and sucralfate at bedtime and she continues to have symptoms. Symptoms worse toward the end of the day and sometimes at bedtime as well. Patient denies melena, hematochezia, unintentional weight loss or ribbon like stools. Patient reports occasional nausea, no vomiting. Weight continues to be stable although patient gained couple lb since last visit. [facility] Medical History Positive PPD Low back pain Anxiety Neck pain on left side Obesity (BMI 30-39.9) Allergic rhinitis Migraine Asthma Seasonal allergies History of sciatica History of cholelithiasis History of active tuberculosis History of abnormal cervical Pap smear Surgical History Hx of colonoscopy History of esophagogastroduodenoscopy (EGD) Hx laparoscopic cholecystectomy History of bilateral tubal ligation History of loop electrical excision procedure (LEEP) Family History Father HTN (hypertension) CVD (cardiovascular disease) Diabetes mellitus Prostate cancer Mother Breast cancer Thyroid cancer CVD (cardiovascular disease) Brother Thyroid cancer Social History Housing: Apartment Alcohol intake: current Alcohol intake frequency: holidays/special occasions only Alcohol type: wine Patient Tobacco Use Status: Current everyday Tobacco user Tobacco use type: Cigarette Cigarette Packs Per Day: 0.25 Cigarettes Per Day: 3 e-Cigarette/Vaping Use: Never Used Second Hand Smoke Exposure: Yes service: No 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 Gender identity: Female Cognitive needs: No Hearing needs: No Vision needs: Yes (Glass) Female Reproductive History Menstrual Age of Menarche: 16 Review of Systems Const Denies weight gain and Denies weight loss ENT Reports no additional complaints, Denies dysphagia and Denies odynophagia Card Reports no additional complaints Resp Reports no additional complaints GI Reports abdominal pain, Denies belching, Denies melena, Reports bloating, Denies change in bowel habits, Reports constipation, Denies dysphagia, Denies excessive flatus, Denies dyspepsia, Reports heartburn, Denies diarrhea, Reports loose stools, Reports nausea, Denies odynophagia and Denies vomiting Reports no additional complaints Musc Reports no additional complaints Neuro Reports no additional complaints Psych Reports no additional complaints Endo Reports no additional complaints Physical Exam Vital Signs: Last Vital Signs Pulse 74 08/30/24 08:49 BP 126/90 H 08/30/24 08:49 Pulse Ox 98 08/30/24 08:49 Oxygen Delivery Method Room Air 08/30/24 08:49 BMI result Body Mass Index 34.5 Const General: healthy appearing, no acute distress and well developed Nutritional Appearance: obese Orientation/consciousness: patient oriented x3 Resp Effort & Inspection: normal respiratory effort, able to speak in complete sentences, no tracheal deviation and symmetric chest movement Auscultation: clear to auscultation bilaterally Cardio Rate: regular rate GI Inspection: Yes normal to inspection, No distended and Yes obesity Palpation (GI): Soft to palpation, not firm, nontender and No hepatosplenomegaly present Auscultation: normal bowel sounds General: Yes no CVA tenderness Back/Spine/Pelvis Back: no CVA tenderness Skin General skin exam: elasticity normal, turgor normal and dry skin Neuro General: patient oriented x3 Psych Appearance: grossly normal Mental Status: mental status grossly normal Assessment & Plan Assessment & Plan (1) Dysphagia: Code(s): R13.10 - Dysphagia, unspecified Category: Medical Qualifiers: Dysphagia type: unspecified Qualified Code(s): R13.10 - Dysphagia, unspecified (2) Intermittent diarrhea: Code(s): R19.7 - Diarrhea, unspecified Category: Medical (3) Abdominal pain: Code(s): R10.9 - Unspecified abdominal pain Category: Medical Qualifiers: Abdominal location: generalized Qualified Code(s): R10.84 - Generalized abdominal pain (4) GERD (gastroesophageal reflux disease): Code(s): K21.9 - Gastro-esophageal reflux disease without esophagitis Qualifiers: Esophagitis presence: esophagitis presence not specified Qualified Code(s): K21.9 - Gastro-esophageal reflux disease without esophagitis (5) IBS (irritable bowel syndrome): Code(s): K58.9 - Irritable bowel syndrome, unspecified Qualifiers: Irritable bowel syndrome type: with both diarrhea and constipation Qualified Code(s): K58.2 - Mixed irritable bowel syndrome (6) Hiatal hernia: Code(s): K44.9 - Diaphragmatic hernia without obstruction or gangrene (7) Schatzki's ring: Code(s): K22.2 - Esophageal obstruction Plan Patient will continue Nexium and we will stop sucralfate at bedtime and will start famotidine. Patient was encouraged to avoid dietary triggers and late night snacking pain staying upright for minimum 3 hours after meals discussed with patient. Low FODMAP diet discussed with patient. Patient was encouraged to eat smaller meals and more often. Patient will return to the office in 6 months, she will call us if she will have any GI concerning symptoms. She is agreeable to plan of care and verbalizes understanding of instructions. She was given the opportunity to ask questions and all questions answered. Thank you for allowing me to participate in her care Medications: New famotidine (Pepcid) 20 mg PO BEDTIME 30 tabs 3RF K21.9 - Gastro-esophageal reflux disease without esophagitis Discontinued sucralfate Discontinued Reason: Doctor's Order 1 g PO BID 60 tabs 4RF R19.7 - Diarrhea, unspecified Coding Level of Care Code Est Pt Level 3 (08566) Diagnoses Dysphagia, unspecified type R13.10 Dysphagia type: unspecified Intermittent diarrhea R19.7 Generalized abdominal pain R10.84 Abdominal location: generalized Gastroesophageal reflux disease, unspecified whether esophagitis present K21.9 Esophagitis presence: esophagitis presence not specified Irritable bowel syndrome with both constipation and diarrhea K58.2 Irritable bowel syndrome type: with both diarrhea and constipation Hiatal hernia K44.9 Schatzki's ring K22.2 Time Spent (min) 30 Comment 20 minutes spent with patient and additional 10 minutes spent reviewing her records
== END 2024-08-30 09:53 | disposition home or self-care (01) ==
LOC: HO.HGI 08:32
PROVIDERS: PCP Internal Medicine; Visit Provider Nurse Practitioner Family
DX: R13.10 Dysphagia, unspecified (principal); R19.7 Diarrhea, unspecified; R10.84 Generalized abdominal pain; K21.9 Gastro-esophageal reflux disease without esophagitis; K58.2 Mixed irritable bowel syndrome; K44.9 Diaphragmatic hernia without obstruction or gangrene; K22.2 Esophageal obstruction
CPT/HCPCS: 99213

== ENCOUNTER → 2024-08-30 08:31 | Outpatient (BNVA) | payer MEDICAID, SELFPAY | PROVIDERS: PCP Internal Medicine; Visit Provider Nurse Practitioner Family | DX: K21.9 Gastro-esophageal reflux disease without esophagitis (principal); K58.2 Mixed irritable bowel syndrome; K44.9 Diaphragmatic hernia without obstruction or gangrene; K22.2 Esophageal obstruction; R10.9 Unspecified abdominal pain; R13.10 Dysphagia, unspecified; R10.84 Generalized abdominal pain | CPT/HCPCS: 99212 ==

== ENCOUNTER 2024-10-06 10:42 | Outpatient (REF) | payer OTHER, SELFPAY ==
[2024-10-06 10:14] VITALS: PULSE 81; O2SAT 99
--- NOTE | 2024-10-06 10:51 | PFT_ITS ---
Indication: Asthma Spirometry [FEV1 to FVC 84%; FEV1 2.21 L; FVC 2.64 L. No significant response to bronchodilators noted. Maximum voluntary ventilation 95% predicted.] Lung Volumes [Total lung capacity 80% predicted; expiratory reserve volume 17% predicted] Diffusion Capacity [DLCO 4% predicted] Comparisons [None] Interpretation [No obstructive nor restrictive ventilatory defects identified. No significant response to bronchodilators noted. Normal maximum voluntary ventilation. Lung volumes are normal except for decrease in the expiratory reserve volume secondary to likely an elevated BMI. Diffusing capacity is within normal limits. If asthma is new differential methacholine challenge may be helpful in assessing for hyperreactive airways. Otherwise clinical correlation warranted.] MTDD
== END 2024-10-06 10:43 | disposition home or self-care (01) ==
LOC: HO.RESP 10:42
PROVIDERS: PCP Internal Medicine; Visit Provider Internal Medicine
DX: J45.20 Mild intermittent asthma, uncomplicated (principal); R06.09 Other forms of dyspnea
CPT/HCPCS: 94010; 94640; 94727; 94729

== ENCOUNTER → 2024-10-06 10:51 | Outpatient (BNV) | payer OTHER, SELFPAY | PROVIDERS: PCP Internal Medicine; Visit Provider Hospitalist | DX: J45.20 Mild intermittent asthma, uncomplicated (principal) | CPT/HCPCS: 94060; 94727; 94729 ==

== ENCOUNTER 2025-04-04 14:14 | Emergency (ER) | payer OTHER, SELFPAY ==
--- NOTE | ~2025-04-04 | US_ITS ---
CLINICAL HISTORY: pelvic pain >R. fever. r o toa --- Additional Notes or Special Instructions: nausea . painful intercourse US pelvis transabdominal and transvaginal Comparison: None Findings: Transabdominal scanning performed for overall anatomy. Transvaginal scanning performed for additional detail. Anteverted uterus is 8.5 cm length. Normal myometrium. Endometrium 8 mm thickness. Right ovary 1.9 x 1.2 x 1.3 cm, corresponds to a volume of 1.6 mL. Left ovary 3.6 x 1.6 x 1.2 cm, corresponds to a volume of 3.6 mL.. Normal color Doppler of both ovaries. No free fluid. IMPRESSION: 1. Normal pelvic ultrasound This document has been electronically signed by: Troy Tate MD on 04/05/2025 00:17:12
[2025-04-04 14:52] VITALS: BP 149/96; PULSE 110; RESP 18; TEMP 37.1; O2SAT 99; BMI 35.7
--- NOTE | 2025-04-04 14:58 | ED_ITS ---
HPI - General Adult General Chief complaint: Abdominal Pain Stated complaint: abd pain Time Seen by Provider: 04/04/25 15:38 Source: patient, RN notes reviewed and old records reviewed Mode of arrival: ambulatory History of Present Illness ED Provider: Casandra Quesada PA-C HPI narrative: 44-year-old female with a past medical history of anxiety, migraines, asthma, cholelithiasis, presenting to the ED complaining of lightheadedness/dizziness and lower abdominal/pelvic pain x 1 month worsening over the past week/few days. Reports fever T-max 101 earlier today - took Tylenol with relief. Reports dyspareunia, pain worsen ambulation, dysuria, and chronic nausea. Denies chills, vomiting, diarrhea/constipation, hematuria, vaginal bleeding, vaginal discharge Related Data Home Medications ?Medication ?Instructions ?Recorded ?Confirmed riboflavin (vitamin B2) 250 mg 200 mg PO DAILY 08/01/20 08/21/24 tablet,extended release latanoprost 0.005 % eye drops 1 drp ophthalmic (eye) BEDTIME 08/04/23 08/21/24 Previous Rx's ?Medication ?Instructions ?Recorded loratadine 10 mg tablet (Allergy 10 mg PO DAILY PRN allergy 09/09/20 Relief (loratadine)) symptoms 90 days #90 tabs baclofen 10 mg tablet 10 mg PO TID PRN for muscle spasm 02/28/21 #90 tabs esomeprazole magnesium 40 mg 40 mg PO DAILY #90 caps 08/08/24 capsule,delayed release budesonide 90 mcg/actuation breath 1 inh inhalation BID #1 ea 08/21/24 activated powder inhaler (Pulmicort Flexhaler) cholecalciferol (vitamin D3) 50 50 mcg PO DAILY 90 days #90 caps 08/21/24 mcg (2,000 unit) capsule nicotine 14 mg/24 hr daily 1 patch transdermal DAILY 7 days 08/21/24 transdermal patch #7 ea Ventolin HFA 90 mcg/actuation 2 puff inhalation Q6H PRN 12/22/24 aerosol inhaler (albuterol sulfate) shortness of breath or wheezing 30 days #18 grams bupropion HCl 150 mg 24 hr tablet, 150 mg PO QAM 90 days #90 tabs 01/15/25 extended release famotidine 20 mg tablet 20 mg PO BEDTIME #90 tabs 03/08/25 doxycycline hyclate 100 mg capsule 100 mg PO BID 14 days #27 caps 04/05/25 metronidazole 500 mg tablet 500 mg PO BID #27 tabs 04/05/25 Allergies Allergy/AdvReac Type Severity Reaction Status Date / Time mold Allergy Severe SOB, feels Verified 04/04/25 14:57 really sick No Known Drug Allergies Allergy Unknown none Verified 04/04/25 14:57 Review of Systems 2 Review of Systems: Yes all other systems are reviewed and are negative Constitutional: Constitutional: Reports as per [facility] Past Medical History Attestation statement: The following information was validated with the patient. Source: old records reviewed Medical History Vitamin D deficiency Positive PPD Low back pain Anxiety Neck pain on left side Obesity (BMI 30-39.9) Allergic rhinitis Migraine Asthma Seasonal allergies History of sciatica History of cholelithiasis History of active tuberculosis History of abnormal cervical Pap smear Surgical History Hx of colonoscopy History of esophagogastroduodenoscopy (EGD) Hx laparoscopic cholecystectomy History of bilateral tubal ligation History of loop electrical excision procedure (LEEP) Family History Family History Father HTN (hypertension) CVD (cardiovascular disease) Diabetes mellitus Prostate cancer Mother Breast cancer Thyroid cancer CVD (cardiovascular disease) Brother Thyroid cancer Social History Social History Housing: Apartment Alcohol intake: current Alcohol intake frequency: holidays/special occasions only Alcohol type: wine Patient Tobacco Use Status: Current everyday Tobacco user Tobacco use type: Cigarette Cigarette Packs Per Day: 0.25 Cigarettes Per Day: 3 e-Cigarette/Vaping Use: Never Used Second Hand Smoke Exposure: Yes Advance Directives: No Advance Directives Information Provided: No Do you have a plan to hurt others: No Plan Patient : No service: No 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 Gender identity: Female Cognitive needs: No Hearing needs: No Vision needs: Yes (Glass) Physical Exam ED Vital Signs: Vital Signs - 24 hr 04/05/25 00:41 04/05/25 00:52 Temperature 98.3 F 98.3 F Pulse Rate 73 73 Respiratory Rate 16 16 Blood Pressure 140/79 H 140/79 H Pulse Oximetry 99 99 Oxygen Delivery Method Room Air Room Air BMI result Body Mass Index 35.7 Const General: cooperative, healthy appearing and no acute distress Orientation/consciousness: patient oriented x3 Limitations: no limitations HENMT Head: Yes normal to inspection and Yes atraumatic Ears: hearing grossly normal bilaterally General nose exam: Normal external nose present Face and sinus: Yes normal facial exam Eyes General: appearance normal, both eyes and all related structures EOM: EOMs intact bilaterally Neck Neck: Yes normal visual inspection and Yes no meningeal signs Resp Effort & Inspection: normal respiratory effort and no respiratory distress Auscultation: clear to auscultation bilaterally Cardio Rate: regular rate Heart sounds: S1 normal heart sound present and S2 normal heart sound present GI Inspection: Yes normal to inspection Palpation (GI): Soft to palpation, Tenderness to palpation present (GI) suprapubicly (lower abdomen), no guarding and not rigid General: Yes no CVA tenderness External Female Exam: normal external appearance Speculum Exam - Vagina: normal appearance of the vagina, no foreign bodies, no lacerations, no lesions, No vaginal bleeding and no masses Bimanual exam- vagina & uterus: cervical motion tenderness Bimanual Exam- Adnexa, other: tender bilaterally OB/external & speculum: no foreign bodies and vaginal bleeding Back/Spine/Pelvis Back: no CVA tenderness Skin Rashes: no rashes Wounds: no wounds Neuro General: patient oriented x3, tone normal and no meningeal signs Cranial nerves: Yes CN's II-XII intact bilaterally Gait exam (Neuro): Normal gait present Extrem General: Yes normal to inspection Course Course Course Narrative: RME: 44-year-old female presents to ED for right lower quadrant pelvic pain with fever. Patient has had fever over 101. Positive for RLQ tenderness on palpatino. labs odered -1645--no leukocytosis. H&H at patient's baseline. Labs otherwise reassuring. HCG negative -UA negative -BV positive -1800--ED care transferred to [facility] Yates pending ultrasound and dispo per results Reevaluation(s) Reevaluation #1: Ceci Kemp NP - patient received ceftriaxone 1 g IM in the emergency department in addition to 1st dose of metronidazole and doxycycline. Have sent remainder prescription for metronidazole and doxycycline to pharmacy for treatment of PID. Discussed strict return precautions, outpatient follow-up with OBGYN. All questions answered US pelvis transabdominal and transvaginal Comparison: None Findings: Transabdominal scanning performed for overall anatomy. Transvaginal scanning performed for additional detail. Anteverted uterus is 8.5 cm length. Normal myometrium. Endometrium 8 mm thickness. Right ovary 1.9 x 1.2 x 1.3 cm, corresponds to a volume of 1.6 mL. Left ovary 3.6 x 1.6 x 1.2 cm, corresponds to a volume of 3.6 mL.. Normal color Doppler of both ovaries. No free fluid. IMPRESSION: 1. Normal pelvic ultrasound Medications Administered Discontinued Medications Generic Name Dose Route Start Last Admin Trade Name Freq PRN Reason Stop Dose Admin Ceftriaxone Sodium 500 mg 04/05/25 00:45 04/05/25 00:51 Ceftriaxone Sodium 500 Mg Vial IM 04/05/25 00:46 500 mg ONCE ONE Administration Doxycycline Monohydrate 100 mg 04/05/25 00:30 04/05/25 00:45 Doxycycline Monohydrate 100 Mg Capsule PO 04/05/25 00:31 100 mg ONCE ONE Administration Sodium Chloride 1,000 mls @ 999 mls/hr 04/04/25 16:00 04/04/25 18:26 Ns IV 04/04/25 17:00 Infused .Q1H1M ANA Infusion Ketorolac Tromethamine 15 mg 04/04/25 16:43 04/04/25 17:02 Ketorolac Tromethamine 15 Mg/Ml Vial IVPUSH 04/04/25 16:44 15 mg ONCE ONE Administration Ketorolac Tromethamine 15 mg 04/04/25 20:13 04/04/25 20:26 Ketorolac Tromethamine 15 Mg/Ml Vial IVPUSH 04/04/25 20:14 15 mg ONCE ONE Administration Metronidazole 500 mg 04/05/25 00:30 04/05/25 00:45 Metronidazole 500 Mg Tablet PO 04/05/25 00:31 500 mg ONCE ONE Administration Ondansetron HCl 4 mg 04/04/25 16:43 04/04/25 17:03 Ondansetron Hcl 4 Mg/2 Ml Vial IVPUSH 04/04/25 16:44 4 mg ONCE ONE Administration Medical Decision Making Medical Decision Making MDM Narrative: 44-year-old female with a past medical history of anxiety, migraines, asthma, cholelithiasis, presenting to the ED complaining of lightheadedness/dizziness and lower abdominal/pelvic pain x 1 month worsening over the past week/few days with fever T-max 101 degrees today. On exam tachycardic likely from pain, NAD/nontoxic appearing, abdomen is soft with suprapubic/bilateral lower abdominal tenderness, no rebound or guarding, no CVAT. On pelvic exam no bleeding/discharge or masses/lesions noted however bilateral adnexal and CMT tenderness appreciated. Concern for PID vs TOA vs ovarian cyst. Low suspicion for ovarian torsion with duration of symptoms. Appendicitis/diverticulitis on differential however lower at this time. Lower suspicion for renal stones/pyelo Low suspicion for severe sepsis at this time 16:40 Plan: Labs, UA, STI testing, ultrasound, re-evaluate Please refer to course for remaining clinical decision making, interpretation of labs/imaging results, and discussions with consultants and/or family members. Differential Diagnosis Differential Diagnoses: The differential diagnosis associated with the presentation includes As above Admission/Observation Consideration of admission/observation: Escalation of care including admission/observation considered Lab Data MDM Lab Attestation statement: I reviewed the patient's lab results. 04/04/25 15:06 04/04/25 15:06 Labs: Lab Results 04/04/25 04/04/25 04/04/25 Range/Units 15:06 15:25 16:18 WBC 10.3 (4.8-10.8) X10*3/uL RBC 4.75 (4.20-5.50) X10*6/uL Hgb 11.4 L (12.0-16.0) g/dl Hct 36.6 L (37.0-47.0) % MCV 77.1 L (80.0-98.0) fL MCH 24.0 L (27.0-33.0) pg MCHC 31.1 (31.0-35.0) g/dl RDW 17.1 H (11.0-16.0) % Plt Count 267 (160-400) X10*3/uL MPV 9.5 (9.4-12.3) fL Immature Gran % (Auto) 0.3 (0.0-0.4) % Neut % (Auto) 72.0 (45-73) % Lymph % (Auto) 20.1 (20-40) % Owen % (Auto) 7.1 (2-11) % Eos % (Auto) 0.2 (0-4) % Baso % (Auto) 0.3 (0-2) % Lymph # (Auto) 2.1 (1.2-4.9) X10*3/uL Owen # (Auto) 0.7 (0.1-1.2) X10*3/uL Eos # (Auto) 0.0 (0.0-0.4) X10*3/uL Baso # (Auto) 0.0 (0.0-0.2) X10*3/uL Abs Immat Gran (auto) 0.03 (0.00-0.03) X10*3/uL Absolute Neuts (auto) 7.4 (2.0-8.3) x10*3/uL Absolute Nucleated RBC 0.000 (0.0-0.012) X10*3/uL Nucleated RBC % (auto) 0.0 (0.0-0.2) /100WBC Sodium 135 (135-145) mmol/L Potassium 3.9 (3.3-5.1) mmol/L Chloride 106 (96-108) mmol/L Carbon Dioxide 23 (22-29) mmol/L Anion Gap 10 L (12-20) BUN 12 (9-16) mg/dL Creatinine 0.77 (0.5-1.4) mg/dL Estim Creat Clear Calc 83.4 Estimated GFR > 60 Random Glucose 97 (60-115) mg/dL Calcium 9.5 (8.4-10.2) mg/dL Magnesium 2.1 (1.6-2.6) mg/dL Total Bilirubin 0.2 (0.0-1.0) mg/dL AST 24 (5-31) U/L ALT 33 H (0-31) U/L Alkaline Phosphatase 107 (39-117) U/L Total Protein 7.6 (6.5-8.0) g/dL Albumin 4.6 (3.5-5.0) g/dL Lipase 18 (8-78) U/L Beta HCG, Quant < 2 mIU/mL Urine Color Yellow Urine Appearance Clear Urine pH 7.5 (5.0-9.0) Ur Specific Con[place]pcion 1.020 (1.005-1.025) Urine Protein Negative (Neg-Trace) mg/dL Urine Glucose (UA) Negative (Negative) mg/dL Urine Ketones Negative (Negative) mg/dL Urine Blood Negative (Negative) Urine Nitrite Negative (Negative) Ur Leukocyte Esterase Negative (Negative) Urine Test NEGATIVE (NEGATIVE) Chlam trachomat DNA PCR NOT DETECTED (Not Detect.) N.gonorrhoeae DNA (PCR) NOT DETECTED (Not Detect.) T. vaginalis (PCR) NOT DETECTED (Not Detect) Bact vaginosis (PCR) POSITIVE A (Negative) C. krusei/glabrata (PCR) NOT DETECTED (Not Detect) So group (PCR) NOT DETECTED (Not Detect) Independent Interpretation I performed an independent interpretation of an: Ultrasound Radiology Impression Discussion of test interpretation with radiology: I have reviewed the radiologist's reading. External Record Review External record reviewed: Inpatient record, Office record, Outpatient record, Prior outpatient labs, Prior outpatient radiology, Primary care record and Outside ED record Tests considered The following testing was considered but not selected: As above Prescription Management I considered prescription management with: Pain Medication and Antibiotic Chronic Conditions Patient?s care impacted by: Other Social Determinants Patient?s care significantly limited by Social Determinants of Health including: Other Social Determinant of Health Discharge Plan Discharge Clinical Impression: Acute pelvic inflammatory disease (PID), Bacterial vaginosis Patient Disposition: Home, Self-Care Instructions: Pelvic Inflammatory Disease (DC), Bacterial Vaginosis (ED) Additional Instructions: Ultrasound was without abnormal findings. Testing today for bacterial vaginosis was positive, and on examination there is concern for PID/pelvic inflammatory disease. You are being prescribed a course of antibiotics please take these accordingly. Do not skip any doses or stop taking early even if you begin to feel better. On doxycycline, do not take pills immediately before going to bed and swallow pills with plenty of water. Avoid direct sunlight, iron, antacids, and Pepto Bismol. Call your provider if you develop new ringing in your ears, new problems hearing, dizziness, difficulty swallowing, rash, abdominal discomfort, nausea, or diarrhea.? Please arrange for follow-up with OBGYN. You may return back to emergency department any new or worsening symptoms or concerns Please see list of local OBGYN providers below: [facility] [place] [phone] [facility] [address] [place] [phone] [facility] [place] [phone] [facility] [place] [phone] Prescriptions: New doxycycline hyclate 100 mg capsule 100 mg PO BID 14 Days Qty: 27 0RF metronidazole 500 mg tablet 500 mg PO BID Qty: 27 0RF No Action baclofen 10 mg tablet 10 mg PO TID PRN (Reason: for muscle spasm) Qty: 90 0RF esomeprazole magnesium 40 mg capsule,delayed release(DR/EC) 40 mg PO DAILY Qty: 90 1RF albuterol sulfate [Ventolin HFA] 90 mcg/actuation HFA aerosol inhaler 2 puff inhalation Q6H PRN (Reason: shortness of breath or wheezing) 30 Days Qty: 18 5RF bupropion HCl 150 mg tablet extended release 24 hr 150 mg PO QAM 90 Days Qty: 90 1RF famotidine 20 mg tablet 20 mg PO BEDTIME Qty: 90 1RF loratadine [Allergy Relief (loratadine)] 10 mg tablet 10 mg PO DAILY PRN (Reason: allergy symptoms) 90 Days Qty: 90 3RF riboflavin (vitamin B2) 250 mg tablet extended release 200 mg PO DAILY latanoprost 0.005 % drops 1 drp ophthalmic (eye) BEDTIME cholecalciferol (vitamin D3) 50 mcg (2,000 unit) capsule 50 mcg PO DAILY 90 Days Qty: 90 3RF nicotine 14 mg/24 hr patch 24 hour 1 patch transdermal DAILY 7 Days Qty: 7 0RF Pulmicort Flexhaler 90 mcg/actuation aerosol powdr breath activated 1 inh inhalation BID Qty: 1 3RF Referrals: Samuel Villalta MD [Primary Care Provider] - Interventions: ED Discharge Assessment Last Done: 04/05/25 00:52 Discharge Date/Time: 04/05/25 00:58 Print Language: Faroese
[2025-04-04 15:15] LABS: MANUAL DIFF FLAG NO
[2025-04-04 15:17] LABS: Basophils Percent Auto 0.3 % (0-2); Eosinophils Percent Auto 0.2 % (0-4); Hematocrit 36.6 % (37.0-47.0); Hemoglobin 11.4 g/dl (12.0-16.0); Imm Gran Abs Auto 0.03 X10*3/uL (0.00-0.03); Imm Gran Pct Auto 0.3 % (0.0-0.4); Lymphocytes Absolute Auto 2.1 X10*3/uL (1.2-4.9); Lymphocytes Percent Auto 20.1 % (20-40); Mean Corpuscular HGB Conc 31.1 g/dl (31.0-35.0); Mean Corpuscular Volume 77.1 fL (80.0-98.0); Mean Platelet Volume 9.5 fL (9.4-12.3); Monocytes Absolute Auto 0.7 X10*3/uL (0.1-1.2); Monocytes Percent Auto 7.1 % (2-11); Neutrophils Absolute Auto 7.4 x10*3/uL (2.0-8.3); Platelet Count 267 X10*3/uL (160-400); Red Blood Count 4.75 X10*6/uL (4.20-5.50); Red Cell Distribution Width 17.1 % (11.0-16.0); White Blood Count 10.3 X10*3/uL (4.8-10.8)
[2025-04-04 15:34] LABS: Appearance Urine Clear; Color Urine Yellow; Glucose Urine UA Negative (Negative); Leukocyte Esterase Urine Negative (Negative); Nitrite Urine Negative (Negative); PH 7.5 (5.0-9.0); UPreg QC Valid YES; Urine Blood Negative (Negative); Urine Ketones Negative (Negative); Urine Pregnancy NEGATIVE (NEGATIVE); Urine Protein Negative (Neg-Trace)
[2025-04-04 15:40] LABS: Alanine Aminotransferase 33 U/L (0-31); Albumin Level 4.6 g/dL (3.5-5.0); Alkaline Phosphatase 107 U/L (39-117); Anion Gap 10 (12-20); Aspartate Amino Transferase 24 U/L (5-31); Bilirubin Total 0.2 mg/dL (0.0-1.0); Blood Urea Nitrogen 12 mg/dL (9-16); Calcium 9.5 mg/dL (8.4-10.2); Carbon Dioxide 23 mmol/L (22-29); Chloride 106 mmol/L (96-108); Creatinine Clr Calc Pharmacy 83.4; Estimated Glomerular Filt Rate > 60; Glucose Random 97 mg/dL (60-115); Potassium 3.9 mmol/L (3.3-5.1); Sodium 135 mmol/L (135-145); Total Protein 7.6 g/dL (6.5-8.0)
[2025-04-04 15:42] LABS: HCG Quantitative < 2 mIU/mL
[2025-04-04 16:05] LABS: Lipase 18 U/L (8-78); Magnesium 2.1 mg/dL (1.6-2.6)
[2025-04-04] MEDS: 0.9 % Sodium Chloride 1,000 ML 999 ML IV (16:17)
[2025-04-04 17:00] VITALS: BP 142/87; PULSE 94; RESP 14; TEMP 36.6; O2SAT 100
[2025-04-04] MEDS: Ketorolac Tromethamine 15 MG/ML VIAL IVPUSH ×2 (17:02→20:26)
[2025-04-04] MEDS: ondansetron HCL 4 MG/2 ML VIAL IVPUSH (17:03)
[2025-04-04 18:12] LABS: Bacterial Vaginosis PCR POSITIVE (Negative); Candida Group PCR NOT DETECTED (Not Detect); Candida glab krusei PCR NOT DETECTED (Not Detect); Trichomonas vaginalis PCR NOT DETECTED (Not Detect)
[2025-04-04 18:45] LABS: CT PCR NOT DETECTED (Not Detect.); NG PCR NOT DETECTED (Not Detect.)
[2025-04-05 00:41] VITALS: BP 140/79; PULSE 73; RESP 16; TEMP 36.8; O2SAT 99
[2025-04-05] MEDS: metroNIDAZOLE 500 MG TABLET PO (00:45)
[2025-04-05] MEDS: Doxycycline Monohydrate 100 MG CAPSULE PO (00:45)
[2025-04-05] MEDS: cefTRIAXone sodium 500 MG VIAL IM (00:51)
[2025-04-05 00:52] VITALS: BP 140/79; PULSE 73; RESP 16; TEMP 36.8; O2SAT 99
== END 2025-04-05 00:58 | disposition home or self-care (01) ==
PROVIDERS: Physician Assistant; Emergency Provider Emergency Medicine Emergency Medical Services; PCP Internal Medicine
DX: N73.0 Acute parametritis and pelvic cellulitis (principal); N76.0 Acute vaginitis; R50.9 Fever, unspecified; R10.2 Pelvic and perineal pain; F17.210 Nicotine dependence, cigarettes, uncomplicated
CPT/HCPCS: 36415; 76830; 76856; 80053; 81003; 81025; 81515; 83690; 83735; 84702; 85025; 87040; 87491; 87591; 96361; 96372; 96374; 96375; 96376; 99284; 99285; J0696; J1885; J2405

== ENCOUNTER → 2025-04-04 15:47 | Outpatient (BNV) | payer OTHER, SELFPAY | PROVIDERS: Emergency Provider Emergency Medicine Emergency Medical Services; PCP Internal Medicine; Visit Provider Student in an Organized Health Care Education/Training Program | DX: R10.2 Pelvic and perineal pain (principal) | CPT/HCPCS: 76830; 76856 ==

== ENCOUNTER 2025-04-12 11:16 | Outpatient (AMB) | payer OTHER, SELFPAY ==
--- NOTE | 2025-04-12 11:28 | MHC.OFFVIS ---
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 Admits to having GI upset taking meds all at once b.i.d. trying to have yogurt or food before dosing. Overall this has improved along with her pelvic discomfort. [facility] Medical History Vitamin D deficiency Positive PPD Low back pain Anxiety Neck pain on left side Obesity (BMI 30-39.9) Allergic rhinitis Migraine Asthma Seasonal allergies History of sciatica History of cholelithiasis History of active tuberculosis History of abnormal cervical Pap smear Surgical History Hx of colonoscopy History of esophagogastroduodenoscopy (EGD) Hx laparoscopic cholecystectomy History of bilateral tubal ligation History of loop electrical excision procedure (LEEP) Family History Father HTN (hypertension) CVD (cardiovascular disease) Diabetes mellitus Prostate cancer Mother Breast cancer Thyroid cancer CVD (cardiovascular disease) Brother Thyroid cancer Social History Housing: Apartment Alcohol intake: current Alcohol intake frequency: holidays/special occasions only Alcohol type: wine Patient Tobacco Use Status: Current everyday Tobacco user Tobacco use type: Cigarette Cigarette Packs Per Day: 0.25 Cigarettes Per Day: 3 e-Cigarette/Vaping Use: Never Used Second Hand Smoke Exposure: Yes service: No 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 Gender identity: Female Cognitive needs: No Hearing needs: No Vision needs: Yes (Glass) Female Reproductive History Menstrual Age of Menarche: 16 Review of Systems Const All systems reviewed & are unremarkable except as noted in HPI and below Physical Exam Vital Signs: Last Vital Signs BP 110/74 04/12/25 11:39 Const General: cooperative, healthy appearing and no acute distress Orientation/consciousness: patient oriented x3 GI Inspection: Yes normal to inspection Palpation (GI): Soft to palpation and Other GI palpation findings present (Nontender) Rectal Exam - Female: visual inspection normal General: Yes bladder normal to palpation External Female Exam: normal appearance of the urethra Speculum Exam - Vagina: normal appearance of the vagina, normal palpation and normal vaginal discharge Speculum Exam - Cervix: normal appearance of the cervix, normal palpation and Other cervical findings present (Shortened cervix post LEEP appearance) Bimanual exam- vagina & uterus: normal bimanual exam, normal palpation, uterine size normal, bladder normal to palpation, normal palpation, uterine shape normal and non-tender Bimanual Exam- Adnexa, other: normal adnexae Neuro General: patient oriented x3 Results AMB Test Urine AMB Test Urine Negative Last Edit by BENJAMIN Thomas on 04/12/25 11:45 AMB Urinalysis, Automated UA Leukoctes 0 Mars/uL Last Edit by BENJAMIN Thomas on 04/12/25 11:45 UA Nitrite Negative Last Edit by Spring Palomares Garland on 04/12/25 11:45 UA Urobilinogen 0 mg/dL Last Edit by BENJAMIN Thomas on 04/12/25 11:45 UA Protein 1 mg/dL Last Edit by Spring Palomares Garland on 04/12/25 11:45 UA pH 6.0 Last Edit by Spirng Palomares Garland on 04/12/25 11:45 UA Blood 0 Kehinde/uL Last Edit by BENJAMIN Thomas on 04/12/25 11:45 UA Specific [place] 1.030 Last Edit by BENJAMIN Thomas on 04/12/25 11:45 UA Ketone Negative Last Edit by BENJAMIN Thomas on 04/12/25 11:45 UA Bilirubin 0 mg/dL Last Edit by Spring Palomares Garland on 04/12/25 11:45 UA Glucose 0 mg/dL Last Edit by Sprnig Palomares Garland on 04/12/25 11:45 Results Reviewed Results Reviewed: Laboratory Last Values Urine pH (Auto) 6.0 04/12/25 11:43 Specific [place] (Auto) 1.030 04/12/25 11:43 Urine Protein (Auto) 1 mg/dL 04/12/25 11:43 Glucose (UA)(Auto) 0 mg/dL 04/12/25 11:43 Urine Ketones (Auto) Negative 04/12/25 11:43 Urine Blood (Auto) 0 Kehinde/uL 04/12/25 11:43 Urine Nitrite (Auto) Negative 04/12/25 11:43 Urine Bilirubin (Auto) 0 mg/dL 04/12/25 11:43 Urine Urobilinogen (Auto) 0 mg/dL 04/12/25 11:43 Leukocyte Esterase (Auto) 0 Mars/uL 04/12/25 11:43 Tst Clinic Negative 04/12/25 11:43 Assessment & Plan Assessment & Plan (1) Pelvic inflammatory disease (PID): Code(s): N73.9 - Female pelvic inflammatory disease, unspecified Category: Medical (2) PID (acute pelvic inflammatory disease): Code(s): N73.0 - Acute parametritis and pelvic cellulitis Plan Discussed: Med management advised to separate the doses of antibiotics always take with food, importance of completing all medication. Plan pelvic recheck 1-2 weeks. Call sooner if there is any concerns with increasing pain in the fever flu-like symptoms or other concerns. Pelvic rest for a full 2 weeks until her next checkup. The patient expressed understanding and agreement with the plan of care. All of her questions and concerns were addressed to the best of my ability. This note is constructed using voice recognition software. While every effort has been made to ensure accuracy, superintendent general errors may have been included. Orders: Orders AMB HCG Urine Test Today R10.2 - Pelvic and perineal pain AMB Urinalysis Automated Today R10.2 - Pelvic and perineal pain Coding Level of Care Code Est Pt Level 3 (21921) Diagnoses Pelvic inflammatory disease (PID) N73.9 PID (acute pelvic inflammatory disease) N73.0
[2025-04-12 11:39] VITALS: BP 110/74
== END 2025-04-12 12:01 | disposition home or self-care (01) ==
LOC: HO.HWS 11:16
PROVIDERS: PCP Internal Medicine; Visit Provider Advanced Practice Midwife
DX: N73.9 Female pelvic inflammatory disease, unspecified (principal); N73.0 Acute parametritis and pelvic cellulitis; R10.2 Pelvic and perineal pain
CPT/HCPCS: 99213

== ENCOUNTER → 2025-04-12 11:16 | Outpatient (BNVA) | payer OTHER, SELFPAY | PROVIDERS: PCP Internal Medicine; Visit Provider Advanced Practice Midwife | DX: R10.2 Pelvic and perineal pain (principal); N93.0 Postcoital and contact bleeding; N73.0 Acute parametritis and pelvic cellulitis; Z32.02 Encounter for pregnancy test, result negative; N73.9 Female pelvic inflammatory disease, unspecified | CPT/HCPCS: 81003; 81025 ==

== ENCOUNTER 2025-04-19 15:34 | Outpatient (AMB) | payer OTHER, SELFPAY ==
[2025-04-19 15:36] VITALS: BP 112/70
--- NOTE | 2025-04-19 15:36 | A.OFFVIS_ITS ---
Vital Signs 04/19/25 15:36 BP 112/70 Intake Visit Reasons: PID follow up Compliance Associate: Compliance Associate Present (Vanessa) Allergies mold Allergy (Severe, Verified 04/19/25 15:39) SOB, feels really sick No Known Drug Allergies Allergy (Unknown, Verified 04/19/25 15:39) none HPI Comments Details: Patient is here today for a follow up on PID. Continues to take medication has several days remaining. Reports feeling much better and has no other concerns. She reports her partner was seen by his provider. [facility] Medical History Vitamin D deficiency Positive PPD Low back pain Anxiety Neck pain on left side Obesity (BMI 30-39.9) Allergic rhinitis Migraine Asthma Seasonal allergies History of sciatica History of cholelithiasis History of active tuberculosis History of abnormal cervical Pap smear Surgical History Hx of colonoscopy History of esophagogastroduodenoscopy (EGD) Hx laparoscopic cholecystectomy History of bilateral tubal ligation History of loop electrical excision procedure (LEEP) Family History Father HTN (hypertension) CVD (cardiovascular disease) Diabetes mellitus Prostate cancer Mother Breast cancer Thyroid cancer CVD (cardiovascular disease) Brother Thyroid cancer Social History Housing: Apartment Alcohol intake: current Alcohol intake frequency: holidays/special occasions only Alcohol type: wine Patient Tobacco Use Status: Current everyday Tobacco user Tobacco use type: Cigarette Cigarette Packs Per Day: 0.25 Cigarettes Per Day: 3 e-Cigarette/Vaping Use: Never Used Second Hand Smoke Exposure: Yes service: No 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 Gender identity: Female Cognitive needs: No Hearing needs: No Vision needs: Yes (Glass) Female Reproductive History Menstrual Age of Menarche: 16 Review of Systems Const All systems reviewed & are unremarkable except as noted in HPI and below Physical Exam Vital Signs: Last Vital Signs BP 112/70 04/19/25 15:36 Const General: cooperative, healthy appearing and no acute distress Orientation/consciousness: patient oriented x3 GI Inspection: Yes normal to inspection Palpation (GI): Soft to palpation and Other GI palpation findings present (Nontender) Rectal Exam - Female: visual inspection normal General: Yes bladder normal to palpation External Female Exam: normal appearance of the urethra Speculum Exam - Vagina: normal appearance of the vagina, normal palpation and normal vaginal discharge Speculum Exam - Cervix: normal appearance of the cervix, normal palpation and Other cervical findings present (Post LEEP appearance) Bimanual exam- vagina & uterus: normal bimanual exam, normal palpation, uterine size normal, bladder normal to palpation, normal palpation, uterine shape normal and non-tender Bimanual Exam- Adnexa, other: normal adnexae Neuro General: patient oriented x3 Assessment & Plan Assessment & Plan (1) PID (pelvic inflammatory disease) contact, treated: Code(s): Z20.2 - Contact with and (suspected) exposure to infections with a predominantly sexual mode of transmission Plan Advised to complete all her medications, safe sex and use of condoms. Schedule mammogram. Orders placed. Advised to schedule annual exam prior to leaving the office today. STI blood work ordered. The patient expressed understanding and agreement with the plan of care. All of her questions and concerns were addressed to the best of my ability. This note is constructed using voice recognition software. While every effort has been made to ensure accuracy, software engineer kernel errors may have been included. Orders: Orders Hepatitis C Antibody Reflex Today Z20.2 - Contact with and (suspected) exposure to infections with a predominantly sexual mode of transmission HIV Ab/Ag Today Z20.2 - Contact with and (suspected) exposure to infections with a predominantly sexual mode of transmission Hepatitis B Core Antibody Today Z20.2 - Contact with and (suspected) exposure to infections with a predominantly sexual mode of transmission Syphilis Screen Today Z20.2 - Contact with and (suspected) exposure to infections with a predominantly sexual mode of transmission MM tomosynthesis screening BI Today Z12.31 - Encounter for screening mammogram for malignant neoplasm of breast Coding Level of Care Code Est Pt Level 3 (41141) Diagnoses PID (pelvic inflammatory disease) contact, treated Z20.2
== END 2025-04-19 16:08 | disposition home or self-care (01) ==
LOC: HO.HWS 15:34
PROVIDERS: PCP Internal Medicine; Visit Provider Advanced Practice Midwife
DX: Z20.2 Contact with and (suspected) exposure to infections with a predominantly sexual mode of transmission (principal)
CPT/HCPCS: 99213

== ENCOUNTER 2025-04-19 15:34 | Outpatient (REF) | payer OTHER, SELFPAY ==
[2025-04-20 08:45] LABS: Syphilis Screen Nonreactive (Nonreactive)
[2025-04-20 08:51] LABS: HBc Num1 0.14 S/CO (0.00-0.79); HIV AB/AG Nonreactive (Nonreactive); HIV Num 1 0.06 S/CO (0.00-0.99); Hepatitis B Core Antibody Nonreactive (Nonreactive); ~Hepatitis C Antibody Nonreactive (Nonreactive)
== END 2025-04-19 15:35 | disposition home or self-care (01) ==
LOC: HO.LAB 15:34
PROVIDERS: PCP Internal Medicine; Visit Provider Advanced Practice Midwife
DX: Z20.2 Contact with and (suspected) exposure to infections with a predominantly sexual mode of transmission (principal)
CPT/HCPCS: 36415; 86704; 86780; 86803; 87389

== ENCOUNTER 2025-05-01 11:19 | Outpatient (REF) | payer OTHER, SELFPAY | END 2025-05-01 11:20 | disposition home or self-care (01) | LOC: HO.MAMMO 11:19 | PROVIDERS: PCP Internal Medicine; Visit Provider Advanced Practice Midwife | DX: Z12.31 Encounter for screening mammogram for malignant neoplasm of breast (principal) | CPT/HCPCS: 77063; 77067 ==

== ENCOUNTER → 2025-05-01 11:30 | Outpatient (BNV) | payer OTHER, SELFPAY | PROVIDERS: PCP Internal Medicine; Visit Provider Radiology Body Imaging | DX: Z12.31 Encounter for screening mammogram for malignant neoplasm of breast (principal) | CPT/HCPCS: 77063; 77067 ==

== ENCOUNTER 2025-07-15 14:35 | Emergency (ER) | payer OTHER, SELFPAY ==
--- NOTE | ~2025-07-15 | XR_ITS ---
CLINICAL HISTORY: fall, pain Radiographs of the right wrist, 4 views Comparison: None available Findings: No fracture or dislocation. The joint spaces are preserved without osteophytosis. 5 mm cyst in the scaphoid. Soft tissue swelling. Impression: No fracture. This document has been electronically signed by: Hanh Medel MD on 07/15/2025 15:52:28
--- NOTE | ~2025-07-15 | XR_ITS ---
CLINICAL HISTORY: fall, pain Radiographs of the lumbar spine, 3 views Comparison: 08/13/23 Findings: There is normal alignment. No fracture. The vertebral body heights and intervertebral disc spaces are preserved. Mild lower lumbar facet hypertrophy. Clips in the right upper quadrant. Impression: No acute findings. Mild degenerative change. This document has been electronically signed by: Hanh Medel MD on 07/15/2025 15:53:03
--- NOTE | ~2025-07-15 | CT_ITS ---
CLINICAL HISTORY: fall with head strike, headache bl vision CT head without contrast Comparison: None available Findings: No acute hemorrhage. No extra-axial fluid collection. No hydrocephalus, mass-effect or herniation. Padron-white differentiation is maintained. White matter is within normal limits for age. No acute orbital pathology. No acute soft tissue abnormality. No fracture. The visualized paranasal sinuses are predominantly clear. The mastoid air cells are clear. Impression: No acute findings. This document has been electronically signed by: Hanh Medel MD on 07/15/2025 19:22:19
[2025-07-15 14:37] VITALS: BP 182/93; PULSE 79; RESP 16; TEMP 36.4; O2SAT 97; BMI 34.1
--- NOTE | 2025-07-15 14:37 | ED_ITS ---
HPI - General Adult General Chief complaint: Fall Stated complaint: head injury, back injury Time Seen by Provider: 07/15/25 16:37 Source: patient Mode of arrival: ambulatory Limitations: no limitations History of Present Illness ED Provider: Dr. Medina HPI narrative: 45-year-old female presented hospital today after falling off bed. She is complaining of pain on the right side of her body. Patient was trying to clean the ceiling fan when she lost her balance and hit the dresser. She is complaining of right wrist pain right shoulder pain, low back pain, right leg pain in her knee and pain in her ankles. She is able to ambulate without any issues. Patient states she does have tenderness of the right wrist area she is able to have full range of motion in her right shoulder. Denies any C-spine injury Related Data Home Medications ?Medication ?Instructions ?Recorded ?Confirmed riboflavin (vitamin B2) 250 mg 200 mg PO DAILY 0 08/21/24 tablet,extended release latanoprost 0.005 % eye drops 1 drp ophthalmic (eye) B EDTIME 08/04/23 08/21/24 Previous Rx's ?Medication ?Instructions ?Recorded loratadine 10 mg tablet (Allergy 10 mg PO DAILY PRN al lergy 09/09/20 Relief (loratadine)) symptoms 90 days #90 tabs baclofen 10 mg tablet 10 mg PO TID PRN for muscle spasm 02/28/21 #90 tabs esomeprazole magnesium 40 mg 40 mg PO DAILY #90 caps 1 capsule,delayed release budesonide 90 mcg/actuation breath 1 inh inhalation BI D #1 ea 08/21/24 activated powder inhaler (Pulmicort Flexhaler) cholecalciferol (vitamin D3) 50 50 mcg PO DAILY 90 day s #90 caps 08/21/24 mcg (2,000 unit) capsule Ventolin HFA 90 mcg/actuation 2 puff inhalation Q6H NC N 12/22/24 aerosol inhaler (albuterol sulfate) shortness of breat h or wheezing 30 days #18 grams bupropion HCl 150 mg 24 hr tablet, 150 mg PO QAM 90 da ys #90 tabs 01/15/25 extended release famotidine 20 mg tablet 20 mg PO BEDTIME #90 tabs doxycycline hyclate 100 mg capsule 100 mg PO BID 14 da ys #27 caps 04/05/25 metronidazole 500 mg tablet 500 mg PO BID #27 tabs 10/18 ondansetron 4 mg disintegrating 4 mg PO Q8H PRN nausea and 04/09/25 tablet vomiting #10 tabs cyclobenzaprine 5 mg tablet 5 mg PO TID PRN muscle spa sm #10 07/15/25 tabs lidocaine 5 % topical patch 1 patch topical DAILY #15 ea 07/15/25 Allergies Allergy/AdvReac Type Severity Reaction Status Date / Time mold Allergy Severe SOB, feels Verified 07/15/25 14:40 really sick No Known Drug Allergies Allergy Unknown none Verified 07/15/25 14:40 Review of Systems Review of Systems: Pertinent review of systems as mentioned in HPI. All other system otherwise negative. [facility], [facility] Past Medical History [facility], [facility] Narrative: Medical history as mentioned in HPI Medical History Vitamin D deficiency Positive PPD Low back pain Anxiety Neck pain on left side Obesity (BMI 30-39.9) Allergic rhinitis Migraine Asthma Seasonal allergies History of sciatica History of cholelithiasis History of active tuberculosis History of abnormal cervical Pap smear Surgical History Hx of colonoscopy History of esophagogastroduodenoscopy (EGD) Hx laparoscopic cholecystectomy History of bilateral tubal ligation History of loop electrical excision procedure (LEEP) Family History Family History Father HTN (hypertension) CVD (cardiovascular disease) Diabetes mellitus Prostate cancer Mother Breast cancer Thyroid cancer CVD (cardiovascular disease) Brother Thyroid cancer Social History Social History Housing: Apartment Alcohol intake: current Alcohol intake frequency: holidays/special occasions only Alcohol type: wine Patient Tobacco Use Status: Current everyday Tobacco user Tobacco use type: Cigarette Cigarette Packs Per Day: 0.25 Cigarettes Per Day: 3 e-Cigarette/Vaping Use: Never Used Second Hand Smoke Exposure: Yes Advance Directives: No Advance Directives Information Provided: Yes service: No 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 Gender identity: Female Cognitive needs: No Hearing needs: No Vision needs: Yes (Glass) Physical Exam ED Exam Exam: General: Pleasant, no distress, interacting appropriately Head: Normacephalic, atraumatic ENT: oral mucosa moist, neck supple, no tracheal deviation, no C-spine tenderness Extremities: Right knee tenderness, right wrist tenderness, right shoulder tenderness, no signs of obvious deformity. Full range of motion CMS intact in the right upper and right lower extremity, she does have low back pain palpation Neurological: Awake and alert, no facial droop noted Skin: Warm and dry Psychiatric: Appropriate mood and thoughts Vital Signs: Vital Signs - 24 hr 07/15/25 14:37 07/15/25 18:09 Temperature 97.5 F 98.1 F Pulse Rate 79 76 Respiratory Rate 16 18 Blood Pressure 182/93 H 147/86 H Pulse Oximetry 97 98 Oxygen Delivery Method Room Air Room Air BMI result Body Mass Index 34.1 Course Course Course Narrative: This is a rapid medical exam performed by Beckie Mas NP: Additional HPI, ROS, PE not included below will be deferred to primary provider. Patient is a 45y/o F presenting to the ED complaining of headache, blurry vision, nausea, R wrist pain and lower back pain. Denies LOC, not anticoagulated. States she was cleaning the ceiling fan in her room. Fell off bed, hit back of head, landed on R wrist, and lower back. Plan: CT head, wrist, lumbar xrays Medications Administered Discontinued Medications Generic Name Dose Route Start Last Admin Trade Name Freq PRN Reason Stop Dose Admin Ibuprofen 400 mg 07/15/25 16:39 07/15/25 16:56 Ibuprofen 400 Mg Tablet PO 07/15/25 16:40 400 mg ONCE ONE Administration Medical Decision Making Medical Decision Making [facility] Narrative: 45-year-old female presented hospital today for evaluation of right upper extremity and right lower extremity pain. After falling off the bed. She also stated that she hit her head against a dresser. Patient's x-ray of the low back, and right wrist is negative. Patient was able to bear weight after the fall. I do not think she has fracture in her lower extremities. Full range of motion intact on exam. CT head is currently pending the final results. Ibuprofen will be given to patient for pain control. Patient's CT head is negative. We will plan to give patient a dose of Tylenol and Flexeril here for her symptoms. We will plan to discharge patient. Differential Diagnosis Differential Diagnoses: The differential diagnosis associated with the presentation includes Intracranial hemorrhage, wrist sprain, knee contusion, contusion of the right shoulder Independent Interpretation I performed an independent interpretation of an: Plain X-Ray and CT Scan Radiology Impression Discussion of test interpretation with radiology: I have reviewed the radiologist's reading. Discharge Plan Discharge Clinical Impression: Fall Qualifiers: Encounter type: initial encounter Qualified Code(s): W19.XXXA - Unspecified fall, initial encounter Patient Disposition: Home, Self-Care Prescriptions: New cyclobenzaprine 5 mg tablet 5 mg PO TID PRN (Reason: muscle spasm) Qty: 10 0RF lidocaine 5 % adhesive patch,medicated 1 patch topical DAILY Qty: 15 0RF Rx Instructions: leave on most painful area for up to 12 hrs No Action baclofen 10 mg tablet 10 mg PO TID PRN (Reason: for muscle spasm) Qty: 90 0RF esomeprazole magnesium 40 mg capsule,delayed release(DR/EC) 40 mg PO DAILY Qty: 90 1RF albuterol sulfate [Ventolin HFA] 90 mcg/actuation HFA aerosol inhaler 2 puff inhalation Q6H PRN (Reason: shortness of breath or wheezing) 30 Days Qty: 18 5RF bupropion HCl 150 mg tablet extended release 24 hr 150 mg PO QAM 90 Days Qty: 90 1RF famotidine 20 mg tablet 20 mg PO BEDTIME Qty: 90 1RF doxycycline hyclate 100 mg capsule 100 mg PO BID 14 Days Qty: 27 0RF metronidazole 500 mg tablet 500 mg PO BID Qty: 27 0RF ondansetron 4 mg tablet,disintegrating 4 mg PO Q8H PRN (Reason: nausea and vomiting) Qty: 10 0RF loratadine [Allergy Relief (loratadine)] 10 mg tablet 10 mg PO DAILY PRN (Reason: allergy symptoms) 90 Days Qty: 90 3RF riboflavin (vitamin B2) 250 mg tablet extended release 200 mg PO DAILY latanoprost 0.005 % drops 1 drp ophthalmic (eye) BEDTIME cholecalciferol (vitamin D3) 50 mcg (2,000 unit) capsule 50 mcg PO DAILY 90 Days Qty: 90 3RF Pulmicort Flexhaler 90 mcg/actuation aerosol powdr breath activated 1 inh inhalation BID Qty: 1 3RF Stand Alone Forms: Work/School Release Print Language: Romanian
--- OUTSIDE RECORDS SUMMARY | 2025-07-15 16:13 | XMS_ITS | Encounter Summary ---
Author Organization [facility] Address [address] [facility] [address] [place] [id number] Phone Care Team Providers Care Associate Principal Name Role Phone Samuel Villalta MD Primary Care Provider [phone] Encounter Details Date Type Department Care Team (Late st Contact Info) Description 01/14/2023 Procedure Pass [facility], Ct Scan - [facility] [address] [place] [address] Social History Tobacco Use Types Packs/Day Years Used Date Smoking Tobacco: Never Smokeless Tobacco: Never Alcohol Use Standard Drinks/Week Comments Not Currently 0 (1 standard drink = 0.6 oz pur e alcohol) Intimate Partner Violence Answer Date R ecorded Are you denied basic needs s uch as food, clothing, or medical care? No 10/12/2022 In the past 12 months have y ou been in a relationship with a person who hurts, threatens, or tries to control you? No 10/12/2022 Are you denied basic needs s uch as food, clothing, or medical care? No 10/12/2022 In the past 12 months have y ou been in a relationship with a person who hurts, threatens, or tries to control you? No 10/12/2022 Comments Unknown Sex and Gender Information Value Date Recorded Sex Assigned at Female 10/12/2022 12:01 PM EST Legal Sex Female 8:39 AM EST Gender Identity Female 10/12/2022 12:01 PM EST Sexual Orientation Not on file documented as of this encounter Plan of Treatment Not on file documented as of this encounter Visit Diagnoses Not on filedocumented in this encounter Care Teams Associate Principal Relationship Specialty Start Date End Date Samuel Villalta MD [address] [place] [address] [place] [address] PCP - General Internal Medicine 04/19/21 documented as of this encounter Additional Source Comments The information contained in this document represents components of the legal health record. It is not the complete legal health record.[facility]
--- OUTSIDE RECORDS SUMMARY | 2025-07-15 16:13 | XMS_ITS | Clinical Summary ---
Author Organization [facility] Address [address] [address] Phone Care Team Providers Care Die Sinking Machine Operator Name Role Phone Samuel Villalta MD Primary Care Provider [phone] Allergies No known active allergies Medications ketorolac (TORADOL) 10 mg tablet Take 1 tablet (10 mg total) by mouth every 6 (six) hours as needed for pain (specific location in comments). 10 tablet 10/12/2022 Active Immunizations Immunization Administration Dates Next Due COVID-19 (Pre-08/16) Moderna Vaccine, mRNA, PF 12/10/2021,05/01/2021,04/03/2021 Influenza Quadrivalent MDCK Preservative Free IM 08/10/2023,08/10/2023,08/10/2023,2022 Influenza Recombinant Trival ent Preservative Free IM 07/30/2022,07/31/2021 Social History Tobacco Use Types Packs/Day Years Used Date Smoking Tobacco: Never Smokeless Tobacco: Never Alcohol Use Standard Drinks/Week Comments Not Currently 0 (1 standard drink = 0.6 oz pur e alcohol) Education Answer Date Recorded Are you interested in more education? Not on brittney e 02/19/2023 Are you concerned about learning? Not on file 02/19/2023 No 02/19/2023 No 02/19/2023 Digital Access Answer Date Recorded No 03/20/2023 No 03/20/2023 No 03/20/2023 Reliable internet access at home? Not on file 03/20/2023 Device with a working camera? Not on file Intimate Partner Violence Answer Date R ecorded [...] PM EST Sexual Orientation Not on file Last Filed Vital Signs Vital Sign Reading Time Taken Comments Blood Pressure 137/93 10/12/2022 12:00 PM EST Pulse 77 10/12/2022 12:00 PM EST Temperature 36.5 C (97.7 F) 10/12/2022 12:00 PM EST Respiratory Rate 18 10/12/2022 12:00 PM EST Oxygen Saturation 99% 10/12/2022 12:00 PM EST Inhaled Oxygen Concentration - - Weight 70.3 kg (155 lb) 10/12/2022 12:00 PM EST Height 147.3 cm (4' 10 ) 10/12/2022 12:00 PM EST Body Mass Index 32.4 10/12/2022 12:00 PM EST Plan of Treatment Health Maintenance Due Date Last Done Comments Adult Td,Tdap Booster 1982 DEPRESSION SCREENING 1994 HEPATITIS C SCREENING 2000 HIV ONE-TIME SCREENING (18-65 YEARS) 2000 PAP SMEAR 2003 SMOKING STATUS SCREENING (Once After 26 Yrs) 2008 SCREENING FOR DIABETES 2017 MAMMOGRAM 2022 INFLUENZA VACCINE (#1) 2025 , 08/10/2023, 08/10/2023, Additional history exists COVID-19 VACCINE ( season) 2025 12/10/2021, 05/01/2021, 04/03/2021 HEPATITIS A VACCINES Aged Out No long er eligible based on patient's age to complete this topic HIB VACCINES Aged Out No longer eligi ble based on patient's age to complete this topic MENINGOCOCCAL VACCINES (ACWY) Aged Out No longer eligible based on patient's age to complete this topic MENINGOCOCCAL VACCINES (B) Aged Out N o longer eligible based on patient's age to complete this topic PNEUMOCOCCAL VACCINES (0-49 years) Aged Out No longer eligible based on patient's age to complete this topic Medical Devices Not on file Insurance [facility] Care Teams Die Sinking Machine Operator Relationship Specialty Start Date End Date Samuel Villalta MD [address] [place] [address] [place] [address] PCP - General Internal Medicine 04/19/21 Additional Source Comments The information contained in this document represents components of the legal health record. It is not the complete legal health record.[facility]
--- NOTE | 2025-07-15 17:08 | ED.GENADULT ---
HPI - General Adult General Chief complaint: Fall Stated complaint: head injury, back injury Time Seen by Provider: 07/15/25 16:37 Source: patient Mode of arrival: ambulatory Limitations: no limitations History of Present Illness ED Provider: Dr. Medina Related Data Home Medications ?Medication ?Instructions ?Recorded ?Confirmed riboflavin (vitamin B2) 250 mg 200 mg PO DAILY 08/01/20 08/21/24 tablet,extended release latanoprost 0.005 % eye drops 1 drp ophthalmic (eye) BEDTIME 08/04/23 08/21/24 Previous Rx's ?Medication ?Instructions ?Recorded loratadine 10 mg tablet (Allergy 10 mg PO DAILY PRN allergy 09/09/20 Relief (loratadine)) symptoms 90 days #90 tabs baclofen 10 mg tablet 10 mg PO TID PRN for muscle spasm 02/28/21 #90 tabs esomeprazole magnesium 40 mg 40 mg PO DAILY #90 caps 08/08/24 capsule,delayed release budesonide 90 mcg/actuation breath 1 inh inhalation BID #1 ea 08/21/24 activated powder inhaler (Pulmicort Flexhaler) cholecalciferol (vitamin D3) 50 50 mcg PO DAILY 90 days #90 caps 08/21/24 mcg (2,000 unit) capsule Ventolin HFA 90 mcg/actuation 2 puff inhalation Q6H PRN 12/22/24 aerosol inhaler (albuterol sulfate) shortness of breath or wheezing 30 days #18 grams bupropion HCl 150 mg 24 hr tablet, 150 mg PO QAM 90 days #90 tabs 01/15/25 extended release famotidine 20 mg tablet 20 mg PO BEDTIME #90 tabs 03/08/25 doxycycline hyclate 100 mg capsule 100 mg PO BID 14 days #27 caps 04/05/25 metronidazole 500 mg tablet 500 mg PO BID #27 tabs 04/05/25 ondansetron 4 mg disintegrating 4 mg PO Q8H PRN nausea and 04/09/25 tablet vomiting #10 tabs Allergies Allergy/AdvReac Type Severity Reaction Status Date / Time mold Allergy Severe SOB, feels Verified 07/15/25 14:40 really sick No Known Drug Allergies Allergy Unknown none Verified 07/15/25 14:40 [facility] Past Medical History Medical History Vitamin D deficiency Positive PPD Low back pain Anxiety Neck pain on left side Obesity (BMI 30-39.9) Allergic rhinitis Migraine Asthma Seasonal allergies History of sciatica History of cholelithiasis History of active tuberculosis History of abnormal cervical Pap smear Surgical History Hx of colonoscopy History of esophagogastroduodenoscopy (EGD) Hx laparoscopic cholecystectomy History of bilateral tubal ligation History of loop electrical excision procedure (LEEP) Family History Family History Father HTN (hypertension) CVD (cardiovascular disease) Diabetes mellitus Prostate cancer Mother Breast cancer Thyroid cancer CVD (cardiovascular disease) Brother Thyroid cancer Social History Social History Housing: Apartment Alcohol intake: current Alcohol intake frequency: holidays/special occasions only Alcohol type: wine Patient Tobacco Use Status: Current everyday Tobacco user Tobacco use type: Cigarette Cigarette Packs Per Day: 0.25 Cigarettes Per Day: 3 e-Cigarette/Vaping Use: Never Used Second Hand Smoke Exposure: Yes Advance Directives: No Advance Directives Information Provided: Yes service: No 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 Gender identity: Female Cognitive needs: No Hearing needs: No Vision needs: Yes (Glass) Physical Exam ED Vital Signs: Vital Signs - 24 hr 07/15/25 14:37 07/15/25 18:09 Temperature 97.5 F 98.1 F Pulse Rate 79 76 Respiratory Rate 16 18 Blood Pressure 182/93 H 147/86 H Pulse Oximetry 97 98 Oxygen Delivery Method Room Air Room Air BMI result Body Mass Index 34.1 Medications Administered Discontinued Medications Generic Name Dose Route Start Last Admin Trade Name Freq PRN Reason Stop Dose Admin Ibuprofen 400 mg 07/15/25 16:39 07/15/25 16:56 Ibuprofen 400 Mg Tablet PO 07/15/25 16:40 400 mg ONCE ONE Administration Discharge Plan Discharge Clinical Impression: Fall Qualifiers: Encounter type: initial encounter Qualified Code(s): W19.XXXA - Unspecified fall, initial encounter Patient Disposition: Home, Self-Care Prescriptions: No Action baclofen 10 mg tablet 10 mg PO TID PRN (Reason: for muscle spasm) Qty: 90 0RF esomeprazole magnesium 40 mg capsule,delayed release(DR/EC) 40 mg PO DAILY Qty: 90 1RF albuterol sulfate [Ventolin HFA] 90 mcg/actuation HFA aerosol inhaler 2 puff inhalation Q6H PRN (Reason: shortness of breath or wheezing) 30 Days Qty: 18 5RF bupropion HCl 150 mg tablet extended release 24 hr 150 mg PO QAM 90 Days Qty: 90 1RF famotidine 20 mg tablet 20 mg PO BEDTIME Qty: 90 1RF doxycycline hyclate 100 mg capsule 100 mg PO BID 14 Days Qty: 27 0RF metronidazole 500 mg tablet 500 mg PO BID Qty: 27 0RF ondansetron 4 mg tablet,disintegrating 4 mg PO Q8H PRN (Reason: nausea and vomiting) Qty: 10 0RF loratadine [Allergy Relief (loratadine)] 10 mg tablet 10 mg PO DAILY PRN (Reason: allergy symptoms) 90 Days Qty: 90 3RF riboflavin (vitamin B2) 250 mg tablet extended release 200 mg PO DAILY latanoprost 0.005 % drops 1 drp ophthalmic (eye) BEDTIME cholecalciferol (vitamin D3) 50 mcg (2,000 unit) capsule 50 mcg PO DAILY 90 Days Qty: 90 3RF Pulmicort Flexhaler 90 mcg/actuation aerosol powdr breath activated 1 inh inhalation BID Qty: 1 3RF Stand Alone Forms: Work/School Release Print Language: Polish
[2025-07-15 18:09] VITALS: BP 147/86; PULSE 76; RESP 18; TEMP 36.7; O2SAT 98
--- NOTE | 2025-07-15 20:25 | PC.NURSE ---
Medicated per mar, reviewed discharge instruction with pt. pt verbalized understanding, no sign of distress.
[2025-07-15 20:26] VITALS: BP 147/86; PULSE 76; RESP 18; TEMP 36.7; O2SAT 98
== END 2025-07-15 20:27 | disposition home or self-care (01) ==
PROVIDERS: Emergency Provider Student in an Organized Health Care Education/Training Program; PCP Internal Medicine
DX: S09.90XA Unspecified injury of head, initial encounter (principal); S69.91XA Unspecified injury of right wrist, hand and finger(s), initial encounter; M54.50 Low back pain, unspecified; M25.511 Pain in right shoulder; R51.9 Headache, unspecified; R11.0 Nausea; H53.8 Other visual disturbances; M25.531 Pain in right wrist; W06.XXXA Fall from bed, initial encounter; Y93.9 Activity, unspecified; Y92.003 Bedroom of unspecified non-institutional (private) residence as the place of occurrence of the external cause; Y99.8 Other external cause status; F17.210 Nicotine dependence, cigarettes, uncomplicated; Z79.899 Other long term (current) drug therapy
CPT/HCPCS: 70450; 72100; 73100; 99284

== ENCOUNTER → 2025-07-15 14:40 | Outpatient (BNV) | payer OTHER, SELFPAY | PROVIDERS: PCP Internal Medicine; Visit Provider Radiology Diagnostic Radiology | DX: S09.90XA Unspecified injury of head, initial encounter (principal); M54.50 Low back pain, unspecified; M25.531 Pain in right wrist; W19.XXXA Unspecified fall, initial encounter | CPT/HCPCS: 70450; 72100; 73100 ==

== ENCOUNTER 2025-07-26 14:03 | Outpatient (AMB) | payer OTHER, SELFPAY ==
[2025-07-26 14:04] VITALS: BP 132/96; PULSE 98; O2SAT 98; BMI 33.2
--- NOTE | 2025-07-26 14:04 | MHC.OFFVIS ---
Vital Signs 07/26/25 14:04 Height 5 ft Weight 170 lb BMI 33.2 BP 132/96 H Blood Pressure Location Rt brachial Position Sitting Pulse 98 Pulse Source Pulse Oximeter Pulse Oximetry (%) 98 Oxygen Delivery Method Room Air Intake Visit Reasons: abd pain f//u Intake Note: ESTABLISHED PATIENT for mgmt of GERD + IBS. Chief Complaint; C.O. chronic sx persistence including nausea, frequent bowel movements, and GERD due to running out of her meds. Pt states that her insurance had run out and had to be switched prior to being able to get refills. Pt reports that she gets her fiber mainly through diet, no supplement currently. Regional Sales Representative Required: No Accompanied by: Self / Same As Patient Allergies mold Allergy (Severe, Verified 07/26/25 14:05) SOB, feels really sick No Known Drug Allergies Allergy (Unknown, Verified 07/26/25 14:05) none HPI HPI abd pain f//u: Details: LAST VISIT: Dysphagia Intermittent diarrhea Abdominal pain GERD (gastroesophageal reflux disease) IBS (irritable bowel syndrome) Hiatal hernia Schatzki's ring Plan Patient will continue Nexium and we will stop sucralfate at bedtime and will start famotidine. Patient was encouraged to avoid dietary triggers and late night snacking pain staying upright for minimum 3 hours after meals discussed with patient. Low FODMAP diet discussed with patient. Patient was encouraged to eat smaller meals and more often. Patient will return to the office in 6 months, she will call us if she will have any GI concerning symptoms. She is agreeable to plan of care and verbalizes understanding of instructions. She was given the opportunity to ask questions and all questions answered. ? Thank you for allowing me to participate in her care New famotidine (Pepcid) 20 mg PO BEDTIME 30 tabs 3RF K21.9 Discontinued sucralfate Discontinued Reason: Doctor's Order 1 g PO BID 60 tabs 4RF R19.7 TODAY'S VISIT Patient is here today for follow-up. Patient reports that she had to cancel her visits with our department 3 times due to her insurance. Patient finally was able to secure insurance and is following up today. Unfortunately with no insurance patient was unable to purchase her medications. She was without Nexium and famotidine for several weeks. Her symptoms of acid reflux, epigastric pain, nausea are getting worse. Patient is trying to take xghb-viy-uawbeet medication, however she feels like they are not helping. Patient reports dyspepsia with occasional dysphagia without odynophagia. Previously esophageal dilation performed on endoscopy. Last one was in March of 2024. Patient reports that she is moving her bowels. For the most part. Currently is not taking fiber. Tries fiber in her diet mainly. [facility] Medical History (Updated 07/26/25 @ 14:34 by Ange Curiel, [facility]) GERD (gastroesophageal reflux disease) Vitamin D deficiency Positive PPD Low back pain Anxiety Neck pain on left side Obesity (BMI 30-39.9) Allergic rhinitis Migraine Asthma Seasonal allergies History of sciatica History of cholelithiasis History of active tuberculosis History of abnormal cervical Pap smear Surgical History Hx of colonoscopy History of esophagogastroduodenoscopy (EGD) Hx laparoscopic cholecystectomy History of bilateral tubal ligation History of loop electrical excision procedure (LEEP) Family History Father HTN (hypertension) CVD (cardiovascular disease) Diabetes mellitus Prostate cancer Mother Breast cancer Thyroid cancer CVD (cardiovascular disease) Brother Thyroid cancer Social History Housing: Apartment Alcohol intake: current Alcohol intake frequency: holidays/special occasions only Alcohol type: wine Patient Tobacco Use Status: Current everyday Tobacco user Tobacco use type: Cigarette Cigarette Packs Per Day: 0.25 Cigarettes Per Day: 3 e-Cigarette/Vaping Use: Never Used Second Hand Smoke Exposure: Yes service: No 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 Gender identity: Female Cognitive needs: No Hearing needs: No Vision needs: Yes (Glass) Female Reproductive History Menstrual Age of Menarche: 16 Review of Systems Const Denies weight gain and Denies weight loss ENT Reports no additional complaints, Denies dysphagia and Denies odynophagia Card Reports no additional complaints Resp Reports no additional complaints GI Reports abdominal pain, Denies belching, Denies melena, Reports bloating, Denies change in bowel habits, Denies constipation, Denies dysphagia, Denies excessive flatus, Denies dyspepsia, Reports heartburn, Denies diarrhea, Reports loose stools (Occasional), Reports nausea, Denies odynophagia and Denies vomiting Reports no additional complaints Musc Reports no additional complaints Neuro Reports no additional complaints Psych Reports no additional complaints Endo Reports no additional complaints Physical Exam Vital Signs: BMI result Body Mass Index 33.2 Const General: healthy appearing, no acute distress and well developed Nutritional Appearance: obese Orientation/consciousness: patient oriented x3 Resp Effort & Inspection: normal respiratory effort, able to speak in complete sentences, no tracheal deviation and symmetric chest movement Auscultation: clear to auscultation bilaterally Cardio Rate: regular rate GI Inspection: Yes normal to inspection, No distended and Yes obesity Palpation (GI): Soft to palpation, not firm, nontender and No hepatosplenomegaly present Auscultation: normal bowel sounds General: Yes no CVA tenderness Back/Spine/Pelvis Back: no CVA tenderness Skin General skin exam: elasticity normal, turgor normal and dry skin Neuro General: patient oriented x3 Psych Appearance: grossly normal Mental Status: mental status grossly normal Assessment & Plan Assessment & Plan (1) Dysphagia: Code(s): R13.10 - Dysphagia, unspecified Category: Medical Qualifiers: Dysphagia type: unspecified Qualified Code(s): R13.10 - Dysphagia, unspecified (2) Intermittent diarrhea: Code(s): R19.7 - Diarrhea, unspecified Category: Medical (3) Abdominal pain: Code(s): R10.9 - Unspecified abdominal pain Category: Medical Qualifiers: Abdominal location: generalized Qualified Code(s): R10.84 - Generalized abdominal pain (4) GERD (gastroesophageal reflux disease): Code(s): K21.9 - Gastro-esophageal reflux disease without esophagitis Category: Medical Qualifiers: Esophagitis presence: esophagitis presence not specified Qualified Code(s): K21.9 - Gastro-esophageal reflux disease without esophagitis (5) Nausea: Code(s): R11.0 - Nausea Plan We will restart the regimen for patient. Continue Nexium. Patient reports that famotidine was not working and was not helping her with nausea. She would get up in the morning nauseous. Will start her on sucralfate. Discussed with patient avoiding dietary triggers only the snacking. Staying upright for minimal 3 hours after meals discussed with patient. Patient will continue low FODMAP diet to prevent from bloating. Fiber sati-rgz-cxesmdc recommend that. Preferably fiber with pre and probiotics. Patient will follow-up in 6 months if she continues to have dysphagia recommended to call our office so we can schedule endoscopy sooner, otherwise we will endoscopy next visit. Follow-up in 6 months, sooner on as needed basis. Patient is agreeable to this plan and verbalizes understanding of instructions. She was given the opportunity to ask questions and all questions answered. Thank you for allowing me to participate in her care Medications: New sucralfate 10 mL PO BEDTIME 400 mL 3RF K21.9 - Gastro-esophageal reflux disease without esophagitis Refilled esomeprazole magnesium 40 mg PO DAILY 90 caps 1RF K21.9 - Gastro-esophageal reflux disease without esophagitis Discontinued famotidine Discontinued Reason: Doctor's Order 20 mg PO BEDTIME 90 tabs 1RF K21.9 - Gastro-esophageal reflux disease without esophagitis Coding Level of Care Code Est Pt Level 4 (23016) Complex EM visit Add On G2211 Diagnoses Dysphagia, unspecified type R13.10 Dysphagia type: unspecified Intermittent diarrhea R19.7 Generalized abdominal pain R10.84 Abdominal location: generalized Gastroesophageal reflux disease, unspecified whether esophagitis present K21.9 Esophagitis presence: esophagitis presence not specified Nausea R11.0 Time Spent (min) 35 Comment 25 minutes spent with patient and additional 10 minutes spent reviewing her records
--- OUTSIDE RECORDS SUMMARY | 2025-07-26 15:42 | XMS_ITS | Clinical Summary ---
Author Organization [facility] Address [address] [address] Phone Care Team Providers Care Counseling Psychologist Name Role Phone Samuel Villalta MD Primary Care Provider [phone] Allergies No known active allergies Medications ketorolac [...] topic Medical Devices Not on file Insurance [facility] Care Teams Counseling Psychologist Relationship Specialty Start Date End Date Samuel Villalta MD [address] [place] [address] [place] [address] PCP - General Internal Medicine 04/19/21 Additional Source Comments The information contained in this document represents components of the legal health record. It is not the complete legal health record.[facility]
--- OUTSIDE RECORDS SUMMARY | 2025-07-26 15:42 | XMS_ITS | Encounter Summary ---
Author Organization [facility] Address [address] [employer] [facility] [address] [place] [id number] Phone Care Team Providers Care Enterprise Systems Engineer Name Role Phone Samuel Villalta MD Primary Care Provider [phone] Encounter Details Date Type Department Care Team (Late st Contact Info) Description 01/14/2023 Procedure [facility], Ct Scan - [facility] [address] [place] [address] Social History Tobacco Use Types Packs/Day Years [...] on filedocumented in this encounter Care Teams Enterprise Systems Engineer Relationship Specialty Start Date End Date Samuel Villalta MD [address] [place] [address] [place] [address] PCP - General Internal Medicine 04/19/21 documented as of this encounter Additional Source Comments The information contained in this document represents components of the legal health record. It is not the complete legal health record.[facility]
== END 2025-07-26 14:28 | disposition home or self-care (01) ==
PROVIDERS: PCP Internal Medicine; Visit Provider Nurse Practitioner Family
DX: R13.10 Dysphagia, unspecified (principal); R19.7 Diarrhea, unspecified; R10.84 Generalized abdominal pain; K21.9 Gastro-esophageal reflux disease without esophagitis; R11.0 Nausea
CPT/HCPCS: 99214; G2211

== ENCOUNTER 2025-08-15 16:28 | Outpatient (AMB) | payer OTHER, SELFPAY ==
[2025-08-15 16:39] VITALS: BP 142/72; PULSE 83; RESP 18; TEMP 36.3; O2SAT 97; BMI 34.2
--- NOTE | 2025-08-15 16:39 | MHC.PC.OV ---
Vital Signs 08/15/25 16:39 Height 5 ft Weight 175 lb 4 oz BMI 34.2 BP 142/72 H Blood Pressure Location Lt brachial Position Sitting Respiration 18 Pulse 83 Pulse Source Pulse Oximeter Temp 97.3 F Temp Source Temporal Artery Scan Pulse Oximetry (%) 97 Oxygen Delivery Method Room Air Intake Visit Reasons: Headache and elevated BPs Chemical Dependency Nurse Required: No Accompanied by: Self / Same As Patient Allergies mold Allergy (Severe, Verified 08/15/25 16:39) SOB, feels really sick No Known Drug Allergies Allergy (Unknown, Verified 08/15/25 16:39) none Medication List - Last Reconciled 08/15/25 by Saji Montgomery MD baclofen 10 mg PO TID PRN budesonide 90 mcg/actuation (Pulmicort Flexhaler) 1 inh inhalation BID bupropion HCl XL 150 mg PO QAM 90 days cholecalciferol (vitamin D3) 50 mcg PO DAILY 90 days cyclobenzaprine 5 mg PO TID PRN esomeprazole magnesium 40 mg PO DAILY latanoprost 0.005% 1 drp ophthalmic (eye) BEDTIME lidocaine 5% 1 patch topical DAILY loratadine (Allergy Relief (loratadine)) 10 mg PO DAILY PRN 90 days ondansetron 4 mg PO Q8H PRN riboflavin (vitamin B2) ER 200 mg PO DAILY sucralfate 10 mL PO BEDTIME Ventolin HFA 90 mcg/actuation (albuterol sulfate) 2 puffs inhalation Q6H PRN 30 days NS Tobacco use date assessed: 08/15/25 Dental Screening Dental Screen Date: 08/15/25 Did you have a dental visit in the last 12 months?: No Did you have a dental problem in the last 6 months where you did not have access to dental care?: No Was dental information given to patient?: No HPI HPI Comments History of Present Illness Details The patient is a 45-year-old female presenting with elevated blood pressure. She reports high blood pressure readings, with the highest recorded at 200 mmHg, attributed to stress from her busy lifestyle, including working two jobs and attending school full-time. She has not been on any antihypertensive medication previously. The patient reports symptoms of anemia, including fatigue and a craving for ice, associated with her anemia diagnosis. She has a history of anemia following childbirth, which resolved but has recently recurred. She has a diagnosis of Irritable Bowel Syndrome (IBS), with symptoms of bloating, constipation, and diarrhea. She manages these symptoms with dietary modifications, although finds it challenging due to her busy schedule. Menopausal symptoms, including joint pain and hot flashes, affect her daily activities and sleep. She attributes some symptoms to menopause, contributing to her overall discomfort. The patient has gained approximately 50 pounds over the past few months, attributed to her busy lifestyle and possible menopausal changes. She reports a lack of time for regular meals and exercise due to her commitments. [facility] Medical History (Updated 08/15/25 @ 17:11 by Saji Montgomery MD) GERD (gastroesophageal reflux disease) Vitamin D deficiency Positive PPD Low back pain Anxiety Neck pain on left side Obesity (BMI 30-39.9) Allergic rhinitis Migraine Asthma Seasonal allergies History of sciatica History of cholelithiasis History of active tuberculosis History of abnormal cervical Pap smear Surgical History Hx of colonoscopy History of esophagogastroduodenoscopy (EGD) Hx laparoscopic cholecystectomy History of bilateral tubal ligation History of loop electrical excision procedure (LEEP) Family History Father HTN (hypertension) CVD (cardiovascular disease) Diabetes mellitus Prostate cancer Mother Breast cancer Thyroid cancer CVD (cardiovascular disease) Brother Thyroid cancer Social History Housing: Apartment Alcohol intake: current Alcohol intake frequency: holidays/special occasions only Alcohol type: wine Patient Tobacco Use Status: Current everyday Tobacco user Tobacco use type: Cigarette Cigarette Packs Per Day: 0.25 Cigarettes Per Day: 3 e-Cigarette/Vaping Use: Never Used Second Hand Smoke Exposure: Yes service: No 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 1. Little interest or pleasure in doing things: several days 2. Feeling down, depressed, or hopeless: several days 3. Trouble falling or staying asleep, or sleeping too much: several days 4. Feeling tired or having little energy: several days 5. Poor appetite or overeating: several days 6. Feeling bad about yourself - or that you are a failure or have let yourself or your family down: several days 7. Trouble concentrating on things, such as reading the newspaper or watching television: more than half the days 8. Moving or speaking so slowly that other people could have noticed. Or the opposite - being so fidgety or restless that you have been moving around a lot more than usual: not at all 9. Thoughts that you would be better off or of hurting yourself in some way: not at all Total score: 8 Source: Developed by Drs. Hari Lopez, Thania Pelayo, Koby Arreola and colleagues, with an educational kaitlin from [employer]. Thrive Questionnaire Date Thrive assessed: 08/14/25 I am a: Patient What is your living situation today?: I have a steady place to live Within the past 12 months, did the food you bought not last and you didn't have the money to get more?: I choose not to answer this question Within the past 12 months, did you worry whether your food would run out before you got money to buy more?: I choose not to answer this question Do you have trouble paying for medicines?: No Do you have trouble getting transportation to medical appointments?: No Do you have trouble paying your heating and electricity bill?: No Do you have trouble taking care of your child, family member or friend?: No Do you have trouble with day-to-day activities such as bathing, preparing meals, shopping, managing finances, etc.?: No Are you currently unemployed and looking for a job?: No Are you interested in more education?: Yes Please select the resources that you would like help with: None Currently or been in a relationship where the following occur: No concerns reported THRIVE Score: 0 AUDIT C Alcohol Use Questionnaire (AUDIT-C) 1. How often do you have a drink containing alcohol?: 2-3 times a week 2. How many drinks containing alcohol do you have on a typical day when you are drinking?: 3 or 4 3. How often do you have six or more drinks on one occasion?: Weekly Total Score: 7 LATRELL-7 AMB Questionnaire LATRELL-7 Date LATRELL - 7 assessed: 08/21/24 Feeling nervous, anxious, or on edge: 1 = Several days Not being able to stop or control worryin = Several days Worrying too much about different things: 1 = Several days Trouble relaxin = Several days Being so restless that it is hard to sit still: 1 = Several days Becoming easily annoyed or irritable: 1 = Several days Feeling afraid as if something awful might happen: 1 = Several days Total LATRELL-7 score (0-4 normal; 5-9 mild; 10-14 moderate; 15-21 severe): 7 Source: Developed by Drs. Hari Lopez, Thania Pelayo, Koby Arreola and colleagues, with an educational kaitlin from [employer]. Review of Systems Const Details: Positives besides what was mentioned in HPI are in BOLD Constitutional: No Weight Change, No Fever, No Chills, No Night Sweats, No Fatigue, No Malaise ENT/Mouth: No Hearing Changes, No Ear Pain, No Nasal Congestion, No Sinus Pain, No Hoarseness, No sore throat, No Rhinorrhea, No Swallowing Difficulty Eyes: No Eye Pain, No Swelling, No Redness, No Foreign Body, No Discharge, No Vision Changes Cardiovascular: No Chest Pain, No SOB, No PND, No Dyspnea on Exertion, No Orthopnea, No Claudication, No Edema, No Palpitations Respiratory: No Cough, No Sputum, No Wheezing, No Smoke Exposure, No Dyspnea Gastrointestinal: No Nausea, No Vomiting, No Diarrhea, No Constipation, No Pain, No Heartburn, No Anorexia, No Dysphagia, No Hematochezia, No Melena, No Flatulence, No Jaundice Genitourinary: No Dysmenorrhea, No DUB, No Dyspareunia, No Dysuria, No Urinary Frequency, No Hematuria, No Urinary Incontinence, No Urgency, No Flank Pain, No Urinary Flow Changes, No Hesitancy Musculoskeletal: No Arthralgias, No Myalgias, No Joint Swelling, No Joint Stiffness, No Back Pain, No Neck Pain, No Injury History Skin: No Skin Lesions, No Pruritis, No Hair Changes, No Breast/Skin Changes, No Nipple Discharge Neuro: No Weakness, No Numbness, No Paresthesias, No Loss of Consciousness, No Syncope, No Dizziness, No Headache, No Coordination Changes, No Recent Falls Psych: No Anxiety/Panic, No Depression, No Insomnia, No Personality Changes, No Delusions, No Rumination, No SI/HI/AH/VH, No Social Issues, No Memory Changes, No Violence/Abuse Hx., No Eating Concerns Heme/Lymph: No Bruising, No Bleeding, No Transfusions History, No Lymphadenopathy Endocrine: No Polyuria, No Polydipsia, No Temperature Intolerance Physical exam (Primary Care) Vital Signs: Last Vital Signs Temp 97.3 F 08/15/25 16:39 Pulse 83 08/15/25 16:39 Resp 18 08/15/25 16:39 BP 142/72 H 08/15/25 16:39 Pulse Ox 97 08/15/25 16:39 Oxygen Delivery Method Room Air 08/15/25 16:39 BMI result Body Mass Index 34.2 Tobacco/Smoking Status: Tobacco use Status Tobacco use date assessed 08/15/25 08/15/25 16:45 Patient Tobacco Use Status Current everyday Tobacco 08/15/25 16:45 Tobacco use type Cigarette 08/15/25 16:45 e-Cigarette/Vaping Use Never Used 08/15/25 16:45 PHQ-9: PHQ-9 Score PHQ-9: Total score 8 08/15/25 16:45 Thrive Assessment: Date of Thrive Assessment Date Thrive assessed 08/14/25 08/15/25 16:45 Currently or been in a relationship where the following occur: No concerns reported Const Other: Pertinent findings are in BOLD GENERAL APPEARANCE NAD, activity normal for age, well developed/ well nourished, no cyanosis, pallor, or diaphoresis. EYES lids/conjunctiva normal. EARS/NOSE/THROAT Mucous membranes moist, nares normal, lips/teeth normal uvula midline without oral pharyngeal erythema, exudate or swelling TMs normal bilaterally. No lymphangitis/lymphedema. HEAD/NECK normocephalic atraumatic, no facial trauma, neck is supple. RESPIRATORY respiratory effort normal, speaks in full sentences, no tripod position, no accessory muscle use. Lungs clear to auscultation without rhonchi, wheezes, rales CARDIAC Regular rate and rhythm, no edema. ABDOMINAL Soft, ND/NT. No evidence of fluid wave. No pulsatile masses on exam, rebound tenderness, Chowdhury sign or pain over Mcburney's point. MUSCLES/EXTREMITIES No abnormal range of motion, no swelling. SKIN Warm, pink and dry. No rashes, dermatoses, petechiae or lesions. NEUROLOGICAL Speech is clear and appropriate. Normal level of consciousness. Gait and coordination are normal. 5/5 strength in all extremities. PSYCH Normal mood and affect. Judgement/competence is appropriate Coding Level of Care Code Est Pt Level 3 (86329) Diagnoses Weight gain R63.5 Primary hypertension I10 Hypertension type: primary hypertension Time Spent (min) 20 Assessment & Plan Assessment & Plan (1) Weight gain: Code(s): R63.5 - Abnormal weight gain Category: Medical Plan: TSH, folate, vit B12. Advised patient on reducing sugar, red meat, dairy and gluten products. (2) HTN (hypertension): Code(s): I10 - Essential (primary) hypertension Category: Medical Qualifiers: Hypertension type: primary hypertension Qualified Code(s): I10 - Essential (primary) hypertension Plan: Lisinopril 5 mg daily started. Advised patient on lifestyle modification such DASH diet. Plan We discussed initiating lisinopril 5 mg daily to manage the patient's elevated blood pressure, with a target of below 140/70 mmHg. We also talked about checking iron levels, vitamin B12, and folate to assess anemia status. Dietary modifications were recommended to identify IBS triggers, such as excluding dairy and gluten. We considered lifestyle modifications to manage menopausal symptoms and encouraged weight management through dietary changes and increased physical activity. We discussed evaluating fatigue for underlying causes such as anemia and thyroid dysfunction. The patient was advised to continue esomeprazole and assess dietary triggers for acid reflux. Orders: Orders TSH reflex Free T4 Today R63.5 - Abnormal weight gain IRON PROFILE Today R63.5 - Abnormal weight gain Vitamin B12 and Folate Today R63.5 - Abnormal weight gain Vitamin D 25-OH (D2 and D3) Today R63.5 - Abnormal weight gain Medications: New lisinopril 5 mg PO DAILY 60 tabs 3RF
--- OUTSIDE RECORDS SUMMARY | 2025-08-15 22:07 | XMS_ITS | Clinical Summary ---
Author Organization [facility] Address [address] [address] Phone Care Team Providers Care Instantizer Operator Name Role Phone Samuel Villalta MD Primary Care Provider [phone] Allergies No known active allergies Medications ketorolac [...] topic Medical Devices Not on file Insurance [facility] Care Teams Instantizer Operator Relationship Specialty Start Date End Date Samuel Villalta MD [address] [place] [address] [place] [address] PCP - General Internal Medicine 04/19/21 Additional Source Comments The information contained in this document represents components of the legal health record. It is not the complete legal health record.[facility]
--- OUTSIDE RECORDS SUMMARY | 2025-08-15 22:07 | XMS_ITS | Encounter Summary ---
Author Organization [facility] Address [address] [facility] [address] [place] [id number] Phone Care Team Providers Care Placement Director Name Role Phone Samuel Villalta MD Primary Care Provider [phone] Encounter Details Date Type Department Care Team (Late st Contact Info) Description 01/14/2023 Procedure Pass [facility], Ct Scan - [facility] [address] [place] [address] Social History Tobacco Use Types Packs/Day Years [...] on filedocumented in this encounter Care Teams Placement Director Relationship Specialty Start Date End Date Samuel Villalta MD [address] [place] [address] [place] [address] PCP - General Internal Medicine 04/19/21 documented as of this encounter Additional Source Comments The information contained in this document represents components of the legal health record. It is not the complete legal health record.[facility]
== END 2025-08-15 17:13 | disposition home or self-care (01) ==
LOC: HO.HMCH 16:28
PROVIDERS: PCP Internal Medicine; Visit Provider Internal Medicine
DX: R63.5 Abnormal weight gain (principal); I10 Essential (primary) hypertension

== ENCOUNTER 2025-08-22 14:03 | Outpatient (AMB) | payer OTHER, SELFPAY ==
[2025-08-22 14:13] VITALS: BMI 34.2
--- NOTE | 2025-08-22 14:13 | MHC.OFFVIS ---
Vital Signs 08/22/25 14:13 Height 5 ft Weight 175 lb BMI 34.2 Intake Visit Reasons: PID follow up Intake Note: No concerns or pain from PID Magazine Feeder Required: No Information Interpreted: non-clinical & clinical Accompanied by: Self / Same As Patient Allergies mold Allergy (Severe, Verified 08/22/25 14:14) SOB, feels really sick No Known Drug Allergies Allergy (Unknown, Verified 08/22/25 14:14) none Medication List - Last Reconciled 08/22/25 by Priti Hassan LPN baclofen 10 mg PO TID PRN budesonide 90 mcg/actuation (Pulmicort Flexhaler) 1 inh inhalation BID bupropion HCl XL 150 mg PO QAM 90 days cholecalciferol (vitamin D3) 50 mcg PO DAILY 90 days cyclobenzaprine 5 mg PO TID PRN esomeprazole magnesium 40 mg PO DAILY latanoprost 0.005% 1 drp ophthalmic (eye) BEDTIME lidocaine 5% 1 patch topical DAILY lisinopril 5 mg PO DAILY loratadine (Allergy Relief (loratadine)) 10 mg PO DAILY PRN 90 days ondansetron 4 mg PO Q8H PRN riboflavin (vitamin B2) ER 200 mg PO DAILY sucralfate 10 mL PO BEDTIME Ventolin HFA 90 mcg/actuation (albuterol sulfate) 2 puffs inhalation Q6H PRN 30 days NS Is last menstrual period known: Yes Last menstrual period: 08/19/25 Do you need a note to return to daycare/school/sports/work: No HPI Comments Details: Patient is here today for a follow up PID pelvic recheck. She admits to feeling tired and feeling off, has been seen recently and has lab work ordered. She denies any pelvic pain, abnormal discharge or other concerns. Currently has a her menses. [facility] Medical History (Updated 08/22/25 @ 14:57 by Lesli Landin CNM) GERD (gastroesophageal reflux disease) Vitamin D deficiency Positive PPD Low back pain Anxiety Neck pain on left side Obesity (BMI 30-39.9) Allergic rhinitis Migraine Asthma Seasonal allergies History of sciatica History of cholelithiasis History of active tuberculosis History of abnormal cervical Pap smear Surgical History Hx of colonoscopy History of esophagogastroduodenoscopy (EGD) Hx laparoscopic cholecystectomy History of bilateral tubal ligation History of loop electrical excision procedure (LEEP) Family History Father HTN (hypertension) CVD (cardiovascular disease) Diabetes mellitus Prostate cancer Mother Breast cancer Thyroid cancer CVD (cardiovascular disease) Brother Thyroid cancer Social History Housing: Apartment Alcohol intake: current Alcohol intake frequency: holidays/special occasions only Alcohol type: wine Patient Tobacco Use Status: Current everyday Tobacco user Tobacco use type: Cigarette Cigarette Packs Per Day: 0.25 Cigarettes Per Day: 3 e-Cigarette/Vaping Use: Never Used Second Hand Smoke Exposure: Yes service: No 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 Gender identity: Female Cognitive needs: No Hearing needs: No Vision needs: Yes (Glass) Female Reproductive History Menstrual Age of Menarche: 16 Date of last menstrual period: 08/19/25 control method: permanent sterilization Review of Systems Const All systems reviewed & are unremarkable except as noted in HPI and below Physical Exam Vital Signs: BMI result Body Mass Index 34.2 Const General: cooperative, healthy appearing and no acute distress Orientation/consciousness: patient oriented x3 GI Inspection: Yes normal to inspection Palpation (GI): Soft to palpation and Other GI palpation findings present (Nontender) Rectal Exam - Female: visual inspection normal General: Yes bladder normal to palpation External Female Exam: normal appearance of the urethra Speculum Exam - Vagina: normal appearance of the vagina, normal palpation, normal vaginal discharge and vaginal bleeding Speculum Exam - Cervix: normal appearance of the cervix and normal palpation Bimanual exam- vagina & uterus: normal bimanual exam, normal palpation, uterine size normal, bladder normal to palpation, normal palpation, uterine shape normal and non-tender Bimanual Exam- Adnexa, other: normal adnexae OB/external & speculum: vaginal bleeding Neuro General: patient oriented x3 Assessment & Plan Assessment & Plan (1) PID (acute pelvic inflammatory disease): Code(s): N73.0 - Acute parametritis and pelvic cellulitis Plan Monitor menses, report any abnormal bleeding patterns. Schedule AG 03/2026. The patient expressed understanding and agreement with the plan of care. All of her questions and concerns were addressed to the best of my ability. This note is constructed using voice recognition software. While every effort has been made to ensure accuracy, military science instructor errors may have been included. Coding Level of Care Code Est Pt Level 3 (29595) Diagnoses PID (acute pelvic inflammatory disease) N73.0
--- OUTSIDE RECORDS SUMMARY | 2025-08-22 18:05 | XMS_ITS | Clinical Summary ---
Author Organization [facility] Address [address] [address] Phone Care Team Providers Care Pmo Lead Name Role Phone Samuel Villalta MD Primary Care Provider [phone] Allergies No known active allergies Medications ketorolac [...] topic Medical Devices Not on file Insurance [facility] Care Teams Pmo Lead Relationship Specialty Start Date End Date Samuel Villalta MD [address] [place] [address] [place] [address] PCP - General Internal Medicine 04/19/21 Additional Source Comments The information contained in this document represents components of the legal health record. It is not the complete legal health record.[facility]
--- OUTSIDE RECORDS SUMMARY | 2025-08-22 18:05 | XMS_ITS | Encounter Summary ---
Author Organization [facility] Address [address] [employer] [facility] [address] [place] [phone] Phone Care Team Providers Care Bar Back Name Role Phone Samuel Villalta MD Primary Care Provider [phone] [phone] Encounter Details Date Type Department Care Team (Late st Contact Info) Description 01/14/2023 Procedure Pass [facility], Ct Scan - [facility] [address] [place] [address] Social History Tobacco Use Types Packs/Day Years [...] on filedocumented in this encounter Care Teams Bar Back Relationship Specialty Start Date End Date Samuel Villalta MD [address] [place] [address] [place] [address] PCP - General Internal Medicine 04/19/21 documented as of this encounter Additional Source Comments The information contained in this document represents components of the legal health record. It is not the complete legal health record.[facility]
== END 2025-08-22 14:52 | disposition home or self-care (01) ==
LOC: HO.HWS 14:05
PROVIDERS: PCP Internal Medicine; Visit Provider Advanced Practice Midwife
DX: N73.0 Acute parametritis and pelvic cellulitis (principal)
CPT/HCPCS: 99213

== ENCOUNTER 2025-08-22 14:03 | Outpatient (REF) | payer OTHER, SELFPAY ==
[2025-08-22 15:54] LABS: Iron 34 mcg/dL (30-160); Percent Iron Saturation 8 % (15-50); Total Iron Binding Capacity 432 mcg/dL (228-428); Unsaturated Iron Binding 398 ug/dL
[2025-08-22 16:22] LABS: Folate 3.7 ng/mL (> or = 4.0); Vitamin B12 313 pg/mL (200-900)
[2025-08-28 20:03] LABS: Vitamin D 25-OH, D2 <4 ng/mL; Vitamin D 25-OH, D3 39 ng/mL; Vitamin D 25-OH, Total 39 ng/mL (30-100)
== END 2025-08-22 14:04 | disposition home or self-care (01) ==
LOC: HO.LAB 14:03
PROVIDERS: Absent Provider Internal Medicine; PCP Internal Medicine; Visit Provider Advanced Practice Midwife
DX: N73.0 Acute parametritis and pelvic cellulitis (principal); R63.5 Abnormal weight gain
CPT/HCPCS: 36415; 82306; 82607; 82746; 83540; 84443